=== PATIENT | female | born 1980 | race Caucasian/White ===

== ENCOUNTER 2023-01-15 11:29 | Emergency (ER) | payer OTHER, SELFPAY ==
[2023-01-15 11:38] VITALS: BP 117/80; PULSE 80; RESP 18; TEMP 36.8; O2SAT 99
--- NOTE | 2023-01-15 12:03 | DI.RAD_ITS ---
Exam(s) XR KNEE RT 4V AP,LAT,DEE,PAT EXAM: XR KNEE RT 4V AP,LAT,DEE,PAT CLINICAL HISTORY: fall, pain. TECHNIQUE: 2D digital imaging was performed of the right knee. Four views obtained. Merchant, AP, la teral and PA tunnel views were obtained. COMPARISON: No exams were available for comparison FINDINGS: BONES: No acute fracture is present. No bony destructive lesion is seen. JOINTS: The knee is normally aligned. No joint effusion is seen. SOFT TISSUE: Normal. IMPRESSION: Unremarkable radiographs of the right knee. DATA REPOSITORY: RADIATION DOSE DELIVERED:
--- NOTE | 2023-01-15 12:26 | ED.GENADUL_ITS ---
Discharge Plan Disposition Patient Disposition: Home Condition: Stable Discharge Details Clinical Impression: Contusion of right knee and lower leg Primary Care Provider: Bernabe Tomlinson ED Provider: Randal Cunha Home Meds and New Rx's Prescriptions: Continued gabapentin 300 mg Capsule 300 mg PO TID aripiprazole 5 mg tablet 5 mg PO DAILY Patient Comments: TAKE ONE TABLET BY MOUTH EVERY DAY quetiapine 400 mg tablet 200 mg PO DAILY Patient Comments: TAKE ONE TABLET BY MOUTH TWICE A DAY Discontinued trazodone 50 MG tablet 150 mg PO HS 0RF Patient Comments: pt states no longer taking Discharge Instructions Instructions: Contusion in Adults (ED) Additional Instructions: Please take acetaminophen (tylenol) - 650mg every 6 hours by mouth as needed for pain. Please use Charlie wrap and crutches. Weight-bear as tolerated over the next few weeks. Try to rest and stay off your knee as much as possible while it hurts. Please contact your primary care physician to arrange follow-up. Return to the ER immediately for any worsening or new concerning symptoms. Discharge Data Discharge Date/Time-TO BE ENTERED AT DEPARTURE: 01/15/23 13:59 Medical Decision Making 1234 -- 42yo f here 6 days post trip and fall with injury to anterior right knee and anterior proximal lower leg. Patient has significant bruising, tenderness and swelling. Consider fracture versus contusion. Will obtain x-ray imaging. Will give Tylenol and ice pack. 1343 --x-ray of the knee and tib-fib interpreted by radiology: No fracture. Plan for Charlie wrap and crutches. Usual customary discharge instructions reviewed with the patient. HPI General Mode of arrival: ambulatory . Date/Time Provider Initiated Documentation: 01/15/23 11:44 . Limitations to Documentation: no limitations . Information obtained by: patient . HPI Narrative: 42-year-old female presents with chief complaint of knee pain. Patient notes she tripped and fell going up her stairs about 6 days ago impacted her anterior right knee. Patient notes she has had continued pain since the fall. Pain worse with ambulation. She has associated bruising and swelling. No other injury. Related Data Home Medications Medication Instructions Recorded Confirmed aripiprazole 5 mg tablet 5 mg PO DAILY 01/15/23 01/15/23 gabapentin 300 mg capsule 300 mg PO TID 01/15/23 01/15/23 quetiapine 400 mg tablet 200 mg PO DAILY 01/15/23 01/15/23 Allergies Allergy/AdvReac Type Severity Reaction Status Date / Time amitriptyline Allergy Severe Numbness Unverified 11/27/17 10:23 of Tongue clonazepam Allergy Unknown Stomach Unverified 11/27/17 10:23 Upset diazepam Allergy Unknown Abd.Pain Unverified 11/27/17 10:23 hydrochlorothiazide Allergy Unknown Dizziness, Unverified 11/27/17 10:23 Hypotension hydroxyzine Allergy Unknown Fatigue Unverified 11/27/17 10:23 paroxetine Allergy Unknown Insomnia, Unverified 11/27/17 10:23 Lightheadedness propranolol Allergy Unknown Dizziness Unverified 11/27/17 10:23 venlafaxine HCl Allergy Unknown Agitation Unverified 11/27/17 10:23 [From Effexor] bupropion Allergy Anxiety Unverified 11/27/17 10:23 gabapentin Allergy Unverified 11/13/17 13:01 lamotrigine [From Lamictal] Allergy Unverified 11/13/17 13:01 olanzapine [From Zyprexa] Allergy Unverified 11/13/17 13:01 General Stated Complaint: Orthopedic OMAR: 4 Review of Systems Musculoskeletal Musculoskeletal: Reports as per HPI PFSH All Active Problems (Updated 01/15/23 @ 13:44 by Randal Cunha MD) Contusion of right knee and lower leg (Acute) Family History Father Neoplasm Squamous Cell Mother Essential hypertension Hemochromatosis Hyperlipidemia Neoplasm Thyroid Meniere's disease Social History Smoking/Tobacco Use Status: Never Smoking risk assessment performed?: Yes Alcohol Intake: never Drug use: Never Substance use type: does not use Do you feel safe in your relationship?: Yes Exam Cardio Rate: regular rate Rhythm: regular rhythm Pulses: posterior tibial pulses present Neuro Other: Distal right lower extremity motor and sensation intact Extrem Right lower extremity: knee Details: tenderness Location: of the patella and of the proximal tibia, swelling Location: of the patella and of the proximal tibia, abnormal ROM Details: pain with active ROM during Details: in flexion and ecchymosis (anterior knee); no lacerations Course Vital Signs Vital signs: Vital Signs Temperature 36.8 C 01/15/23 11:38 Pulse 80 06/26/23 11:38 Respiratory Rate 18 01/15/23 11:38 Blood Pressure 117/80 01/15/23 11:38 Pulse Oximetry 99 01/15/23 11:38 Temperature 36.8 C 01/15/23 11:38 Temperature Source Oral 01/15/23 11:38 Pulse 80 01/15/23 11:38 Respiratory Rate 18 01/15/23 11:38 Respiratory Effort Normal, Non-Labored 01/15/23 11:41 Blood Pressure 117/80 01/15/23 11:38 Blood Pressure Position Sitting 01/15/23 11:38 Pulse Oximetry 99 01/15/23 11:38 Oxygen Delivery Method Room Air 01/15/23 11:38 Oxygen Flow Rate 0 01/15/23 11:38 Pain Level 7 01/15/23 11:38
[2023-01-15] MEDS: Acetaminophen 500 MG TAB (12:39)
--- NOTE | 2023-01-15 12:49 | DI.RAD_ITS ---
Exam(s) XR TIB/FIB RT EXAM: XR TIB/FIB RT CLINICAL HISTORY: fall pain, ttp prox tibia. TECHNIQUE: 2D digital imaging was performed of the right tibia and fibula. Two images were obtained. AP and lateral views were obtained. COMPARISON: No exams were available for comparison FINDINGS: BONES: No acute fracture is present. No bony destructive lesion is seen. Visualized portion of knee a nd ankle joints are unremarkable. SOFT TISSUE: Soft tissue swelling anteriorly. IMPRESSION: Soft tissue swelling of the leg anteriorly, but no acute fracture or dislocation. DATA REPOSITORY: RADIATION DOSE DELIVERED:
--- NOTE | 2023-01-15 13:56 | NUR.NOTE ---
Nursing Note: Pt Had crutches and kayla wrap ordered. states she has crutches at home and does not want us to give her crutches. kayla wrap applied.
== END 2023-01-15 13:59 | disposition home or self-care (01) ==
PROVIDERS: Emergency Provider Student in an Organized Health Care Education/Training Program; PCP Internal Medicine
DX: S80.01XA Contusion of right knee, initial encounter (principal); W01.0XXA Fall on same level from slipping, tripping and stumbling without subsequent striking against object, initial encounter
CPT/HCPCS: 99284; 73564; 73590; 99283

== ENCOUNTER 2023-08-22 12:34 | Outpatient (REF) | payer MEDICAID, SELFPAY ==
--- OUTSIDE RECORDS SUMMARY | 2023-08-22 12:38 | XMS_ITS | Continuity of Care Document ---
Author Name Unknown Organization [facility] Address [address] [place] [address] Encounter [facility]TT[facility] FIN NBR [id number] Date(s): 10/02/22 - 10/02/[address] [id number] Discharge Disposition: Home or Self Care Attending Physician: ALEJANDRINA GARCIA Admitting Physician: ALEJANDRINA GARCIA Allergies, Adverse Reactions, Alerts Substance Reaction Severity Status gabapentin Tongue swelling Unknown Active Propranolol Hydrochloride Dizziness Unknown Ac tive Xanax Mild Active Valium Moderate Active Amitriptyline Hydrochloride Unknown Active Effexor XR Agitation Unknown Active Clopine Moderate Active HydrOXYzine Hydrochloride Fatigue Unknown Ac tive PARoxetine Hydrochloride Lightheadedness Insomnia Unknown Active diazePAM Abdominal pain Unknown Active hydroCHLOROthiazide Dizziness Unknown Active Assessment and Plan Future Appointments Medications acetaZOLAMIDE 250 mg oral tablet TAKE 1 TABLET BY MOUTH EVERY DAY Start Date: 09/29/22 Status: Ordered ARIPiprazole 5 mg oral tablet 5 mg = 1 tab, Oral, Daily, TAKE 1 TABLET BY MOUTH EVERY DAY Start Date: 09/29/22 Status: Ordered cyclobenzaprine 10 mg oral tablet 10 mg = 1 tab, Oral, TID, PRN pain, # 15 tab, 0 Refill(s) Start Date: 09/29/22 Status: Ordered cyclobenzaprine 10 mg oral tablet 10 mg = 1 tab, Oral, TID, PRN pain, # 15 tab, 0 Refill(s), Pharmacy: [id number], 167.64,cm, 09/29/22 7:16:00 EST, Height/Length Dosing, 77.56, kg, 09/29/22 7:16:00 EST, Weight Dosing Start Date: 09/29/22 Status: Ordered gabapentin 600 mg oral tablet 600 mg = 1 tab, Oral, TID, TAKE 2 TABLETS (1,200 MG) BY MOUTH 3 TIMES PER DAY Start Date: 09/29/22 Status: Ordered HYDROmorphone 2 mg oral tablet 2 mg = 1 tab, Oral, every 4 hr, PRN as needed for pain, # 12 tab, 0 Refill(s), Pharmacy: [id number], 167, cm, 10/01/22 10:20:00 EDT, Height/Length Dosing, 77.11, kg, 10/01/22 10:20:00 EDT,Weight Dosing Start Date: 10/01/22 Status: Ordered hydrOXYzine pamoate 50 mg oral capsule TAKE 2 CAPSULES BY MOUTH TWICE A DAY NEEDED Start Date: 09/29/22 Status: Ordered LORazepam 1 mg oral tablet PLEASE SEE ATTACHED FOR DETAILED DIRECTIONS Start Date: 09/29/22 Status: Ordered QUEtiapine 200 mg oral tablet 200 mg = 1 tab, Oral, Daily, TAKE 1 TABLET BY MOUTH AT BEDTIME Start Date: 09/29/22 Status: Ordered Problem List Condition Confirmation Course Effective Dates Status H ealth Status Informant Alcohol use disorder 1 Confirmed Active Asthma Confirmed Active Drug abuse 2 Confirmed Active Eating disorder Confirmed Active Hemochromatosis 3 Confirmed Active HSV-1 infection Confirmed Active Irritable bowel syndrome (IBS) Confirmed Active Anxiety and depression Confirmed Active PTSD (post-traumatic stress disorder) Confirmed Active RUQ pain Confirmed Active Vertigo Confirmed Active 1Sober 2Sober 3Controlled. Procedures Procedure Date Related Diagnosis Body Site Status Colonoscopy Completed EGD - Esophagogastroduodenoscopy Completed Tooth extraction 1 Comple francisco 13rd molar extraction Results Radiology Reports * Exam Date Time Procedure Performing Provider Status 10/02/22 11:48 AM US Pelvic Complete Key Hughes (Verified) Notes: (US Pelvic Complete) Reason For Exam: right sided pain US Pelvic Complete EXAM DESCRIPTION: US Pelvic Complete 10/02/2022 INDICATION: RIGHT SIDED PAIN TECHNIQUE: Transabdominal Grayscale and color Doppler ultrasound examination of the pelvis. Patient declined transvaginal scanning. Bladder was not well distended which limits evaluation. COMPARISON: CT abdomen/pelvis examination from 09/29/2022 as well as remote pelvic ultrasound from 12/14/2015 FINDINGS: The uterus measures 5.5 cm x 6.5 cm x 3.3 cm. No focal uterine lesion identified. The endometrial stripe was not well defined. The left ovary was not visualized The right ovary measures 3 cm x 3.6 cm x 3.9 cm. Small ovoid hypoechoic lesion on the right ovary with some internal echoes which is difficult to characterize based on incompletely distended bladder. This measures approximately 2.3 x 2.6 x 2.2 cm and may reflect small hemorrhagic cyst. No free fluid. IMPRESSION: Limited study secondary to factors detailed above Ovoid hypoechoic lesion on the right ovary with some internal echoes and through transmission likely reflecting small hemorrhagic cyst. This measures approximately 2.6 x 2.3 x 2.2 cm. Left ovary not identified No focal uterine lesion identified No free fluid. JOB #: [id number] Final Signed by: Heath Montes MD Signed (Electronic Signature): 10/02/2022 11:49 am Social History Social History Type Response Tobacco Former tobacco user Tobacco Use:. Sex Female US Pelvis * Heath Montes MD: VERIFY, VERIFY Event Display: Report EXAM DESCRIPTION: US Pelvic Complete 10/02/2022 INDICATION: RIGHT SIDED PAIN TECHNIQUE: Transabdominal Grayscale and color Doppler ultrasound examination of the pelvis. Patient declined transvaginal scanning. Bladder was not well distended which limits evaluation. COMPARISON: CT abdomen/pelvis examination from 09/29/2022 as well as remote pelvic ultrasound from 12/14/2015 FINDINGS: The uterus measures 5.5 cm x 6.5 cm x 3.3 cm. No focal uterine lesion identified. The endometrial stripe was not well defined. The left ovary was not visualized The right ovary measures 3 cm x 3.6 cm x 3.9 cm. Small ovoid hypoechoic lesion on the right ovary with some internal echoes which is difficult to characterize based on incompletely distended bladder. This measures approximately 2.3 x 2.6 x 2.2 cm and may reflect small hemorrhagic cyst. No free fluid. IMPRESSION: Limited study secondary to factors detailed above Ovoid hypoechoic lesion on the right ovary with some internal echoes and through transmission likely reflecting small hemorrhagic cyst. This measures approximately 2.6 x 2.3 x 2.2 cm. Left ovary not identified No focal uterine lesion identified No free fluid. JOB #: [id number] Final Signed by: Heath Montes MD Signed (Electronic Signature): 10/02/2022 11:49 am Patient Care team information Care Team Related Persons Name: LEONORA RAMIREZ Address: Home
--- OUTSIDE RECORDS SUMMARY | 2023-08-22 12:38 | XMS_ITS | Patient Health Record ---
Author Name Unknown Organization [facility], [facility] Address [address], [place] [id number] Care Team Providers Care Academic Director Name Role Phone Kimberly Skipbing Primary Care Provider [phone] Ayse Rivera Unavailable [phone] Dewey Capellan Unavailable [phone] ALLERGIES Allergen (clinical drug ingredient) Drug/Non Drug Allergy documented on EMR Reaction Allergy Type Onset Date Status cephalexin Cephalexin swallow difficulties Drug Allergy Active morphine Morphine vomiting Drug Allergy Active RESULTS Component Value Reference Range Notes In-house Rapid Strep Reviewed date:12/25/2022 12:55:51 PM Interpretation: Performing Lab: Notes/Report: Rapid Strep negative negative IRON AND TOTAL IRON BINDING CAPACITY Reviewed date:01/12/2023 09:59:26 AM Interpretation: Performing Lab:[facility], [facility] [facility] [employer] [id number]- [address] Notes/Report: Received Date: FASTING:YES FASTING: YES IRON, TOTAL 19 40-190 mcg/dL IRON BINDING CAPACITY 433 250-450 mcg/dL (nia c) % SATURATION 4 16-45 % (calc) CBC (INCLUDES DIFF/PLT) Reviewed date:01/12/2023 09:59:27 AM Interpretation: Performing Lab:[facility], [facility] [id number]- [address] Notes/Report: Received Date: FASTING:YES FASTING: YES WHITE BLOOD CELL COUNT 5.6 3.8-10.8 Thousand/ uL RED BLOOD CELL COUNT 4.51 3.80-5.10 Million/uL HEMOGLOBIN 8.7 11.7-15.5 g/dL HEMATOCRIT 31.1 35.0-45.0 % MCV 69.0 80.0-100.0 fL MCH 19.3 27.0-33.0 pg MCHC 28.0 32.0-36.0 g/dL RDW 17.4 11.0-15.0 % PLATELET COUNT 289 140-400 Thousand/uL MPV 9.8 7.5-12.5 fL ABSOLUTE NEUTROPHILS 2940 4427-6080 cells/uL ABSOLUTE LYMPHOCYTES 2128 850-3900 cells/uL ABSOLUTE MONOCYTES 392 200-950 cells/uL ABSOLUTE EOSINOPHILS 101 15-500 cells/uL ABSOLUTE BASOPHILS 39 0-200 cells/uL NEUTROPHILS 52.5 LYMPHOCYTES 38.0 MONOCYTES 7.0 EOSINOPHILS 1.8 BASOPHILS 0.7 PLATELET ESTIMATION Reviewed date:01/12/2023 09:59:27 AM Interpretation: Performing Lab:[facility], [employer] [id number]- [address] Notes/Report: Received Date: [id number] FASTING:YES FASTING: YES CBC MORPHOLOGY Reviewed date:01/12/2023 09:59:27 AM Interpretation: Performing Lab:[facility], [employer] [id number]- [address] Notes/Report: Received Date: [id number] FASTING:YES FASTING: YES CBC MORPHOLOGY NORMAL Elliptocytes 1 + Anisocytosis 1 + Microcytosis 2 + Polychromasia 1 + Hypochromasia 2 + HEPATIC FUNCTION PANEL Reviewed date:06/13/2023 03:39:03 PM Interpretation: Performing Lab:[facility], [facility], [id number]- [address] Notes/Report: Received Date: [id number] FASTING:NO FASTING: NO PROTEIN, TOTAL 6.1 6.1-8.1 g/dL ALBUMIN 3.8 3.6-5.1 g/dL GLOBULIN 2.3 1.9-3.7 g/dL (calc) ALBUMIN/GLOBULIN RATIO 1.7 1.0-2.5 (calc) BILIRUBIN, TOTAL 0.3 0.2-1.2 mg/dL BILIRUBIN, DIRECT 0.0 < OR = 0.2 mg/dL BILIRUBIN, INDIRECT 0.3 0.2-1.2 mg/dL (calc) ALKALINE PHOSPHATASE 72 31-125 U/L AST 22 10-30 U/L ALT 21 6-29 U/L VITAMIN B12/FOLATE, SERUM PA BRANDON Reviewed date:06/13/2023 03:39:03 PM Interpretation: Performing Lab:Z[facility], [employer] [id number]- [address] Notes/Report: Received Date: FASTING:NO FASTING: NO VITAMIN B12 549 009-2671 pg/mL FOLATE, SERUM 18.6 Reference Range Low: <3.4 Borderline: 3.4-5.4 Normal: >5.4 THYROID PANEL WITH TSH Reviewed date:06/13/2023 03:39:03 PM Interpretation: Performing Lab:[facility], [employer] [id number]- [address] Notes/Report: Received Date: FASTING:NO FASTING: NO T3 UPTAKE 35 22-35 % T4 (THYROXINE), TOTAL 4.5 5.1-11.9 mcg/dL FREE T4 INDEX (T7) 1.6 1.4-3.8 TSH 0.84 Reference Range > or = 20 Years 0.40-4.50 Ranges First trimester 0.26-2.66 Second trimester 0.55-2.73 Third trimester 0.43-2.91 Thyroid Peroxidase (TPO) Ab Reviewed date:06/29/2023 01:52:06 PM Interpretation: Performing Lab:[facility], [facility] [place][Note 2], Phone - [phone], Director - Raz Notes/Report: Thyroid Peroxidase (TPO) Ab 12 0-34 IU/mL Thyroid Panel With TSH Reviewed date:06/29/2023 01:52:06 PM Interpretation: Performing Lab:[facility] [place], [facility] [place][Note 2], Phone - [phone], Director - Raz Notes/Report: TSH 0.854 0.450-4.500 uIU/mL Thyroxine (T4) 4.7 4.5-12.0 ug/dL T3 Uptake 28 24-39 % Free Thyroxine Index 1.3 1.2-4.9 REASON FOR REFERRAL Reason Chronic Headaches Eval and Tx Diagnosis 1 Headache, unspecifie d (R51.9) Referral Organization [facility] Referring Provider First Name Ayse Referring Provider Last Name Miguel Referring Provider Speciality Nurse Julius chahal Referred Provider Dipak Gan MD Referred Provider Specialty Neurology Referral Priority Routine Reason Chronic anemia with hemochromatosis marker Diagnosis 1 Other iron deficienc y anemia (D50.8) Referral Organization [facility] Referring Provider First Name Crescencio Referring Provider Last Name Kimberly Referring Provider Speciality Physician Sewing Machine Tester Referred Provider [facility], . Referred Provider Specialty Hematology/O ncology Referral Priority Routine Reason Unexplained CINDY Co lonoscopy Recommended by Heme Eval and Tx Diagnosis 1 Iron deficiency anem ia, unspecified iron deficiency anemia type (D50.9) Referral Organization [facility] Referring Provider First Name Crescencio Referring Provider Last Name Kimberly Referring Provider Speciality Physician Sewing Machine Tester [facility], . Referred Provider Specialty Gastroentero logy Referral Priority Routine Reason Hgb 8.[address] placed patient on iron pill Patient would like 2nd opinion Diagnosis 1 Iron deficiency anem ia, unspecified iron deficiency anemia type (D50.9) Referral Organization [facility] Referring Provider First Name Crescencio Referring Provider Last Name Kimberly Referring Provider Speciality Physician Sewing Machine Tester Referred Provider [facility], . Referred Provider Specialty Hematology/O ncology Referral Priority Routine Referral Appointment Date 02/14/2023 Reason Please eval test and treat. Diagnosis 1 Palpitation (R00.2) Referral Organization [facility] Referring Provider First Name Crescencio Referring Provider Last Name Kimberly Referring Provider Speciality Physician Sewing Machine Tester Referred Provider [facility], . Referred Provider Specialty Cardiology Referral Priority Routine MEDICATIONS Medication SIG (Take, Route, Frequency, Duration) Notes Start Date End Date Status acetaZOLAMIDE 250 MG 1 tablet Orally Once a day for 30 day(s) Prescribed by Psychiatry Dr. Isaac Castillo Active SEROquel 400 MG 1 tablet at bedtime Orally Once a day for 30 day(s) Dr. Isaac Castillo Active CeleXA 40 MG 1 tablet with meal Orally Once a day Active Abilify 5 MG 1 tablet Orally Once a day for 30 day(s) Active hydrOXYzine HCl Pt states she takes 250mg twice daily Active Gabapentin 600 MG 2 tablets by mouth three times a day Active IMMUNIZATIONS Vaccine Route Administration Date Status Comme nts COVID-19 Bivalent mRNA, LNP-S, PF, 30 mcg/0.3ml Dose ([facility]) Unknown 05/03/2022 Administered COVID-19 mRNA 30 mcg/0.3mL (Pfizer) Unknown 10/26/2020 Administered COVID-19 mRNA 30 mcg/0.3mL (Pfizer) Unknown 11/16/2020 Administered COVID-19 mRNA 30 mcg/0.3mL (Pfizer) Unknown 05/26/2021 Administered COVID-19,mRNA,LNP-S,PF,tri s-sucrose,30mcg/0.3ml (Pfizer) Unknown 06/30/2023 Administered Influenza (Quad), 2 yrs and above Unknown 03/24/2022 Administered Influenza (Quad), 3 yrs and above Unknown 05/25/2018 Administered Influenza (Quad), 3 yrs and above Unknown 05/26/2021 Administered Influenza (Quad), 6 mos + IM Intramuscular 07/02/2023 Admi nistered Pneumococcal Polysac Vaccine 23-V 2 Yrs>SubqIm Unknown 08/26/2019 Administered Tdap Unknown 03/10/2022 Administered SOCIAL HISTORY Tobacco Use: Social History Observation Description Date Details (start date - stop date) Never Smoker NA - NA Sex Assigned At : Social History Observation Description Sex Assigned At Unknown Tobacco Use/Smoking Question Answer Notes Are you a nonsmoker Alcohol Screen (Audit-C) Question Answer Notes Did you have a drink containing alcohol in the p ast year? No Points 0 Interpretation Negative Tobacco use other than smoking: Question Answer Notes Are you an other tobacco user? Yes v apes PROBLEMS Problem Type ICD Code Onset Dates Problem Status W/U Status Risk SNOMED Code Notes Problem Other chronic pain (G89.29) Active confirmed 84394143 Problem Chronic fatigue (R53.82) Active confirmed 68108499 Problem Alcoholism (F10.20) Active confirmed 7235394 Problem DAT (generalized anxiety disorder) (F41.1) Active confirmed 19578750 Problem Abnormal mammogram (R92.8) Active confirmed 170828311 Bilateral focal asymmetries bilateral breasts; probably represent normal tissue. Repeat bilateral mammogram in 6 months, due August 2021 Problem Other iron deficiency anemia (D50.8) Active confirmed 54181296 Problem PTSD (post-traumat ic stress disorder) (F43.10) Active confirmed 08190127 Problem Iron deficiency anemia, unspecified iron deficiency anemia type (D50.9) Active confirmed 35460129 Problem Overweight (BMI 25.0-29.9) (E66.3) Active confirmed 115227613 Problem Opioid abuse (F11.10) Active confirmed 3390030 Problem Left sided sciatica (M54.32) Active confirmed 17522226 Problem Former cigarette smoker (Z87.891) Active confirmed 418379929 Problem Meniere's disease of both ears (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) Active confirmed 4690755978231831 Problem Vapes nicotine containing substance (Z72.0) Active confirmed 684494133 Problem Depression, unspecified depression type (F32.A) Active confirmed 82817621 VITAL SIGNS Heart Rate 84 /min 07/02/2023 Temperature 98.3 degrees Fahrenheit 07/02/2023 Respiratory Rate 16 /min 07/02/2023 Oximetry 98 % 07/02/2023 Blood pressure diastolic 66 mm Hg 07/02/2023 Height 66 in 07/02/2023 Blood pressure systolic 115 mm Hg 07/02/2023 Weight 209.1 lbs 07/02/2023 BMI 33.75 kg/m2 07/02/2023 Encounters Encounter Location Date Provider Diagnosis [facility] [address] [facility] [address] Romero Pugh [place] [id number] 02/27/2023 Crescencio [facility] [address] [place] [address] Wes Mendez [place] [id number] 05/02/2023 Crescencio Harris [facility] [address] [place] [address] Wes Mendez MD [id number] 05/14/2023 Crescencio Harris [facility] [address] [place] [address] Wes [place] [id number] 05/16/2023 Crescencio [facility] [address] [place] [address] Wes Mendez [place] [id number] 06/04/2023 Crescencio Harris [facility] [address] [place] [address] Wes Mendez [place] [id number] 06/06/2023 Crescencio Harris [facility] [address] [place] [address] Wes Mendez MD [id number] 06/27/2023 Crescencio Harris [facility], [facility] [address] [place] [id number] 12/22/2022 Crescencio Harris Eczematous dermatiti s of right lower eyelid H01.132 [facility] [address] Luis Alberto Ivan [place] [id number] 12/25/2022 Crescencio Harris Sore throat J02.9 an d Pharyngitis, unspecified etiology J02.9 [facility], [facility] [address] [place] [id number] 01/04/2023 Crescencio Harris Iron deficiency anemia, unspecified iron deficiency anemia type D50.9 and Anal itching L29.0 [facility], [facility] [address] Luis Alberto Mendez [place] [id number] 01/09/2023 Dewey Capellan Fall (on) (from) other stairs and steps, initial encounter W10.8XXA ; Injury of right knee, initial encounter S89.91XA ; Injury of right wrist, initial encounter S69.91XA ; Injury of second toe, left, initial encounter S99.922A and Injury of toe on left foot, initial encounter S99.922A [facility] [address] [facility] [address] Romero Pugh [place] [id number] 06/08/2023 Crescencio Harris Depression, unspecified depression type F32.A ; Chronic fatigue R53.82 ; Unexplained weight gain R63.5 ; Abnormal thyroid exam R94.6 and Encounter for smoking cessation counseling Z71.6 [facility], [facility] [address] [place] [id number] 07/02/2023 Crescencio Harris Low TSH level R79.89 ; Chronic fatigue R53.82 and Encounter for immunization Z23 [facility], [facility] [address] [place] [id number] 08/23/2022 Ayse Rivera Other chronic pain G89.29 and Headache, unspecified R51.9 [facility], [facility] [address] [place] [id number] 08/28/2022 Ayse Rivera [facility], [facility] [address] [place] [id number] 09/18/2022 Crescencio Harris [facility], [facility] [address], [place] [id number] 12/26/2022 Crescencio Harris Sore throat J02.9 [facility], [facility] [address], [place] [id number] 12/27/2022 Skipa Kimberly Sore throat J02.9 [facility] [address], [place] [id number] 12/28/2022 Crescencio Harris Hemorrhoids, unspecified hemorrhoid type K64.9 [facility], [facility] [address], [place] [id number] 01/02/2023 Crescencio Harris [facility], [address] [id number] 01/03/2023 Crescencio Harris [facility] [address] [place] [address] [id number] 01/03/2023 Crescencio Harris [facility] [address] [place] [address] [id number] 01/03/2023 Crescencio Harris [facility] [address] [place] [address] [id number] 01/09/2023 Crescencio Harris Iron deficiency anemia, unspecified iron deficiency anemia type D50.9 [facility], [address] [id number] 01/09/2023 Dewey Capellan Nausea with vomiting , unspecified R11.2 and Adverse effect of unspecified narcotics, initial encounter T40.605A [facility] [address] [facility] [place] [id number] 01/10/2023 Crescencio Harris [facility] [address] [place] [address] [id number] 04/02/2023 Crescencio Harris [facility] [address] [place] [address] [id number] 04/30/2023 Crescencio Harris [facility] [address] [place] [address] [id number] 05/11/2023 Crescencio Harris [facility] [address] [place] [address] [place] [id number] 05/15/2023 [facility] [address] [facility] [place] [id number] 06/13/2023 Crescencio Harris [facility], [facility] [address] [facility] [place] [id number] 06/13/2023 Crescencio Harris Abnormal serum thyroxine (T4) level R79.89 [facility], [facility] [address] [facility] [place] [id number] 06/20/2023 Crescencio Harris [facility], [facility] [address] [facility] [place] [id number] 06/29/2023 Crescencio Harris [facility], [address] [id number] 07/09/2023 Crescencio Harris Encounter for smokbethany g cessation counseling Z71.6 [facility], [address] [place] [id number] 07/25/2023 Crescencio Harris ASSESSMENTS Encounter Date Diagnosis Assessment Notes Treatment Notes Treatment Clinical Notes 08/23/2022 Other chronic pain (ICD-10 - G89.29) 08/23/2022 Headache, unspecified (ICD-10 - R51.9) 12/22/2022 Eczematous dermatitis of right lower eyelid (ICD-10 - H01.132) Symptoms consistent with dermatitis of the eye. Will trial triamcinolone. Discussed the soak and seal method. And when symptoms resolve switch to vaseline. 12/25/2022 Sore throat (ICD-10 - J02.9) 12/25/2022 Pharyngitis, unspecified etiology (ICD-10 - J02.9) Sore throat of unknown etiology. Patient does have swollen lymph nodes and endorses very bad sore throat with difficulty swallowing. Physical exam and vitals reassuring. Given strep has been going around will treat with abx. If no improvement will obtain ultrasound of neck to rule out mass/abscess/lympha denopathy. 12/26/2022 Sore throat (ICD-10 - J02.9) 12/27/2022 Sore throat (ICD-10 - J02.9) 12/28/2022 Hemorrhoids, unspecified hemorrhoid type (ICD-10 - K64.9) 01/04/2023 Iron deficiency anemia, unspecified iron deficiency anemia type (ICD-10 - D50.9) Refer to GI per adobe layer helper request. 01/04/2023 Anal itching (ICD-10 - L29.0) Most likely secondary to anal fissure. Refer to GI. 01/09/2023 Iron deficiency anemia, unspecified iron deficiency anemia type (ICD-10 - D50.9) 01/09/2023 Fall (on) (from) other stairs and steps, initial encounter (ICD-10 - W10.8XXA) 01/09/2023 Injury of right knee, initial encounter (ICD-10 - S89.91XA) 01/09/2023 Nausea with vomiting, unspecified (ICD-10 - R11.2) 01/09/2023 Adverse effect of unspecified narcotics, initial encounter (ICD-10 - T40.605A) 06/08/2023 Chronic fatigue (ICD-10 - R53.82) Rule out nutritional deficiency, liver impairment, and hormone deficiency. I have reviewed her Heme-Onc notes and I do not believe this is secondary to her CINDY or kidney function. 06/08/2023 Depression, unspecified depression type (ICD-10 - F32.A) 06/13/2023 Abnormal serum thyroxine (T4) level (ICD-10 - R79.89) 07/02/2023 Chronic fatigue (ICD-10 - R53.82) Continue to monitor and evaluate 07/02/2023 Low TSH level (ICD-10 - R79.89) Patient requesting treatment of low T4. Advised patient given she has a low TSH, treatment could lead her TSH to drop further. Given low TSH with low T4, would like to assess pituitary. MRI ordered. 07/09/2023 Encounter for smoking cessation counseling (ICD-10 - Z71.6) 07/02/2023 Encounter for immunization (ICD-10 - Z23) 06/08/2023 Unexplained weight gain (ICD-10 - R63.5) 01/09/2023 Injury of right wrist, initial encounter (ICD-10 - S69.91XA) 06/08/2023 Abnormal thyroid exam (ICD-10 - R94.6) Physical exam inconclusive. Given patient has weight gain and chronic fatigue I believe it is reasonable to examine her thyroid as well as her thyroid hormones. We will order an ultrasound and check hormone levels. Will also check her vitamin B12 and folate, however, explained to patient that this is unlikely given microcytic anemia. 01/09/2023 Injury of second toe, left, initial encounter (ICD-10 - S99.922A) 06/08/2023 Encounter for smoking cessation counseling (ICD-10 - Z71.6) Patient would like to stop vaping. 01/09/2023 Injury of toe on left foot, initial encounter (ICD-10 - S99.922A) 12/22/2022 Other [place]e: Care Instructions material was printed 01/09/2023 Other Go to ER for X-rays, possible CT/MRI, and if pain medications are needed beyond what we can provide here at the clinic. Patient was able to get a hold of a friend that is going to pick her up in a half hour to drive her into the ER. 06/08/2023 Other PLAN OF TREATMENT Pending Test Test Name Order Date MRI : Brain 07/02/2023 Ultrasound : Neck 06/08/2023 Thyroid Panel With TSH 06/08/2023 Vitamin B12 and Folate 06/08/2023 CBC With Differential/Platelet 3 Fe+TIBC+Asher 01/04/2023 Hepatic Function Panel (6) 06/08/2023 Future Test Test Name Order Date Thyroid Panel With TSH 07/30/2023 Insurance Providers Payer Name Payer Address Payer Phone Subscriber Number Group Number Insured Name Patient Relationship to Insured Coverage Start Date Coverage End Date [employer] [place] [employer] [address] [place] [phone] [id number] Maritza Chappell Self - patient is the insured MEDICAL (GENERAL) HISTORY Medical History History ICD Code Opioid abuse Alcoholism Meniere's Disease Surgical History Surgery Date(Month/Year) Gastric Sleeve 08/2019
--- OUTSIDE RECORDS SUMMARY | 2023-08-22 12:38 | XMS_ITS | Continuity of Care Document ---
Author Name Unknown Organization [facility] Address [address] [place] [address] Encounter LTTL_GA FIN NBR [id number] Date(s): 01/27/23 - 01/27/[address] [address] Encounter Diagnosis Muscle strain of lower leg(Discharge Diagnosis) - 01/27/23 Discharge Disposition: Home or Self Care Attending Physician: Leonora Mancera MD Admitting Physician: Leonora Mancera MD Allergies, Adverse Reactions, Alerts Substance Reaction Severity Status gabapentin 1 Tongue swelling Unknown Active Propranolol Hydrochloride Dizziness Unknown Ac tive Xanax Mild Active Valium Moderate Active Amitriptyline Hydrochloride Unknown Active Effexor XR Agitation Unknown Active Clopine Moderate Active HydrOXYzine Hydrochloride Fatigue Unknown Ac tive PARoxetine Hydrochloride Lightheadedness Insomnia Unknown Active diazePAM Abdominal pain Unknown Active hydroCHLOROthiazide Dizziness Unknown Active 1Patient states she is no longer allergic to gabapentin, she currently is taking this medication. Functional Status 01/27/23 Other exposure to Infectious Disease Non e Medications ARIPiprazole 5 mg oral tablet 5 mg = 1 tab, Oral, Daily, TAKE 1 TABLET BY MOUTH EVERY DAY Start Date: 09/29/22 Status: Ordered CeleXA 40 mg oral tablet 40 mg = 1 tab, Oral, Daily, 2 tabs daily., # 30 tab, 0 Refill(s) Start Date: 10/03/22 Status: Ordered gabapentin 600 mg oral tablet 600 mg = 1 tab, Oral, TID, TAKE 2 TABLETS (1,200 MG) BY MOUTH 3 TIMES PER DAY Start Date: 09/29/22 Status: Ordered QUEtiapine 200 mg oral tablet 200 mg = 1 tab, Oral, Daily, TAKE 1 TABLET BY MOUTH AT BEDTIME Start Date: 09/29/22 Status: Ordered Mental Status 01/27/23 Eye Opening Response [place] Spontaneous ly Best Verbal Response Macario Oriented Best Motor Response [place] Obeys comman ds Macario Coma Score 15 Problem List Condition Confirmation Course Effective Dates [...] Status Colonoscopy Completed EGD - Esophagogastroduodenoscopy Completed Surgery 1 Completed Tooth extraction 2 Comple francisco 1bariatric surgery 3 years ago. 23rd molar extraction Vital Signs Most recent to oldest [Reference Range]: 1 Temperature Temporal Artery [36-38 Deg C ] 36.6 Deg C (01/27/23 9:21 AM) Peripheral Pulse Rate [60-100 bpm] 94 bp m (01/27/23 9:21 AM) Respiratory Rate [12-24 br/min] 16 br/mi n (01/27/23 9:21 AM) Blood Pressure [90-140/60-90 mmHg] 116/7 6mmHg (01/27/23 9:21 AM) Weight Dosing 81.00 kg (01/27/23 9:44 AM) Weight Estimated 81.00 kg (01/27/23 9:21 AM) Height/Length Dosing 167.000 cm (01/27/23 9:44 AM) Height/Length Estimated 167.000 cm (01/27/23 9:21 AM) Social History Social History Type Response Smoking Status Smoking tobacco use: Former tobacco user;Never entered on: 10/03/22 Sex Female Hospital Discharge Instructions Patient Education 01/27/2023 09:03:21 Muscle Strain Muscle Strain A muscle strain is an injury that occurs when a muscle is stretched beyond its normal length. Usually, a small number of muscle fibers are torn when this happens. There are three types of muscle strains. First-degree strains have the least amount of muscle fiber tearing and the least amount of pain. Second-degree and third-degree strains have more tearing and pain. Usually, recovery from muscle strain takes 1???2 weeks. Complete healing normally takes 5???6 weeks. What are the causes? This condition is caused when a sudden, violent force is placed on a muscle and stretches it too far. This may occur with a fall, while lifting, or during sports. What increases the risk? This condition is more likely to develop in athletes and people who are physically active. What are the signs or symptoms? Symptoms of this condition include: ??? Pain. ??? Tenderness. ??? Bruising. ??? Swelling. ??? Trouble using the muscle. How is this diagnosed? This condition is diagnosed based on a physical exam and your medical history. Tests may also be done, including an X-ray, ultrasound, or MRI. How is this treated? This condition is initially treated with GOODEN therapy. This therapy involves: ??? Protecting the muscle from being injured again. ??? Resting the injured muscle. ??? Icing the injured muscle. ??? Applying pressure (compression) to the injured muscle. This may be done with a splint or elastic bandage. ??? Raising (elevating) the injured muscle. Your health care provider may also recommend medicine for pain. Follow these instructions at home: If you have a removable splint: ??? Wear the splint as told by your health care provider. Remove it only as told by your health care provider. ??? Check the skin around the splint every day. Tell your health care provider about any concerns. ??? Loosen the splint if your fingers or toes tingle, become numb, or turn cold and blue. ??? Keep the splint clean. ??? If the splint is not waterproof: ??? Do not let it get wet. ??? Cover it with a watertight covering when you take a bath or a shower. Managing pain, stiffness, and swelling ??? If directed, put ice on the injured area. To do this: ??? If you have a removable splint, remove it as told by your health care provider. ??? Put ice in a plastic bag. ??? Place a towel between your skin and the bag. ??? Leave the ice on for 20 minutes, 2???3 times a day. ??? Remove the ice if your skin turns bright red. This is very important. If you cannot feel pain, heat, or cold, you have a greater risk of damage to the area. ??? Move your fingers or toes often to reduce stiffness and swelling. ??? Raise (elevate) the injured area above the level of your heart while you are sitting or lying down. ??? Wear an elastic bandage as told by your health care provider. Make sure that it is not too tight. General instructions ??? Take qocj-qfu-facjvds and prescription medicines only as told by your health care provider. Treatment may include muscle relaxants or medicines for pain and inflammation that are taken by mouth or applied to the skin. ??? Restrict your activity and rest the injured muscle as told by your health care provider. Gentlemovements may be allowed. ??? If physical therapy was prescribed, do exercises as told by your health care provider. ??? Do not put pressure on any part of the splint until it is fully hardened. This may take severalhours. ??? Do not use any products that contain nicotine or tobacco. These products include cigarettes, chewing tobacco, and vaping devices, such as e-cigarettes. If you need help quitting, ask your health care provider. ??? Ask your health care provider when it is safe to drive if you have a splint. ??? Keep all follow-up visits. This is important. How is this prevented? Warm up before exercising. This helps to prevent future muscle strains. Contact a health care provider if: ??? You have more pain or swelling in the injured area. Get help right away if: ??? You have numbness or tingling in the injured area. ??? You lose a lot of strength in the injured area. Summary ??? A muscle strain is an injury that occurs when a muscle is stretched beyond its normal length. ??? This condition is caused when a sudden, violent force is placed on a muscle and stretches it too far. ??? This condition is initially treated with GOODEN therapy, which involves protecting, resting, icing, compressing, and elevating. ??? Gentle movements may be allowed. If physical therapy was prescribed, do exercises as told by your health care provider. This information is not intended to replace advice given to you by your health care provider. Make sure you discuss any questions you have with your health care provider. Document Revised: 09/26/2021 Document Reviewed: 09/26/2021 [employer] Patient Education ?? 2022 [employer]. Follow Up Care 01/27/2023 09:21:56 With:Follow up with primary care provider Address: When:3 to 5 days Physician Emergency department Note * Leonora Mancera MD: PERFORM Event Display: ED Note Physician Authored Date: [id number] LEONOR RAMIREZ :1980 Age:42 years Sex:Female Visit Date:01/27/2023 Basic Information Time Seen: Leonora Mancera MD / 01/27/2023 09:44 Chief Complaint Patient complins of atraumatic R calf pain that she woke up with this AM. Reports hx DVT in LLE. Patient concerned that she has a flight back to [place] tomorrow. Patient reports she quit drinking yesterday. History Of Present Illness: 42-year-old female presents the ER complaining of right calf pain that she woke up with 4 hours ago.?? The patient states she has been doing some swimming recently as she is here on vacation [facility] but denies any specific injuries otherwise.?? She is been wearing a knee immobilizer on the right knee for the past several weeks??as well. ??This morning she woke up with??right calf pain that is worse with movement and now comes in for evaluation. ??She was concerned because she has a history of DVT in the left lower extremity that occurred 6 months ago after getting out of a cast. ??Shesays she was treated with blood thinners for 1 month based on a prescription from her local ER??but this was not continued by her primary care??after the 1 month.?? Denies any chest pain or shortnessof breath. ??No numbness or weakness in the foot. Review of Systems: CONSTITUTIONAL:??No fevers or chills. EYES:??No change in vision. ENT:??No sore throat. ??No headache. ??No neck pain. CARDIOVASCULAR:??No chest pain, palpitations or passing out episodes. RESPIRATORY:??No cough, shortness of breath or hemoptysis. GI:??No abdominal pain. ??No nausea, vomiting or diarrhea. :??No change in urination. SKIN:??No rash. NEUROLOGIC:??No focal numbness or weakness. PSYCHIATRIC:??No suicidal ideation. LYMPH:??No swelling. ?? Review of systems otherwise as stated in HPI Physical Exam Vitals & Measurements T:??36.6?C ??(Temporal Artery)?? HR:??94??(Peripheral)?? RR:??16?? BP:??116/76?? SpO2:??98%?? HT:??167.000??cm?? WT:??81.00??kg??(Estimated)?? O2 Therapy:??Room air?? GENERAL:??Awake and alert. ??No acute distress. HEENT:??Normocephalic, atraumatic. ??Mucous membranes are moist. HEART:??Regular rate and rhythm. ??S1 and S2. LUNGS:??No respiratory distress. EXTREMITIES: Focused examination of the bilateral lower extremities reveals no obvious asymmetry. ??There are scattered ecchymoses of varying ages on the anterior bilateral lower extremities.?? No medial thigh tenderness.?? There is mild tenderness to the right mid posterior??calf. ??No palpable cord.?? Plantar and dorsiflexion are intact??without pain or restriction. ??No palpable muscle defect.?? PT and DP 2+. ??Motor and sensory intact distally. NEUROLOGIC:??Awake, alert, and oriented x3. ??Motor and sensory grossly intact. SKIN:??Warm and dry. VASCULAR:??Radial 2+ bilaterally. Medical Decision Making: Right lower extremity pain. ??The patient symptoms are most consistent with muscle strain due to recent swimming??and possibly compensatory muscle use given recent knee immobilizer use.?? There is no??motor defect or palpable??muscle defect to suggest??tendon rupture.?? Itviw-cm-dfsu ultrasound is low probability for DVT. ??She has no signs or symptoms of PE.?? Given the??benign exam and low probability DVT, I do not believe??the benefit of anticoagulation??outweighs the risk given the low suspicion.?? I did offer to set the patient up with formal radiology ultrasound on Sunday when it is available here??however??unfortunately she is flying back to [place] tomorrow.?? I recommendedshe call her primary care Sunday to set up a formal outpatient ultrasound this week??for confirmation??which she has verbalized understanding to.?? In the meantime if she develops worsening symptoms, chest pain or shortness of breath,??then proceed to her local ER immediately for reevaluation.?? Discharged with instructions for rest, NSAIDs,??Tylenol, ice, follow-up as directed. Procedure Guvui-hg-nrqi ultrasound right lower extremity shows good compressibility of the venous system fromthe inguinal ligament down to the ankle.?? No intravascular hyperechoic material. ??Low probabilityfor DVT. No Qualifying Data Assessment/Plan 1.??Muscle strain of lower leg??S86.919A Orders: Discharge Patient, 01/27/23 10:04:00 EDT Patient Education Muscle Strain Follow Up With When Contact Information Follow up with primary care provider Within 3 to 5 days Additional Instructions: Medication Reconciliation Unchanged ARIPiprazole (ARIPiprazole 5 mg oral tablet)1 tab Oral (given by mouth) every day. TAKE 1 TABLET BYMOUTH EVERY DAY. ?? citalopram (CeleXA 40 mg oral tablet)1 tab Oral (given by mouth) every day. 2 tabs daily.. ?? gabapentin (gabapentin 600 mg oral tablet)1 tab Oral (given by mouth) 3 times a day. TAKE 2 TABLETS(1,200 MG) BY MOUTH 3 TIMES PER DAY. ?? QUEtiapine (QUEtiapine 200 mg oral tablet)1 tab Oral (given by mouth) every day. TAKE 1 TABLET BY MOUTH AT BEDTIME. Problem List/Past Medical History Ongoing Alcohol use disorder Anxiety and depression Asthma Drug abuse Eating disorder Hemochromatosis HSV-1 infection Irritable bowel syndrome (IBS) PTSD (post-traumatic stress disorder) RUQ pain Vertigo Historical No qualifying data Procedure/Surgical History ???Colonoscopy???EGD - Esophagogastroduodenoscopy???Surgery???Tooth extraction Allergies Clopine Valium Xanax Amitriptyline Hydrochloride Effexor XR??(Agitation) HydrOXYzine Hydrochloride??(Fatigue) PARoxetine Hydrochloride??(Lightheadedness, Insomnia) Propranolol Hydrochloride??(Dizziness) diazePAM??(Abdominal pain) gabapentin??(Tongue swelling) hydroCHLOROthiazide??(Dizziness) Social History Alcohol Past Electronic Cigarette/Vaping Electronic Cigarette Use: Use, within last 90 days. Type: Nicotine infused. Use per Day: 26-50 Inhales/day. Employment/School Unemployed Home/Environment Lives with tenant. Living situation: Home/Independent. Sexual Sexually active: Yes. Substance Use Past Tobacco Former tobacco user Tobacco Use:. Never Smokeless Tobacco use:. Family History Cancer: Mother and Father. Diabetes mellitus: Grandmother (M). Hemochromatosis: Mother. Hypertension: Mother. Meniere disease: Mother. Pulmonary embolism: Father. Stroke: Mother. Electronically Signed on 01/27/23 10:15 AM Leonora Mancera MD Emergency department Discharge instructions * Leonora Mancera MD: PERFORM Event Display: ED Discharge Information Authored Date: [id number] LEONOR RAMIREZ :1980 Age:42 years Sex:Female Visit Date:01/27/2023 Discharge Instructions We would like to thank you for allowing us to assist you with your healthcare needs. The following includes patient education materials and information regarding your injury/illness. ? Bedside tpomm-hf-fiml ultrasound was??low probability for DVT today.?? We recommend you??obtain a formal ultrasound through radiology.?? Since you are traveling home??tomorrow, contact your primary care to schedule that test??this week.?? Proceed to the closest ER for worsening symptoms or development of chest pain or shortness of breath at any point. Diagnosis from Today's Visit Muscle strain of lower leg Discharge Vitals Temperature??(Temporal Artery) 97.9 ??F (36.6 ??C) Heart Rate??(Peripheral) 94 Respiratory Rate?? 16 Blood Pressure?? 116/76?? Height?? 65.75 in (167.000 cm) Weight??(Estimated) 178.61 lb (81.00 kg) Allergies Clopine Valium Xanax Amitriptyline Hydrochloride Effexor XR??(Agitation) HydrOXYzine Hydrochloride??(Fatigue) PARoxetine Hydrochloride??(Lightheadedness, Insomnia) Propranolol Hydrochloride??(Dizziness) diazePAM??(Abdominal pain) gabapentin??(Tongue swelling) hydroCHLOROthiazide??(Dizziness) What to Do Next You Need to Schedule the Following Appointments Follow Up with??Follow up with primary care provider When:??Within 3 to 5 days You were treated today on an emergency basis; it may be holcomb to contact your primary care provider to notify them of your visit today. You may have been referred to your regular doctor or a specialist, please follow up as instructed. If your condition worsens or you can't get in to see the doctor, contact the Emergency Department. Medications What How Much When Instructions Next Dose Unchanged ARIPiprazole (ARIPiprazole 5 mg oral tablet) 1 tab Oral (given by mouth) Every day TAKE 1 TABLET BY MOUTH EVERY DAY ?? Unchanged citalopram (CeleXA 40 mg oral tablet) 1 tab Oral (given by mouth) Every day 2 tabs daily. ?? Unchanged gabapentin (gabapentin 600 mg oral tablet) 1 tab Oral (given by mouth) 3 times a day TAKE 2 TABLETS (1,200 MG) BY MOUTH 3 TIMES PER DAY ?? Unchanged QUEtiapine (QUEtiapine 200 mg oral tablet) 1 tab Oral (given by mouth) Every day TAKE 1 TABLET BY MOUTH AT BEDTIME ?? Education Materials Muscle Strain A muscle strain is an injury that occurs when a muscle is stretched beyond its normal length. Usually, a small number of muscle fibers are torn when this happens. There are three types of muscle strains. First-degree strains have the least amount of muscle fiber tearing and the least amount of pain. Second-degree and third-degree strains have more tearing and pain. Usually, recovery from muscle strain takes 1???2 weeks. Complete healing normally takes 5???6 weeks. What are the causes? This condition is caused when a sudden, violent force is placed on a muscle and stretches it too far. This may occur with a fall, while lifting, or during sports. What increases the risk? This condition is more likely to develop in athletes and people who are physically active. What are the signs or symptoms? Symptoms of this condition include: ? Pain. ? Tenderness. ? Bruising. ? Swelling. ? Trouble using the muscle. How is this diagnosed? This condition is diagnosed based on a physical exam and your medical history. Tests may also be done, including an X-ray, ultrasound, or MRI. How is this treated? This condition is initially treated with GOODEN therapy. This therapy involves: ? Protecting the muscle from being injured again. ? Resting the injured muscle. ? Icing the injured muscle. ? Applying pressure (compression) to the injured muscle. This may be done with a splint or elastic bandage. ? Raising (elevating) the injured muscle. Your health care provider may also recommend medicine for pain. Follow these instructions at home: If you have a removable splint: ? Wear the splint as told by your health care provider. Remove it only as told by your health care provider. ? Check the skin around the splint every day. Tell your health care provider about any concerns. ? Loosen the splint if your fingers or toes tingle, become numb, or turn cold and blue. ? Keep the splint clean. ? If the splint is not waterproof: ? Do not let it get wet. ? Cover it with a watertight covering when you take a bath or a shower. Managing pain, stiffness, and swelling ? If directed, put ice on the injured area. To do this: ? If you have a removable splint, remove it as told by your health care provider. ? Put ice in a plastic bag. ? Place a towel between your skin and the bag. ? Leave the ice on for 20 minutes, 2???3 times a day. ? Remove the ice if your skin turns bright red. This is very important. If you cannot feel pain, heat, or cold, you have a greater risk of damage to the area. ? Move your fingers or toes often to reduce stiffness and swelling. ? Raise (elevate) the injured area above the level of your heart while you are sitting or lying down. ? Wear an elastic bandage as told by your health care provider. Make sure that it is not too tight. General instructions ? Take hdgu-aws-saplsrz and prescription medicines only as told by your health care provider. Treatment may include muscle relaxants or medicines for pain and inflammation that are taken by mouth or applied to the skin. ? Restrict your activity and rest the injured muscle as told by your health care provider. Gentle movements may be allowed. ? If physical therapy was prescribed, do exercises as told by your health care provider. ? Do not put pressure on any part of the splint until it is fully hardened. This may take several hours. ? Do not use any products that contain nicotine or tobacco. These products include cigarettes, chewing tobacco, and vaping devices, such as e-cigarettes. If you need help quitting, ask your health careprovider. ? Ask your health care provider when it is safe to drive if you have a splint. ? Keep all follow-up visits. This is important. How is this prevented? Warm up before exercising. This helps to prevent future muscle strains. Contact a health care provider if: ? You have more pain or swelling in the injured area. Get help right away if: ? You have numbness or tingling in the injured area. ? You lose a lot of strength in the injured area. Summary ? A muscle strain is an injury that occurs when a muscle is stretched beyond its normal length. ? This condition is caused when a sudden, violent force is placed on a muscle and stretches it too far. ? This condition is initially treated with GOODEN therapy, which involves protecting, resting, icing, compressing, and elevating. ? Gentle movements may be allowed. If physical therapy was prescribed, do exercises as told by your health care provider. This information is not intended to replace advice given to you by your health care provider. Make sure you discuss any questions you have with your health care provider. Document Revised: 09/26/2021 Document Reviewed: 09/26/2021 [employer] Patient Education ?? 2022 [employer] Patient/Support Merchandiser Signature Patient Name:LEONOR RAMIREZ I have received this information and my questions have been answered. Patient/Support Merchandiser Name: Patient/Support Merchandiser Signature: Relationship to Patient: Witness Name/Signature: Date: Electronically Signed on: 01/27/2023 10:04 EDTSigned by: Patient Care team information Care Team Personnel Name: Yolanda Guevara Position: Nurse Member Role: ED Nurse Name: Leonora Mancera MD Position: Physician Member Role: ED Physician Address: Address: [address] [place] [address] Care Team Related Persons Name: LEONORA RAMIREZ Address: Home
--- OUTSIDE RECORDS SUMMARY | 2023-08-22 12:38 | XMS_ITS | Continuity of Care Document ---
Author Name Unknown Organization [facility] Address [address] [place] [address] Encounter LTTL_AL FIN NBR [id number] Date(s): 10/01/22 - 10/01/[address] [id number] Encounter Diagnosis Pelvic pain(Discharge Diagnosis) - 10/01/22 Discharge Disposition: Home f/u Internal Provider Attending Physician: Temo Hopkins MD Admitting Physician: Temo Hopkins MD Allergies, Adverse Reactions, Alerts Substance Reaction Severity Status Xanax Mild Active Valium Moderate Active Clopine Moderate Active Assessment and Plan Future Appointments Future Scheduled Tests Radiology* US Pelvic Complete 10/02/22 Medications acetaZOLAMIDE 250 mg oral tablet TAKE [...] pain, # 15 tab, 0 Refill(s), Pharmacy: [id number], 167.64,cm, 09/29/22 7:16:00 EST, [...] pain, # 12 tab, 0 Refill(s), Pharmacy: [id number], 167, cm, 10/01/22 10:20:00 [...] List Condition Confirmation Course Effective Dates Status Health [facility] Informant Alcohol use disorder Confirmed Active Results Laboratory List Name Date .Morphology (LTTL) 10/01/22 CBC w/ Diff 10/01/22 Comprehensive Metabolic Panel (CMP) 10/01 Lipase Level 10/01/22 Urinalysis with Microscopic if Indicated 10/01/22 Automated Diff 10/01/22 Most recent to oldest [Reference Range]: 1 WBC [4.8-10.8 K/mcL] 5.2 K/mcL (10/01/22 10:43 AM) RBC [4.20-5.40 Million/mcL] 3.89 Million /mcL *LOW* (10/01/22 10:43 AM) Neutro Auto [42.2-75.2 %] 65.7 % (10/01/22 10:43 AM) Lymph Auto [20.5-51.1 %] 22.7 % (10/01/22 10:43 AM) [place] Auto [1.7-9.3 %] 7.9 % (10/01/22 10:43 AM) Basophil Auto [0.0-0.8 %] 0.8 % (10/01/22 10:43 AM) BUN [8-26 mg/dL] 18 mg/dL (10/01/22 10:43 AM) UA Color [Yellow] Yellow (10/01/22 10:32 AM) Glucose Level [74-106 mg/dL] 99 mg/dL (10/01/22 10:43 AM) Potassium Level [3.5-5.1 mmol/L] 3.8 mmo l/L (10/01/22 10:43 AM) Baso Absolute [0.0-0.2 K/mcL] 0.0 K/mcL (10/01/22 10:43 AM) MCV [81.0-99.0 fL] 75.1 fL *LOW* (10/01/22 10:43 AM) UA Urobilinogen [0.2] 1.0 *ABN* (10/01/22 10:32 AM) RBC Morph [Normal] Abnormal *ABN* (10/01/22 10:43 AM) UA Bili [Negative] Negative (10/01/22 10:32 AM) UA Ketones [Negative] Negative (10/01/22 10:32 AM) AST [15-41 IntlUnit/L] 41 IntlUnit/L (10/01/22 10:43 AM) ALT [14-54 IntlUnit/L] 29 IntlUnit/L (10/01/22 10:43 AM) MCHC [32.0-36.0 g/dL] 27.4 g/dL *LOW* (10/01/22 10:43 AM) Osmolality [275-295 mOsm/kg] 268 mOsm/kg *LOW* (10/01/22 10:43 AM) Sodium Level [134-143 mmol/L] 133 mmol/L *LOW* (10/01/22 10:43 AM) UA Leuk Est [Negative] Negative (10/01/22 10:32 AM) Lymph Absolute [1.2-3.4 K/mcL] 1.2 K/mcL (10/01/22 10:43 AM) UA Nitrite [Negative] Negative (10/01/22 10:32 AM) UA Glucose [Negative] Negative (10/01/22 10:32 AM) Hct [37.0-47.0 %] 29.2 % *LOW* (10/01/22 10:43 AM) Microcyte 3+ *ABN* (10/01/22 10:43 AM) Lipase Level [18-51 unit/L] 33 unit/L (10/01/22 10:43 AM) Hypochromia 3+ *ABN* (10/01/22 10:43 AM) Calcium Level [8.9-10.3 mg/dL] 8.2 mg/dL *LOW* (10/01/22 10:43 AM) [place] Absolute [0.1-0.6 K/mcL] 0.4 K/mcL (10/01/22 10:43 AM) Albumin Level [3.5-5.0 g/dL] 3.4 g/dL *LOW* (10/01/22 10:43 AM) Protein Total [6.5-8.1 g/dL] 6.9 g/dL (10/01/22 10:43 AM) UA Protein [Negative] Negative (10/01/22 10:32 AM) MCH [27.0-31.0 pg] 20.6 pg *LOW* (10/01/22 10:43 AM) Neutro Absolute [1.4-6.5 K/mcL] 3.4 K/mc L (10/01/22 10:43 AM) Bilirubin Total [0.2-1.2 mg/dL] 0.5 mg/d L (10/01/22 10:43 AM) Hgb [12.0-16.0 g/dL] 8.0 g/dL *LOW* (10/01/22 10:43 AM) Alk Phos [38-130 IntlUnit/L] 74 IntlUnit /L (10/01/22 10:43 AM) UA Blood [Negative] Negative (10/01/22 10:32 AM) MPV [7.4-10.4 fL] 9.5 fL (10/01/22 10:43 AM) UA Spec Grav 1.020 *NA* (10/01/22 10:32 AM) Platelets [130-400 K/mcL] 211 K/mcL (10/01/22 10:43 AM) CO2 [22-32 mmol/L] 22 mmol/L (10/01/22 10:43 AM) Eos Absolute [0.0-0.2 K/mcL] 0.1 K/mcL (10/01/22 10:43 AM) Macrocyte 1+ *ABN* (10/01/22 10:43 AM) UA pH 7.50 *NA* (10/01/22 10:32 AM) UA Appear [Clear] Clear (10/01/22 10:32 AM) Chloride Level [98-111 mmol/L] 104 mmol/ L (10/01/22 10:43 AM) RDW-CV [11.5-14.5 %] 21.7 % *HI* (10/01/22 10:43 AM) A/G Ratio 1.0 *NA* (10/01/22 10:43 AM) BUN/Creat Ratio [8.0-20.0] 26.9 *HI* (10/01/22 10:43 AM) Globulin 3.5 *NA* (10/01/22 10:43 AM) Stomatocyte 2+ *ABN* (10/01/22 10:43 AM) Imm Gran Absolute 0.03 *NA* (10/01/22 10:43 AM) Imm Gran Auto [0.0-0.5 %] 0.6 % *HI* (10/01/22 10:43 AM) NRBC Auto 0 *NA* (10/01/22 10:43 AM) NRBC Absolute 0 *NA* (10/01/22 10:43 AM) Urine Srce Clean Catch (10/01/22 10:32 AM) Plt Large Few *ABN* (10/01/22 10:43 AM) Anisocyte 3+ (10/01/22 10:43 AM) Creatinine Level [0.44-1.00 mg/dL] 0.67 mg/dL (10/01/22 10:43 AM) Plt Estimation Normal (10/01/22 10:43 AM) Anion Gap [3.0-12.0] 7.0 (10/01/22 10:43 AM) Eos, Auto [0.00-3.00 %] 2.30 % (10/01/22 10:43 AM) eGFR CKD-EPI [>=60 mL/min/1.73 m2] 113 m L/min/1.73 m2 (10/01/22 10:43 AM) Vital Signs Most recent to oldest [Reference Range]: 1 2 Temperature Temporal Artery [36-38 Deg C ] 36.7 Deg C (10/01/22 10:08 AM) Peripheral Pulse Rate [60-100 bpm] 79 bp m (10/01/22 12:09 PM) 99 bpm (10/01/22 10:08 AM) Respiratory Rate [12-24 br/min] 14 br/mi n (10/01/22 12:09 PM) 16 br/min (10/01/22 10:08 AM) Blood Pressure [90-140/60-90 mmHg] 107/6 1mmHg (10/01/22 12:09 PM) 127/79mmHg (10/01/22 10:08 AM) Weight Dosing 77.11 kg (10/01/22 10:20 AM) Weight Estimated 77.11 kg (10/01/22 10:08 AM) Height/Length Dosing 167.000 cm (10/01/22 10:20 AM) Height/Length Estimated 167.000 cm (10/01/22 10:08 AM) Social History Social History Type Response Tobacco Former tobacco user Tobacco Use:. Sex Hospital Discharge Instructions Patient Education 10/01/2022 11:54:36 Pelvic Pain, Female Pelvic Pain, Female Pelvic pain is pain in your lower abdomen, below your belly button and between your hips. The pain may start suddenly (be acute), keep coming back (be recurring), or last a long time (become chronic). Pelvic pain that lasts longer than 6 months is considered chronic. Pelvic pain may affect your: ??? Reproductive organs. ??? Urinary system. ??? Digestive tract. ??? Musculoskeletal system. There are many potential causes of pelvic pain. Sometimes, the pain can be a result of digestive orurinary conditions, strained muscles or ligaments, or reproductive conditions. Sometimes the cause of pelvic pain is not known. Follow these instructions at home: ??? Take qbld-lat-anwrmck and prescription medicines only as told by your health care provider. ??? Rest as told by your health care provider. ??? Do not have sex if it hurts. ??? Keep a journal of your pelvic pain. Write down: ??? When the pain started. ??? Where the pain is located. ??? What seems to make the pain better or worse, such as food or your period (menstrual cycle). ??? Any symptoms you have along with the pain. ??? Keep all follow-up visits as told by your health care provider. This is important. Contact a health care provider if: ??? Medicine does not help your pain. ??? Your pain comes back. ??? You have new symptoms. ??? You have abnormal vaginal discharge or bleeding, including bleeding after menopause. ??? You have a fever or chills. ??? You are constipated. ??? You have blood in your urine or stool. ??? You have foul-smelling urine. ??? You feel weak or light-headed. Get help right away if: ??? You have sudden severe pain. ??? Your pain gets steadily worse. ??? You have severe pain along with fever, nausea, vomiting, or excessive sweating. ??? You lose consciousness. Summary ??? Pelvic pain is pain in your lower abdomen, below your belly button and between your hips. ??? There are many potential causes of pelvic pain. ??? Keep a journal of your pelvic pain. This information is not intended to replace advice given to you by your health care provider. Make sure you discuss any questions you have with your health care provider. Document Revised: 12/25/2018 Document Reviewed: 12/25/2018 [employer] Patient Education ?? 2021 [employer] Physician Emergency department Note * Temo Hopkins MD: PERFORM Event Display: ED Note Physician Authored Date: [id number] IRASEMA RAMIREZRRFior Gonzáles :1980 Age:41 years Sex:Female Visit Date:10/01/2022 Basic Information Time Seen: Temo Hopkins MD / 10/01/2022 10:10 Chief Complaint Seen yesterday and diagnosed with RIGHT sided ovarian cyst via CT scan. Here today due to increasedpain. Script for flexeril given which she reports is not helping. Pain worse with eating. History Of Present Illness: Patient was seen here yesterday morning diagnosed with right ovarian cyst??after a CAT scan was performed.?? She was discharged on Flexeril but returns today saying the pain is increasing??and more wavelike. ??She denies any significant nausea??but is slightly episodically nauseous. ??She denies dysuria hematuria vaginal bleeding discharge trauma or fever??or chest pain. ??States the pain seems to be??more lower??than it was yesterday.?? She had some diarrhea today??but that is after taking MiraLAX for constipation that??has been happening over the past several days. Review of Systems: Review of systems negative other than that stated above Physical Exam Vitals & Measurements T:??36.7?C ??(Temporal Artery)?? HR:??79??(Peripheral)?? RR:??14?? BP:??107/61?? SpO2:??99%?? HT:??167.000??cm?? WT:??77.11??kg??(Estimated)?? Pain Score:??5?? O2 Therapy:??Room air?? General: Alert and oriented, well nourished, no acute distress. Eye: PERRL, EOMI, normal conjunctiva. HENT: Normocephalic,??normal hearing, moist oral mucosa, no scleral icterus, . Neck: Supple, non-tender, no carotid bruits, no JVD, no lymphadenopathy. No rigidity Lungs: Clear to auscultation and percussion, non-labored respiration. Heart: Normal rate, regular rhythm, no murmur, gallop or edema. Abdomen: Soft, rebound or peritoneal signs, non-distended, normal bowel sounds, no masses. Musculoskeletal: Normal range of motion and strength, no tenderness or swelling. Skin: Skin is warm, dry and appropriate for ethnicity, no rashes or lesions. Neurologic: Awake, alert and oriented X4, CN II-XII intact. Psychiatric: Cooperative, appropriate mood and affect.?? There is tenderness in the right lower quadrant no Procedure No Qualifying Data Reexamination/Reevaluation Blood work shows no elevated white count or obvious change from the labs that were done??within thepast 24 hours. ??I felt that??CAT scan would not be??in her best interest as radiology states the appendix is visualized and normal??and there is no other surgical abnormalities.?? Ultrasound is not available??as it is Sunday.?? My concern??would be??possible torsion??although??the cystic lesion that was??read by radiology is only 2.9??x 2.6 cm.?? I spoke with Dr. Mujica who??feels that??the increased pain is most likely??due to??the cyst rupturing. ??He does not feel the??size of the cyst??gives??concern for??ovarian torsion.?? Patient was given??morphine followed by Dilaudid and the Dilaudiddid help with the pain. ??Toradol did not help. ??She is prescribed??Dilaudid. ??She??will have the??ultrasound performed in the morning??as it will be Sunday. ??Dr. Mujica had recommended that she calls??his office tomorrow as well. ??She was given this information??and will return to the ED soonerfor increased problems Assessment/Plan 1.??Pelvic pain??R10.2 Orders: HYDROmorphone 2 mg oral tablet, 2 mg = 1 tab, Oral, every 4 hr, PRN as needed for pain, # 12 tab, 0Refill(s), Pharmacy: [id number], 167, cm, 10/01/22 10:20:00 EDT, Height/Length Dosing, 77.11, kg, 10/01/22 10:20:00 EDT, Weight Dosing US Pelvic Complete, *Est. 10/02/22, Routine, Reason: right sided pain, Transport Mode: Ambulatory Patient Education Pelvic Pain, Female Medication Reconciliation New Prescription HYDROmorphone (HYDROmorphone 2 mg oral tablet)1 tab Oral (given by mouth) every 4 hours as needed as needed for pain. Refills: 0. ?? Unchanged acetaZOLAMIDE (acetaZOLAMIDE 250 mg oral tablet)TAKE 1 TABLET BY MOUTH EVERY DAY. ?? ARIPiprazole (ARIPiprazole 5 mg oral tablet)1 tab Oral (given by mouth) every day. TAKE 1 TABLET BYMOUTH EVERY DAY. ?? cyclobenzaprine (cyclobenzaprine 10 mg oral tablet)1 tab Oral (given by mouth) 3 times a day as needed pain. Refills: 0. ?? cyclobenzaprine (cyclobenzaprine 10 mg oral tablet)1 tab Oral (given by mouth) 3 times a day as needed pain. Refills: 0. ?? gabapentin (gabapentin 600 mg oral tablet)1 tab Oral (given by mouth) 3 times a day. TAKE 2 TABLETS(1,200 MG) BY MOUTH 3 TIMES PER DAY. ?? hydrOXYzine (hydrOXYzine pamoate 50 mg oral capsule)TAKE 2 CAPSULES BY MOUTH TWICE A DAY NEEDED. ?? LORazepam (LORazepam 1 mg oral tablet)PLEASE SEE ATTACHED FOR DETAILED DIRECTIONS. ?? QUEtiapine (QUEtiapine 200 mg oral tablet)1 tab Oral (given by mouth) every day. TAKE 1 TABLET BY MOUTH AT BEDTIME. Problem List/Past Medical History Ongoing Alcohol use disorder Historical No qualifying data Medication Administration Given Sodium Chloride 0.9%, 1000 mL, IV Bolus !-Zofran, 4 mg, IV Push HYDROmorphone, 1 mg, IV Push HYDROmorphone, 1 mg, IV Push morphine, 4 mg, IV traMADol, 50 mg, Oral Allergies Clopine Valium Xanax Social History Electronic Cigarette/Vaping Electronic Cigarette Use: Use, within last 90 days. Type: Nicotine infused. Use per Day: 26-50 Inhales/day. Tobacco Former tobacco user Tobacco Use:. Lab Results CBC and Differential?? LATEST RESULTS?? HISTORICAL RESULTS?? WBC?? 10/01/22 10:43?? 5.2?? 09/29/22?? 4.4 ??Low?? RBC?? 10/01/22 10:43?? 3.89 ??Low?? 09/29/22?? 4.05 ??Low?? Hgb?? 10/01/22 10:43?? 8.0 ??Low?? 09/29/22?? 8.1 ??Low?? Hct?? 10/01/22 10:43?? 29.2 ??Low?? 09/29/22?? 30.4 ??Low?? MCV?? 10/01/22 10:43?? 75.1 ??Low?? 09/29/22?? 75.1 ??Low?? MCH?? 10/01/22 10:43?? 20.6 ??Low?? 09/29/22?? 20.0 ??Low?? MCHC?? 10/01/22 10:43?? 27.4 ??Low?? 09/29/22?? 26.6 ??Low?? RDW-CV?? 10/01/22 10:43?? 21.7 ??High?? 09/29/22?? 21.5 ??High?? Platelets?? 10/01/22 10:43?? 211?? 09/29/22?? 203?? MPV?? 10/01/22 10:43?? 9.5?? 09/29/22?? 9.7?? Neutro Auto?? 10/01/22 10:43?? 65.7?? 09/29/22?? 66.3?? Lymph Auto?? 10/01/22 10:43?? 22.7?? 09/29/22?? 19.9 ??Low?? [place] Auto?? 10/01/22 10:43?? 7.9?? 09/29/22?? 8.4?? Eos, Auto?? 10/01/22 10:43?? 2.30?? 09/29/22?? 3.80 ??High?? Basophil Auto?? 10/01/22 10:43?? 0.8?? 09/29/22?? 1.1 ??High?? Imm Gran Auto?? 10/01/22 10:43?? 0.6 ??High?? 09/29/22?? 0.5?? NRBC Auto?? 10/01/22 10:43?? 0? Neutro Absolute?? 10/01/22 10:43?? 3.4?? 09/29/22?? 2.9?? Lymph Absolute?? 10/01/22 10:43?? 1.2?? 09/29/22?? 0.9 ??Low?? [place] Absolute?? 10/01/22 10:43?? 0.4?? 09/29/22?? 0.4?? Eos Absolute?? 10/01/22 10:43?? 0.1?? 09/29/22?? 0.2?? Baso Absolute?? 10/01/22 10:43?? 0.0?? 09/29/22?? 0.0?? Imm Gran Absolute?? 10/01/22 10:43?? 0.03?? 09/29/22?? 0.02?? NRBC Absolute?? 10/01/22 10:43?? 0? RBC Morph?? 10/01/22 10:43?? Abnormal Abnormal?? 09/29/22?? Abnormal Abnormal?? Anisocyte?? 10/01/22 10:43?? 3+?? 09/29/22?? 3+?? Hypochromia?? 10/01/22 10:43?? 3+ Abnormal?? 09/29/22?? 3+ Abnormal?? Microcyte?? 10/01/22 10:43?? 3+ Abnormal?? 09/29/22?? 2+ Abnormal?? Macrocyte?? 10/01/22 10:43?? 1+ Abnormal? Plt Estimation?? 10/01/22 10:43?? Normal?? 09/29/22?? Normal?? Plt Large?? 10/01/22 10:43?? Few Abnormal? Stomatocyte?? 10/01/22 10:43?? 2+ Abnormal?? 09/29/22?? 2+ Abnormal? Routine Chemistry?? LATEST RESULTS?? HISTORICAL RESULTS?? Sodium Level?? 10/01/22 10:43?? 133 ??Low?? 09/29/22?? 134?? Potassium Level?? 10/01/22 10:43?? 3.8?? 09/29/22?? 3.8?? Chloride Level?? 10/01/22 10:43?? 104?? 09/29/22?? 105?? CO2?? 10/01/22 10:43?? 22?? 09/29/22?? 22?? Alk Phos?? 10/01/22 10:43?? 74?? 09/29/22?? 76?? AST?? 10/01/22 10:43?? 41?? 09/29/22?? 29?? ALT?? 10/01/22 10:43?? 29?? 09/29/22?? 20?? BUN?? 10/01/22 10:43?? 18?? 09/29/22?? 17?? Glucose Level?? 10/01/22 10:43?? 99?? 09/29/22?? 96?? Creatinine Level?? 10/01/22 10:43?? 0.67?? 09/29/22?? 0.70?? BUN/Creat Ratio?? 10/01/22 10:43?? 26.9 ??High?? 09/29/22?? 24.3 ??High?? Calcium Level?? 10/01/22 10:43?? 8.2 ??Low?? 09/29/22?? 8.4 ??Low?? Protein Total?? 10/01/22 10:43?? 6.9?? 09/29/22?? 6.7?? Albumin Level?? 10/01/22 10:43?? 3.4 ??Low?? 09/29/22?? 3.3 ??Low?? Globulin?? 10/01/22 10:43?? 3.5?? 09/29/22?? 3.4?? A/G Ratio?? 10/01/22 10:43?? 1.0?? 09/29/22?? 1.0?? Bilirubin Total?? 10/01/22 10:43?? 0.5?? 09/29/22?? 0.4?? Anion Gap?? 10/01/22 10:43?? 7.0?? 09/29/22?? 7.0?? Lipase Level?? 10/01/22 10:43?? 33?? 09/29/22?? 30?? Osmolality?? 10/01/22 10:43?? 268 ??Low?? 09/29/22?? 270 ??Low?? eGFR CKD-EPI?? 10/01/22 10:43?? 113?? 09/29/22?? 112? UA Macroscopic?? LATEST RESULTS?? HISTORICAL RESULTS?? Urine Srce?? 10/01/22 10:32?? Clean Catch? UA Color?? 10/01/22 10:32?? Yellow?? 09/29/22?? Yellow?? UA Appear?? 10/01/22 10:32?? Clear?? 09/29/22?? Slightly Cloudy Abnormal?? UA Glucose?? 10/01/22 10:32?? Negative?? 09/29/22?? Negative?? UA Bili?? 10/01/22 10:32?? Negative?? 09/29/22?? Negative?? UA Ketones?? 10/01/22 10:32?? Negative?? 09/29/22?? Trace Abnormal?? UA Spec Grav?? 10/01/22 10:32?? 1.020?? 09/29/22?? 1.015?? UA Blood?? 10/01/22 10:32?? Negative?? 09/29/22?? Negative?? UA pH?? 10/01/22 10:32?? 7.50?? 09/29/22?? 7.50?? UA Protein?? 10/01/22 10:32?? Negative?? 09/29/22?? Negative?? UA Urobilinogen?? 10/01/22 10:32?? 1.0 Abnormal?? 09/29/22?? 2.0 Abnormal?? UA Nitrite?? 10/01/22 10:32?? Negative?? 09/29/22?? Negative?? UA Leuk Est?? 10/01/22 10:32?? Negative?? 09/29/22?? Trace Abnormal? Electronically Signed on 10/01/22 07:03 PM Temo Hopkins MD Emergency department Discharge instructions * Temo Hopkins MD: PERFORM Event Display: ED Discharge Information Authored Date: [id number] LEONOR RAMIREZ :1980 Age:41 years Sex:Female Visit Date:10/01/2022 Discharge Instructions We would like to thank you for allowing us to assist you with your healthcare needs. The following includes patient education materials and information regarding your injury/illness. Diagnosis from Today's Visit Pelvic pain Discharge Vitals Temperature??(Temporal Artery) 98.1 ??F (36.7 ??C) Heart Rate??(Peripheral) 79 Respiratory Rate?? 14 Blood Pressure?? 107/61?? Height?? 65.75 in (167.000 cm) Weight??(Estimated) 170.03 lb (77.11 kg) Allergies Clopine Valium Xanax What to Do Next Instructions from Your Care Team Dilaudid as prescribed for pain. ??Return tomorrow for??ultrasound. 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 ??Return to ED for worsening symptoms Future Orders US Pelvic Complete, *Est. 10/02/22, Routine, Reason: right sided pain, Transport Mode: Ambulatory You were treated today on an emergency [...] Emergency Department. Medications What How Much When Why Instructions Next Dose New HYDROmorphone (HYDROmorphone 2 mg oral tablet) 1 tab Oral (given by mouth) Every 4 hours as needed for as needed for pain Pickup at [id number] Unchanged acetaZOLAMIDE (acetaZOLAMIDE 250 mg oral tablet) TAKE 1 TABLET BY MOUTH EVERY DAY ?? Unchanged ARIPiprazole (ARIPiprazole 5 mg oral tablet) 1 tab Oral (given by mouth) Every day TAKE 1 TABLET BY MOUTH EVERY DAY ?? Unchanged cyclobenzaprine (cyclobenzaprine 10 mg oral tablet) 1 tab Oral (given by mouth) 3 times a day as needed for pain Microcytic hypochromic anemia Alcohol use disorder Right ovarian cyst Unchanged cyclobenzaprine (cyclobenzaprine 10 mg oral tablet) 1 tab Oral (given by mouth) 3 times a day as needed for pain Microcytic hypochromic anemia Alcohol use disorder Right ovarian cyst Unchanged gabapentin (gabapentin 600 mg oral tablet) 1 tab Oral (given by mouth) 3 times a day TAKE 2 TABLETS (1,200 MG) BY MOUTH 3 TIMES PER DAY ?? Unchanged hydrOXYzine (hydrOXYzine pamoate 50 mg oral capsule) TAKE 2 CAPSULES BY MOUTH TWICE A DAY NEEDED ?? Unchanged LORazepam (LORazepam 1 mg oral tablet) PLEASE SEE ATTACHED FOR DETAILED DIRECTIONS ?? Unchanged QUEtiapine (QUEtiapine 200 mg oral tablet) 1 tab Oral (given by mouth) Every day TAKE 1 TABLET BY MOUTH AT BEDTIME ?? Pharmacy Information [id number]: [address] [place], [place] [id number] [phone] Education Materials Pelvic Pain, Female Pelvic pain is pain in your lower abdomen, below your belly button and between your hips. The pain may start suddenly (be acute), keep coming back (be recurring), or last a long time (become chronic). Pelvic pain that lasts longer than 6 months is considered chronic. Pelvic pain may affect your: ? Reproductive organs. ? Urinary system. ? Digestive tract. ? Musculoskeletal system. There are many potential causes of pelvic pain. Sometimes, the pain can be a result of digestive orurinary conditions, strained muscles or ligaments, or reproductive conditions. Sometimes the cause of pelvic pain is not known. Follow these instructions at home: ? Take thuk-jwn-wnoejvk and prescription medicines only as told by your health care provider. ? Rest as told by your health care provider. ? Do not have sex if it hurts. ? Keep a journal of your pelvic pain. Write down: ? When the pain started. ? Where the pain is located. ? What seems to make the pain better or worse, such as food or your period (menstrual cycle). ? Any symptoms you have along with the pain. ? Keep all follow-up visits as told by your health care provider. This is important. Contact a health care provider if: ? Medicine does not help your pain. ? Your pain comes back. ? You have new symptoms. ? You have abnormal vaginal discharge or bleeding, including bleeding after menopause. ? You have a fever or chills. ? You are constipated. ? You have blood in your urine or stool. ? You have foul-smelling urine. ? You feel weak or light-headed. Get help right away if: ? You have sudden severe pain. ? Your pain gets steadily worse. ? You have severe pain along with fever, nausea, vomiting, or excessive sweating. ? You lose consciousness. Summary ? Pelvic pain is pain in your lower abdomen, below your belly button and between your hips. ? There are many potential causes of pelvic pain. ? Keep a journal of your pelvic pain. This information is not intended to replace advice given to you by your health care provider. Make sure you discuss any questions you have with your health care provider. Document Revised: 12/25/2018 Document Reviewed: 12/25/2018 [employer] Patient Education ?? 2021 [employer]. Tests Performed Medications and Immunizations Administered Given Sodium Chloride 0.9%, 1000 mL, IV Bolus !-Zofran, 4 mg, IV Push HYDROmorphone, 1 mg, IV Push morphine, 4 mg, IV traMADol, 50 mg, Oral Lab Test Name Test Result Date/Time WBC 5.2 K/mcL 10/01/2022 10:43 EDT RBC 3.89 Million/mcL 10/01/2022 10:43 EDT Hgb 8.0 g/dL 10/01/2022 10:43 EDT Hct 29.2 % 10/01/2022 10:43 EDT MCV 75.1 fL 10/01/2022 10:43 EDT MCH 20.6 pg 10/01/2022 10:43 EDT MCHC 27.4 g/dL 10/01/2022 10:43 EDT RDW-CV 21.7 % 10/01/2022 10:43 EDT Platelets 211 K/mcL 10/01/2022 10:43 EDT MPV 9.5 fL 10/01/2022 10:43 EDT Neutro Auto 65.7 % 10/01/2022 10:43 EDT Lymph Auto 22.7 % 10/01/2022 10:43 EDT [place] Auto 7.9 % 10/01/2022 10:43 EDT Eos, Auto 2.30 % 10/01/2022 10:43 EDT Basophil Auto 0.8 % 10/01/2022 10:43 EDT Imm Gran Auto 0.6 % 10/01/2022 10:43 EDT NRBC Auto 0 10/01/2022 10:43 EDT Neutro Absolute 3.4 K/mcL 10/01/2022 10:43 EDT Lymph Absolute 1.2 K/mcL 10/01/2022 10:43 EDT [place] Absolute 0.4 K/mcL 10/01/2022 10:43 EDT Eos Absolute 0.1 K/mcL 10/01/2022 10:43 EDT Baso Absolute 0.0 K/mcL 10/01/2022 10:43 EDT Imm Gran Absolute 0.03 10/01/2022 10:43 EDT NRBC Absolute 0 10/01/2022 10:43 EDT RBC Morph Abnormal 10/01/2022 10:43 EDT Anisocyte 3+ 10/01/2022 10:43 EDT Hypochromia 3+ 10/01/2022 10:43 EDT Microcyte 3+ 10/01/2022 10:43 EDT Macrocyte 1+ 10/01/2022 10:43 EDT Plt Estimation Normal 10/01/2022 10:43 EDT Plt Large Few 10/01/2022 10:43 EDT Stomatocyte 2+ 10/01/2022 10:43 EDT Sodium Level 133 mmol/L 10/01/2022 10:43 EDT Potassium Level 3.8 mmol/L 10/01/2022 10:43 EDT Chloride Level 104 mmol/L 10/01/2022 10:43 EDT CO2 22 mmol/L 10/01/2022 10:43 EDT Alk Phos 74 IntlUnit/L 10/01/2022 10:43 EDT AST 41 IntlUnit/L 10/01/2022 10:43 EDT ALT 29 IntlUnit/L 10/01/2022 10:43 EDT BUN 18 mg/dL 10/01/2022 10:43 EDT Glucose Level 99 mg/dL 10/01/2022 10:43 EDT Creatinine Level 0.67 mg/dL 10/01/2022 10:43 EDT BUN/Creat Ratio 26.9 10/01/2022 10:43 EDT Calcium Level 8.2 mg/dL 10/01/2022 10:43 EDT Protein Total 6.9 g/dL 10/01/2022 10:43 EDT Albumin Level 3.4 g/dL 10/01/2022 10:43 EDT Globulin 3.5 10/01/2022 10:43 EDT A/G Ratio 1.0 10/01/2022 10:43 EDT Bilirubin Total 0.5 mg/dL 10/01/2022 10:43 EDT Anion Gap 7.0 10/01/2022 10:43 EDT Lipase Level 33 unit/L 10/01/2022 10:43 EDT Osmolality 268 mOsm/kg 10/01/2022 10:43 EDT eGFR CKD-EPI 113 mL/min/1.73 m2 10/01/2022 10:43 EDT Urine Srce Clean Catch 10/01/2022 10:32 EDT UA Color YELLOW. 10/01/2022 10:32 EDT UA Appear CLEAR. 10/01/2022 10:32 EDT UA Glucose NEGATIVE 10/01/2022 10:32 EDT UA Bili NEGATIVE 10/01/2022 10:32 EDT UA Ketones NEGATIVE 10/01/2022 10:32 EDT UA Spec Grav 1.020 10/01/2022 10:32 EDT UA Blood NEGATIVE 10/01/2022 10:32 EDT UA pH 7.50 10/01/2022 10:32 EDT UA Protein NEGATIVE 10/01/2022 10:32 EDT UA Urobilinogen 1.0 10/01/2022 10:32 EDT UA Nitrite NEGATIVE 10/01/2022 10:32 EDT UA Leuk Est NEGATIVE 10/01/2022 10:32 EDT Patient/Policy Adviser Signature Patient Name:JAMES LEONOR L I have received this information and my questions have been answered. Patient/Policy Adviser Name: Patient/Policy Adviser Signature: Relationship to Patient: Witness Name/Signature: Date: Electronically Signed on: 10/01/2022 12:55 EDTSigned by:REGLA Patient Care team information Care Team Personnel Name: Temo Hopkins MD Position: Physician Member Role: Attending Physician Address: Address: [address] [place] [phone] Name: Inocencio Phoenix Position: Nurse Member Role: Registered Nurse Care Team Related Persons Name: LEONORA RAMIREZ Address: Home
--- OUTSIDE RECORDS SUMMARY | 2023-08-22 12:38 | XMS_ITS | Continuity of Care Document ---
Author Name Unknown Organization [facility] Address [address] [place] [address] Encounter LTTL_PA FIN NBR [id number] Date(s): 09/29/22 - 09/29/[address] [id number] Encounter Diagnosis Microcytic hypochromic anemia(Discharge Diagnosis) - 09/29/22 Alcohol use disorder(Discharge Diagnosis) - 09/29/22 Right ovarian cyst(Discharge Diagnosis) - 09/29/22 Ovarian cyst(Discharge Diagnosis) - 09/29/22 Anemia(Discharge Diagnosis) - 09/29/22 Discharge Disposition: Home or Self Care Attending Physician: Channing Jimenes DO Admitting Physician: Channing Jimenes DO Allergies, Adverse Reactions, Alerts Substance Reaction Severity Status Xanax Mild Active Valium Moderate Active Clopine Moderate Active Medications acetaZOLAMIDE 250 mg oral tablet TAKE 1 TABLET BY MOUTH EVERY DAY Start Date: 09/29/22 Status: Ordered ARIPiprazole 5 mg oral tablet TAKE 1 TABLET BY MOUTH EVERY DAY Start Date: 09/29/22 Status: Ordered cyclobenzaprine 10 mg oral tablet 10 mg = 1 tab, Oral, TID, PRN pain, # 15 tab, 0 Refill(s) Start Date: 09/29/22 Status: Ordered cyclobenzaprine 10 mg oral tablet 10 mg = 1 tab, Oral, TID, PRN pain, # 15 tab, 0 Refill(s), Pharmacy: [id number], 167.64,cm, 09/29/22 7:16:00 EST, Height/Length Dosing, 77.56, kg, 09/29/22 7:16:00 EST, Weight Dosing Start Date: 09/29/22 Status: Ordered gabapentin 600 mg oral tablet TAKE 2 TABLETS (1,200 MG) BY MOUTH 3 TIMES PER DAY Start Date: 09/29/22 Status: Ordered hydrOXYzine pamoate 50 mg oral capsule TAKE 2 CAPSULES BY MOUTH TWICE A DAY NEEDED Start Date: 09/29/22 Status: Ordered LORazepam 1 mg oral tablet PLEASE SEE ATTACHED FOR DETAILED DIRECTIONS Start Date: 09/29/22 Status: Ordered morphine 2 mg = 1 mL, IV Push, Injection, every 20 min for 3 doses, PRN pain, moderate, First Dose: :28:00 EST, Stop Date: Limited # of times, Physician Stop Start Date: 09/29/22 Status: Ordered QUEtiapine 200 mg oral tablet TAKE 1 TABLET BY MOUTH AT BEDTIME Start Date: 09/29/22 Status: Ordered Mental Status 09/29/22 Eye Opening Response [place] Spontaneous ly Best Verbal Response [place] Oriented Best Motor Response [place] Obeys comman ds [place] Coma Score 15 Problem List Condition Confirmation Course Effective Dates Status Health St atus Informant Alcohol use disorder Confirmed Active Results Laboratory List Name Date Urinalysis Microscopic 09/29/22 Urinalysis with Micro if Indicated and C ulture if Indicated 09/29/22 .Morphology (LTTL) 09/29/22 Alcohol Lvl 09/29/22 CBC w/ Diff 09/29/22 Comprehensive Metabolic Panel 09/29/22 Lipase Level 09/29/22 Test Serum Qual 09/29/22 Automated Diff 09/29/22 Most recent to oldest [Reference Range]: 1 WBC [4.8-10.8 K/mcL] 4.4 K/mcL *LOW* (09/29/22 7:36 AM) RBC [4.20-5.40 Million/mcL] 4.05 Million /mcL *LOW* (09/29/22 7:36 AM) Neutro Auto [42.2-75.2 %] 66.3 % (09/29/22 7:36 AM) Lymph Auto [20.5-51.1 %] 19.9 % *LOW* (09/29/22 7:36 AM) [place] Auto [1.7-9.3 %] 8.4 % (09/29/22 7:36 AM) Basophil Auto [0.0-0.8 %] 1.1 % *HI* (09/29/22 7:36 AM) BUN [8-26 mg/dL] 17 mg/dL (09/29/22 7:36 AM) UA Color [Yellow] Yellow (09/29/22 8:49 AM) UA WBC [0-3] 4-6 *ABN* (09/29/22 8:49 AM) Glucose Level [74-106 mg/dL] 96 mg/dL (09/29/22 7:36 AM) Potassium Level [3.5-5.1 mmol/L] 3.8 mmo l/L (09/29/22 7:36 AM) Baso Absolute [0.0-0.2 K/mcL] 0.0 K/mcL (09/29/22 7:36 AM) MCV [81.0-99.0 fL] 75.1 fL *LOW* (09/29/22:36 AM) UA Urobilinogen [0.2] 2.0 *ABN* (09/29/22 8:49 AM) RBC Morph [Normal] Abnormal *ABN* (09/29/22 7:36 AM) UA Bili [Negative] Negative (09/29/22 8:49 AM) UA Ketones [Negative] Trace *ABN* (09/29/22 8:49 AM) AST [15-41 IntlUnit/L] 29 IntlUnit/L (09/29/22 7:36 AM) ALT [14-54 IntlUnit/L] 20 IntlUnit/L (09/29/22 7:36 AM) MCHC [32.0-36.0 g/dL] 26.6 g/dL *LOW* (09/29/22:36 AM) Osmolality [275-295 mOsm/kg] 270 mOsm/kg *LOW* (09/29/22 7:36 AM) Sodium Level [134-143 mmol/L] 134 mmol/L (09/29/22 7:36 AM) UA RBC [0-3] None Seen (09/29/22 8:49 AM) UA Leuk Est [Negative] Trace *ABN* (09/29/22 8:49 AM) Lymph Absolute [1.2-3.4 K/mcL] 0.9 K/mcL *LOW* (09/29/22 7:36 AM) UA Nitrite [Negative] Negative (09/29/22 8:49 AM) UA Glucose [Negative] Negative (09/29/22 8:49 AM) Hct [37.0-47.0 %] 30.4 % *LOW* (09/29/22 7:36 AM) Microcyte 2+ *ABN* (09/29/22 7:36 AM) UA Bacteria [None Seen] 1+ *ABN* (09/29/22 8:49 AM) Lipase Level [18-51 unit/L] 30 unit/L (09/29/22 7:36 AM) Hypochromia 3+ *ABN* (09/29/22 7:36 AM) Calcium Level [8.9-10.3 mg/dL] 8.4 mg/dL *LOW* (09/29/22 7:36 AM) [place] Absolute [0.1-0.6 K/mcL] 0.4 K/mcL (09/29/22 7:36 AM) Albumin Level [3.5-5.0 g/dL] 3.3 g/dL *LOW* (09/29/22 7:36 AM) Protein Total [6.5-8.1 g/dL] 6.7 g/dL (09/29/22 7:36 AM) UA Protein [Negative] Negative (09/29/22 8:49 AM) Poik 2+ *ABN* (09/29/22 7:36 AM) MCH [27.0-31.0 pg] 20.0 pg *LOW* (09/29/22 7:36 AM) Neutro Absolute [1.4-6.5 K/mcL] 2.9 K/mc L (09/29/22 7:36 AM) Bilirubin Total [0.2-1.2 mg/dL] 0.4 mg/d L (09/29/22 7:36 AM) Hgb [12.0-16.0 g/dL] 8.1 g/dL *LOW* (09/29/22 7:36 AM) Alk Phos [38-130 IntlUnit/L] 76 IntlUnit /L (09/29/22 7:36 AM) UA Blood [Negative] Negative (09/29/22 8:49 AM) MPV [7.4-10.4 fL] 9.7 fL (09/29/22 7:36 AM) Ethanol Level [0.00-0.08 g/dL] <0.00 g/d L (09/29/22 7:36 AM) UA Spec Grav 1.015 *NA* (09/29/22 8:49 AM) Polychrom 1+ *ABN* (09/29/22 7:36 AM) Platelets [130-400 K/mcL] 203 K/mcL (09/29/22 7:36 AM) CO2 [22-32 mmol/L] 22 mmol/L (09/29/22 7:36 AM) Eos Absolute [0.0-0.2 K/mcL] 0.2 K/mcL (09/29/22 7:36 AM) UA Squam Epithelial [0-3] 6-10 *ABN* (09/29/22 8:49 AM) UA pH 7.50 *NA* (09/29/22 8:49 AM) UA Appear [Clear] Slightly Cloudy *ABN* (09/29/22 8:49 AM) Chloride Level [98-111 mmol/L] 105 mmol/ L (09/29/22 7:36 AM) RDW-CV [11.5-14.5 %] 21.5 % *HI* (09/29/22 7:36 AM) A/G Ratio 1.0 *NA* (09/29/22 7:36 AM) BUN/Creat Ratio [8.0-20.0] 24.3 *HI* (09/29/22 7:36 AM) Globulin 3.4 *NA* (09/29/22 7:36 AM) Stomatocyte 2+ *ABN* (09/29/22 7:36 AM) hCG Qual Serum [Negative] Negative (09/29/22 7:36 AM) Imm Gran Absolute 0.02 *NA* (09/29/22 7:36 AM) Imm Gran Auto [0.0-0.5 %] 0.5 % (09/29/22 7:36 AM) UA Culture Ind?. [No] No 1 (09/29/22 8:49 AM) UA Amorph [None Seen] Many *ABN* (09/29/22 8:49 AM) Anisocyte 3+ (09/29/22 7:36 AM) Creatinine Level [0.44-1.00 mg/dL] 0.70 mg/dL (09/29/22 7:36 AM) Plt Estimation Normal (09/29/22 7:36 AM) Anion Gap [3.0-12.0] 7.0 (09/29/22 7:36 AM) Eos, Auto [0.00-3.00 %] 3.80 % *HI* (09/29/22 7:36 AM) Instr Ethanol Lvl [<=5 mg/dL] <5 mg/dL (09/29/22 7:36 AM) eGFR CKD-EPI [>=60 mL/min/1.73 m2] 112 m L/min/1.73 m2 (09/29/22 7:36 AM) 1Result Comment: due to the presence of >6 squamous epithelial cells/field this is not a suitablesample for culture. Radiology Reports * Exam Date Time Procedure Performing Provider Status 09/29/22 9:45 AM US Abdomen Limited DomainUser, Mirella ed; Auth (Verified) Notes: (US Abdomen Limited) Reason For Exam: RUQ Pain US Abdomen Limited EXAM DESCRIPTION: US Abdomen Limited 09/29/2022 INDICATION: RUQ PAIN TECHNIQUE: Grayscale and color Doppler ultrasound examination of the right upper quadrant region of the abdomen. COMPARISON: CT abdomen/pelvis examination from 09/29/2022, 0756 hours FINDINGS: Liver measures 16.4 cm in maximum dimension. Mild diffusely increased hepatic echogenicity suggesting mild hepatic steatosis. No focal hepatic lesion identified. No hepatic surface nodularity. The main portal vein is patent with normal flow direction No ascites in right upper quadrant The pancreas is partly obscured by overlying bowel gas. Visualized portions are unremarkable No cholelithiasis, gallbladder wall thickening or pericholecystic fluid accumulation. No biliary dilatation with common bile duct diameter of 5.9 mm Right kidney measures 10.6 cm in maximum dimension. No focal right renal mass, hydronephrosis or perinephric fluid collection. IMPRESSION: Findings suggesting mild hepatic steatosis. No focal hepatic lesion identified No cholelithiasis or biliary dilatation. JOB #: [id number] Final Signed by: Heath Montes MD Signed (Electronic Signature): 09/29/2022 9:58 am * Exam Date Time Procedure Performing Provider Status 09/29/22 8:[address] Abdomen and Pelvi s w/ Contrast DomainUser, Generated; Auth (Verified) Notes: (CT Abdomen and Pelvis w/ Contrast) Reason For Exam: Abdominal Pain CT Abdomen and Pelvis w/ Contrast EXAM DESCRIPTION: CT Abdomen and Pelvis w/ Contrast 09/29/2022 INDICATION: ABDOMINAL PAIN TECHNIQUE: All CT scans at this facility use at least one of these dose optimization techniques: Automated exposure control; mA and/or kV adjustment per patient size (includes targeted exams where dose is matched to clinical indication); or iterative reconstruction. Technique: Axial CT images of the abdomen/pelvis with IV contrast administration 100 cc of Isovue-300 contrast was utilized COMPARISON: None FINDINGS: No focal hepatic lesion. Normal enhancement of the main hepatic veins and main portal vein. Normal spleen size without focal mass No calcified gallstones in the gallbladder. Adrenal glands and pancreas appear within normal limits No focal renal mass, hydronephrosis or perinephric fluid collection on either side Normal caliber abdominal aorta. No retroperitoneal adenopathy in the abdomen or pelvis. Ovoid smoothly marginated fluid attenuation lesion in the right upper pelvis measuring 2.9 x 2.6 cm likely reflecting a right ovarian cyst. No bowel dilatation to suggest obstruction or ileus. No free intraperitoneal air, ascites or inflammatory changes. Normal appendix. Minimal subsegmental atelectasis or scarring in both lung bases No suspicious regional osseous lesions. IMPRESSION: Cystic lesion in the right upper pelvis most consistent with right ovarian cyst measuring 2.9 x 2.6 cm. Nonobstructive bowel pattern. No free air or inflammatory changes. Normal appendix. JOB #: [id number] Final Signed by: Heath Montes MD Signed (Electronic Signature): 09/29/2022 8:28 am Vital Signs Most recent to oldest [Reference Range]: 1 2 3 Temperature Temporal Artery [36-38 Deg C] 36.4 Deg C (09/29/22 6:51 AM) Peripheral Pulse Rate [60-100 bpm] 106 bpm *HI* (09/29/22 6:51 AM) Respiratory Rate [12-24 br/min] 16 br/min (09/29/22 9:02 AM) 17 br/min (09/29/22 8:22 AM) 14 br/min (09/29/22 6:51 AM) Blood Pressure [90-140/60-90 mmHg] 103/60mmHg (09/29/22 10:15 AM) 114/77mmHg (09/29/22 8:30 AM) 101/65mmHg (09/29/22 7:30 AM) Mean Arterial Pressure Cuff 73 mmHg (09/29/22 10:15 AM) 88 mmHg (09/29/22 8:30 AM) 77 mmHg (09/29/22 7:30 AM) Weight 77.56 kg (09/29/22 6:51 AM) Weight Dosing 77.56 kg (09/29/22 7:16 AM) Height 167.640 cm (09/29/22 6:51 AM) Height/Length Dosing 167.640 cm (09/29/22 7:16 AM) Body Mass Index 28.000 kg/m2 (09/29/22 6:51 AM) Social History Social History Type Response Tobacco Former tobacco user Tobacco Use:. Sex Hospital Discharge Instructions Patient Education 09/29/2022 09:13:46 Anemia Anemia Anemia is a condition in which there is not enough red blood cells or hemoglobin in the blood. Hemoglobin is a substance in red blood cells that carries oxygen. When you do not have enough red blood cells or hemoglobin (are anemic), your body cannot get enoughoxygen and your organs may not work properly. As a result, you may feel very tired or have other problems. What are the causes? Common causes of anemia include: ??? Excessive bleeding. Anemia can be caused by excessive bleeding inside or outside the body, including bleeding from the intestines or from heavy menstrual periods in females. ??? Poor nutrition. ??? Long-lasting (chronic) kidney, thyroid, and liver disease. ??? Bone marrow disorders, spleen problems, and blood disorders. ??? Cancer and treatments for cancer. ??? HIV (human immunodeficiency virus) and AIDS (acquired immunodeficiency syndrome). ??? Infections, medicines, and autoimmune disorders that destroy red blood cells. What are the signs or symptoms? Symptoms of this condition include: ??? Minor weakness. ??? Dizziness. ??? Headache, or difficulties concentrating and sleeping. ??? Heartbeats that feel irregular or faster than normal (palpitations). ??? Shortness of breath, especially with exercise. ??? Pale skin, lips, and nails, or cold hands and feet. ??? Indigestion and nausea. Symptoms may occur suddenly or develop slowly. If your anemia is mild, you may not have symptoms. How is this diagnosed? This condition is diagnosed based on blood tests, your medical history, and a physical exam. In some cases, a test may be needed in which cells are removed from the soft tissue inside of a bone and looked at under a microscope (bone marrow biopsy). Your health care provider may also check your stool (feces) for blood and may do additional testing to look for the cause of your bleeding. Other tests may include: ??? Imaging tests, such as a CT scan or MRI. ??? A procedure to see inside your esophagus and stomach (endoscopy). ??? A procedure to see inside your colon and rectum (colonoscopy). How is this treated? Treatment for this condition depends on the cause. If you continue to lose a lot of blood, you may need to be treated at a hospital. Treatment may include: ??? Taking supplements of iron, vitamin B12, or folic acid. ??? Taking a hormone medicine (erythropoietin) that can help to stimulate red blood cell growth. ??? Having a blood transfusion. This may be needed if you lose a lot of blood. ??? Making changes to your diet. ??? Having surgery to remove your spleen. Follow these instructions at home: ??? Take xwgn-fmw-dydkalk and prescription medicines only as told by your health care provider. ??? Take supplements only as told by your health care provider. ??? Follow any diet instructions that you were given by your health care provider. ??? Keep all follow-up visits as told by your health care provider. This is important. Contact a health care provider if: ??? You develop new bleeding anywhere in the body. Get help right away if: ??? You are very weak. ??? You are short of breath. ??? You have pain in your abdomen or chest. ??? You are dizzy or feel faint. ??? You have trouble concentrating. ??? You have bloody stools, black stools, or tarry stools. ??? You vomit repeatedly or you vomit up blood. These symptoms may represent a serious problem that is an emergency. Do not wait to see if the symptoms will go away. Get medical help right away. Call your local emergency services (911 in the [place] Do not drive yourself to the hospital. Summary ??? Anemia is a condition in which you do not have enough red blood cells or enough of a substance in your red blood cells that carries oxygen (hemoglobin). ??? Symptoms may occur suddenly or develop slowly. ??? If your anemia is mild, you may not have symptoms. ??? This condition is diagnosed with blood tests, a medical history, and a physical exam. Other tests may be needed. ??? Treatment for this condition depends on the cause of the anemia. This information is not intended to replace advice given to you by your health care provider. Make sure you discuss any questions you have with your health care provider. Document Revised: 06/15/2020 Document Reviewed: 06/15/2020 [employer] Patient Education ?? 2021 [employer]. 09/29/2022 09:13:39 Ovarian Cyst Ovarian Cyst An ovarian cyst is a fluid-filled sac that forms on an ovary. The ovaries are small organs that produce eggs in women. Various types of cysts can form on the ovaries. Some may cause symptoms and require treatment. Most ovarian cysts go away on their own, are not cancerous (are benign), and do not cause problems. What are the causes? Ovarian cysts may be caused by: ??? Ovarian hyperstimulation syndrome. This is a condition that can develop from taking fertility medicines. It causes multiple large ovarian cysts to form. ??? Polycystic ovarian syndrome (PCOS). This is a common hormonal disorder that can cause ovarian cysts to form, and can cause problems with your period or fertility. ??? The normal menstrual cycle. What increases the risk? The following factors may make you more likely to develop this condition: ??? Being overweight or obese. ??? Taking fertility medicines. ??? Taking certain forms of hormonal control. ??? Smoking. What are the signs or symptoms? Many ovarian cysts do not cause symptoms. If symptoms are present, they may include: ??? Pelvic pain or pressure. ??? Pain in the lower abdomen. ??? Pain during sex. ??? Abdominal swelling. ??? Abnormal menstrual periods. ??? Increasing pain with menstrual periods. How is this diagnosed? These cysts are commonly found during a routine pelvic exam. You may have tests to find out more about the cyst, such as: ??? Ultrasound. ??? CT scan. ??? MRI. ??? Blood tests. How is this treated? Many ovarian cysts go away on their own without treatment. Your health care provider may want to check your cyst regularly for 2???3 months to see if it changes. If you are in menopause, it is especially important to have your cyst monitored closely because menopausal women have a higher rate of ovarian cancer. When treatment is needed, it may include: ??? Medicines to help relieve pain. ??? A procedure to drain the cyst (aspiration). ??? Surgery to remove the whole cyst (cystectomy). ??? Hormone treatment or control pills. These methods are sometimes used to help keep cysts from coming back. ??? Surgery to remove the ovary (oophorectomy). Follow these instructions at home: ??? Take rjhx-nvo-caafxoh and prescription medicines only as told by your health care provider. ??? Ask your health care provider if any medicine prescribed to you requires you to avoid driving or using machinery. ??? Get regular pelvic exams and Pap tests as often as told by your health care provider. ??? Return to your normal activities as told by your health care provider. Ask your health care provider what activities are safe for you. ??? Do not use any products that contain nicotine or tobacco, such as cigarettes, e-cigarettes, andchewing tobacco. If you need help quitting, ask your health care provider. ??? Keep all follow-up visits. This is important. Contact a health care provider if: ??? Your periods are late, irregular, painful, or they stop. ??? You have pelvic pain that does not go away. ??? You have pressure on your bladder or trouble emptying your bladder completely. ??? You have any of the following: ??? A feeling of fullness. ??? You are gaining weight or losing weight without changing your exercise and eating habits. ??? Pain, swelling, or bloating in the abdomen. ??? Loss of appetite. ??? Pain and pressure in your back and pelvis. ??? You think you may be . Get help right away if: ??? You have abdominal or pelvic pain that is severe or gets worse. ??? You cannot eat or drink without vomiting. ??? You suddenly develop a fever or chills. ??? Your menstrual period is much heavier than usual. Summary ??? An ovarian cyst is a fluid-filled sac that forms on an ovary. ??? Some ovarian cysts may cause symptoms and require treatment. ??? These cysts are commonly found during a routine pelvic exam. ??? Many ovarian cysts go away on their own without treatment. This information is not intended to replace advice given to you by your health care provider. Make sure you discuss any questions you have with your health care provider. Document Revised: 12/16/2020 Document Reviewed: 12/16/2020 [employer] Patient Education ?? 2021 [employer]. 09/29/2022 06:54:06 Alcohol Withdrawal Syndrome, Iuse-hr-Qzrb Alcohol Withdrawal Syndrome When a person who drinks a lot of alcohol stops drinking, he or she may have unpleasant and serioussymptoms. These symptoms are called alcohol withdrawal syndrome. This condition may be mild or severe. It can be life-threatening. This condition can cause: ??? Shaking that you cannot control (tremor). ??? Sweating. ??? Headache. ??? Feeling fearful, upset, grouchy, or depressed. ??? Trouble sleeping (insomnia). ??? Nightmares. ??? Fast or uneven heartbeats (palpitations). ??? Alcohol cravings. ??? Feeling sick to your stomach (nausea). ??? Throwing up (vomiting). ??? Being bothered by light and sounds. ??? Confusion. ??? Trouble thinking clearly. ??? Not being hungry (loss of appetite). ??? Big changes in mood (mood swings). If you have all of the following symptoms at the same time, get help right away: ??? High blood pressure. ??? Fast heartbeat. ??? Trouble breathing. ??? Seizures. ??? Seeing, hearing, feeling, smelling, or tasting things that are not there (hallucinations). These symptoms are known as delirium tremens (DTs). They must be treated at the hospital right away. Follow these instructions at home: ??? Take dwqn-pjr-nlpkvxv and prescription medicines only as told by your doctor. This includes vitamins. ??? Do not drink alcohol. ??? Do not drive until your doctor says that this is safe for you. ??? Have someone stay with you or be available in case you need help. This should be someone you trust. This person can help you with your symptoms. He or she can also help you to not drink. ??? Drink enough fluid to keep your pee (urine) pale yellow. ??? Think about joining a support group or a treatment program to help you stop drinking. ??? Keep all follow-up visits as told by your doctor. This is important. Contact a doctor if: ??? Your symptoms get worse. ??? You cannot eat or drink without throwing up. ??? You have a hard time not drinking alcohol. ??? You cannot stop drinking alcohol. Get help right away if: ??? You have fast or uneven heartbeats. ??? You have chest pain. ??? You have trouble breathing. ??? You have a seizure for the first time. ??? You see, hear, feel, smell, or taste something that is not there. ??? You get very confused. Summary ??? When a person who drinks a lot of alcohol stops drinking, he or she may have serious symptoms. This is called alcohol withdrawal syndrome. ??? Delirium tremens (DTs) is a group of life-threatening symptoms. You should get help right away if you have these symptoms. ??? Think about joining an alcohol support group or a treatment program. This information is not intended to replace advice given to you by your health care provider. Make sure you discuss any questions you have with your health care provider. Document Revised: 05/30/2021 Document Reviewed: 05/30/2021 [employer] Patient Education ?? 2021 [employer]. 09/29/2022 06:53:45 Iron Deficiency Anemia, Adult Iron Deficiency Anemia, Adult Iron deficiency anemia is a condition in which the concentration of red blood cells or hemoglobin in the blood is below normal because of too little iron. Hemoglobin is a substance in red blood cellsthat carries oxygen to the body's tissues. When the concentration of red blood cells or hemoglobin is too low, not enough oxygen reaches these tissues. Iron deficiency anemia is usually long-lasting, and it develops over time. It may or may not cause symptoms. It is a common type of anemia. What are the causes? This condition may be caused by: ??? Not enough iron in the diet. ??? Abnormal absorption in the gut. ??? Increased need for iron because of or heavy menstrual periods, for females. ??? Cancers of the gastrointestinal system, such as colon cancer. ??? Blood loss caused by bleeding in the intestine. This may be from a gastrointestinal condition like Crohn's disease. ??? Frequent blood draws, such as from blood donation. What increases the risk? The following factors may make you more likely to develop this condition: ??? Being . ??? Being a teenage girl going through a growth spurt. What are the signs or symptoms? Symptoms of this condition may include: ??? Pale skin, lips, and nail beds. ??? Weakness, dizziness, and getting tired easily. ??? Headache. ??? Shortness of breath when moving or exercising. ??? Cold hands and feet. ??? Fast or irregular heartbeat. ??? Irritability or rapid breathing. These are more common in severe anemia. Mild anemia may not cause any symptoms. How is this diagnosed? This condition is diagnosed based on: ??? Your medical history. ??? A physical exam. ??? Blood tests. You may have additional tests to find the underlying cause of your anemia, such as: ??? Testing for blood in the stool (fecal occult blood test). ??? A procedure to see inside your colon and rectum (colonoscopy). ??? A procedure to see inside your esophagus and stomach (endoscopy). ??? A test in which cells are removed from bone marrow (bone marrow aspiration) or fluid is removedfrom the bone marrow to be examined. This is rarely needed. How is this treated? This condition is treated by correcting the cause of your iron deficiency. Treatment may involve: ??? Adding iron-rich foods to your diet. ??? Taking iron supplements. If you are or , you may need to take extra iron because your normal diet usually does not provide the amount of iron that you need. ??? Increasing vitamin C intake. Vitamin C helps your body absorb iron. Your health care provider may recommend that you take iron supplements along with a glass of orange juice or a vitamin C supplement. ??? Medicines to make heavy menstrual flow summer associate. ??? Surgery. You may need repeat blood tests to determine whether treatment is working. If the treatment does not seem to be working, you may need more tests. Follow these instructions at home: Medicines ??? Take fbil-btr-wzdnqbz and prescription medicines only as told by your health care provider. This includes iron supplements and vitamins. ??? For the best iron absorption, you should take iron supplements when your stomach is empty. If you cannot tolerate them on an empty stomach, you may need to take them with food. ??? Do not drink milk or take antacids at the same time as your iron supplements. Milk and antacidsmay interfere with iron absorption. ??? Iron supplements may turn stool (feces) a darker color and it may appear black. ??? If you cannot tolerate taking iron supplements by mouth, talk with your health care provider about taking them through an IV or through an injection into a muscle. Eating and drinking ??? Talk with your health care provider before changing your diet. He or she may recommend that youeat foods that contain a lot of iron, such as: ??? Liver. ??? Low-fat (lean) beef. ??? Breads and cereals that have iron added to them (are fortified). ??? Eggs. ??? Dried fruit. ??? Dark green, leafy vegetables. ??? To help your body use the iron from iron-rich foods, eat those foods at the same time as fresh fruits and vegetables that are high in vitamin C. Foods that are high in vitamin C include: ??? Oranges. ??? Peppers. ??? Tomatoes. ??? Mangoes. ??? Drink enough fluid to keep your urine pale yellow. Managing constipation If you are taking an iron supplement, it may cause constipation. To prevent or treat constipation, you may need to: ??? Take thtx-uwo-gyjlqej or prescription medicines. ??? Eat foods that are high in fiber, such as beans, whole grains, and fresh fruits and vegetables. ??? Limit foods that are high in fat and processed sugars, such as fried or sweet foods. General instructions ??? Return to your normal activities as told by your health care provider. Ask your health care provider what activities are safe for you. ??? Practice good hygiene. Anemia can make you more prone to illness and infection. ??? Keep all follow-up visits as told by your health care provider. This is important. Contact a health care provider if you: ??? Feel nauseous or you vomit. ??? Feel weak. ??? Have unexplained sweating. ??? Develop symptoms of constipation, such as: ??? Having fewer than three bowel movements a week. ??? Straining to have a bowel movement. ??? Having stools that are hard, dry, or larger than normal. ??? Feeling full or bloated. ??? Pain in the lower abdomen. ??? Not feeling relief after having a bowel movement. Get help right away if you: ??? Faint. If this happens, do not drive yourself to the hospital. ??? Have chest pain. ??? Have shortness of breath that: ??? Is severe. ??? Gets worse with physical activity. ??? Have an irregular or rapid heartbeat. ??? Become light-headed when getting up from a sitting or lying down position. These symptoms may represent a serious problem that is an emergency. Do not wait to see if the symptoms will go away. Get medical help right away. Call your local emergency services (911 in the [place] Do not drive yourself to the hospital. Summary ??? Iron deficiency anemia is a condition in which the concentration of red blood cells or hemoglobin in the blood is below normal because of too little iron. ??? This condition is treated by correcting the cause of your iron deficiency. ??? Take dhdv-nws-nlbagsh and prescription medicines only as told by your health care provider. This includes iron supplements and vitamins. ??? To help your body use the iron from iron-rich foods, eat those foods at the same time as fresh fruits and vegetables that are high in vitamin C. ??? Get help right away if you have shortness of breath that gets worse with physical activity. This information is not intended to replace advice given to you by your health care provider. Make sure you discuss any questions you have with your health care provider. Document Revised: 03/16/2020 Document Reviewed: 03/16/2020 [employer] Patient Education ?? 2021 [employer]. Follow Up Care 09/29/2022 06:51:35 With:[facility] Address: [address] [place] [phone] When:1 week only if needed Physician Emergency department Note * Channing Jimenes, DO: PERFORM, MODIFY Event Display: ED Note Physician Authored Date: [id number] LEONOR RAMIREZ :1980 Age:41 years Sex:Female Visit Date:09/29/2022 Basic Information Time Seen: Channing Jimenes, / 09/29/2022 07:22 Chief Complaint URQ pain x 1 day, ETOH detox History Of Present Illness: This is a??41-year-old female PMH s/p gastric bypass, alcohol use disorder??with current relapse??07/23/2022 reportedly drinking??at least 1/5 of vodka a day??presents to the emergency department with right upper quadrant abdominal pain.?? She states that she recently went into??remission??with??AAA meetings and support of her father.?? She started this??cessation of alcohol approximately 48-hours ago and feels she went through the worst of her??shaking??and withdrawal symptoms.?? No history of alcohol withdrawal seizures.?? Yesterday after eating she noticed postprandial right upper quadrant abdominal pain.?? She describes the pain??as a??persistent pressure/ache in the right upper quadrant with radiation to her back.?? No particular pain across the epigastrium.?? Patient is having episodes of nausea/vomiting without diarrhea.?? No hematemesis, melena or hematochezia.?? No fevers or chills. Review of Systems: CONSTITUTIONAL: _No weight loss, fever, chills, weakness or fatigue SKIN: _No rash, no itching, no jaundice EYES: _No visual loss, blurred vision, double vision or scleral icterus ENT: _No ear pain; patent nares without bleeding or congestion; no sore throat CARDIOLOGY: _No chest pain, No edema, No palpitations PULMONOLOGY: _No pleuritic chest pain, No fuzygeonc-qb-pmfvru, No cough, No hemoptysis ABDOMEN:_(+)ve nausea /??vomiting,??(+)ve RUQ??abdominal pain, no melena, no hematochezia :_no dysuria, no urinary frequency, no urinary urgency NEURO:_No focal neurological deficit, no headache, no dizziness ?? REST OF REVIEW OF SYSTEMS IS NEGATIVE PERTAINS TO CHIEF COMPLAINT Physical Exam Vitals & Measurements T:??36.4?C ??(Temporal Artery)?? HR:??106??(Peripheral)?? RR:??14?? BP:??101/65?? SpO2:??99%?? HT:??167.640??cm?? WT:??77.56??kg?? BMI:??28.000?? Pain Score:??7?? O2 Therapy:??Room air?? GENERAL: This is a very pleasant??middle age female appearing older than her stated age??in mild RUQ discomfort??and no??cardiopulmonary distress. SKIN: Warm and dry. No rash. HEENT: Normocephalic, atraumatic. ??PERRLA, EOMI, no conjunctival injection, no scleral icterus. ??TMs not examined. ??Nares are without congestion or rhinorrhea. ??No posterior pharyngeal erythema or tonsillar exudate. ??Dentition grossly intact. ??Mucous membranes are moist. NECK: Supple. No midline tenderness. No JVD. No thyromegaly. Dynamic ROM against resistance intact. HEART: Regular rate and rhythm. ??S1 and S2. No murmur. LUNGS: Clear to auscultation bilaterally. ??No respiratory distress. ABDOMEN: Non-distended, RUQ tenderness with voluntary guarding; NO??rebound or rigidity. ??Collazo sign POSITIVE. ??No McBurney's point tenderness. ??Psoas negative. ??Obturator negative. ??Rovsing sign negative. EXTREMITIES: No unilateral leg swelling or posterior calf tenderness. No edema. NEUROLOGIC: No acute focal neurological deficit. Medical Decision Making: Right upper quadrant abdominal pain.?? Bedside ultrasound inconclusive as the gallbladder was not visualized despite having really good windows??seeing all the structures surrounding the gallbladder.?? It is entirely possible the gallbladder is contracted.?? There was positive Collazo sign sonographically as well as??on clinical examination.?? No particular pain over the epigastrium or??pancreaticregion.?? Will obtain screening laboratory work-up,??urinalysis, urine ,??and CT abdomen/pelvis with contrast. ??This will able to ascertain whether or not she truly has a gallbladder as sheis unclear??whether or not this was removed during her gastric bypass surgery.?? I will also allow u s to??image the pancreas??as a possible etiology to her pain.?? If no etiology is found and the patient does indeed have a gallbladder, I will send her for right upper quadrant ultrasound imaging. ??We will treat her symptoms with??morphine/Zofran and gentle IV fluid hydration. Procedure PROCEDURE NOTE: Biliary Ultrasound Performed by: Self Indication:??_? Technique:??Phased Array??Probe [place] Protocol: A time out was performed and the correct patient was verified. Sonographic Views:??All (gallbladder transverse/sagittal and CBD)? Findings: The patient was scanned across the abdomen utilizing the above noted probe. ??Unfortunately after??extensive scanning??I was unable to visualize the gallbladder??as it is likely contracted. ??The common bile duct was not visualized.. ??Patient did have positive sonographic Collazo sign. ??Patient igor erated the procedure well without apparent complications. ? Impression:??Normal Exam? Limitations:??_ No Qualifying Data Reexamination/Reevaluation 8:50 AM: Laboratory work-up reveals white blood cell count 4.4, hemoglobin 8.1, hematocrit 30.4, MCV 75.1, and platelet count 203.?? Chemistries reveal sodium 134, potassium 3.8, chloride 105, CO2 22, BUN 17, creatinine 0.70, glucose 96 mg/dL.?? Liver function testing is unremarkable.?? Lipase is normal at 30.?? Serum is negative.?? Urinalysis is otherwise still pending.?? Alcohol level0.?? CT abdomen/pelvis demonstrated a 2.9 x 2.6 right ovarian cyst in the right upper pelvis otherwise no acute findings.?? While there was no calcified gallstones in the gallbladder I do feel right upper quadrant ultrasound is the next step to evaluate her right upper quadrant pain that radiates to her back. ?? 9 AM: This patient's care has been transferred to the incoming physician. We discussed: the patient's chief complaint; labs and imaging that have been completed and those that are still pending; procedures that have been completed and those remaining to be done; any treatment provided and the patient's response to treatment; input from consultants (if any); the remaining treatment plan. The incoming physician will follow up on all pending labs and imaging, make any necessary changes to the current impression and/or treatment plan and provide a final disposition. Assessment/Plan 1.??Microcytic hypochromic anemia??D50.9 2.??Alcohol use disorder??F19.90 3.??Right ovarian cyst??N83.201 Orders: morphine, 2 mg = 1 mL, IV Push, Injection, every 20 min for 3 doses, PRN pain, moderate, First Dose: 09/29/22 7:28:00 EST, Stop Date: Limited # of times, Physician Stop Normal Saline Flush, 10 mL, IV Flush, Injection, As Directed, PRN first line supervisor, First Dose: 09/29/22 7:28:00 EST, Routine Sodium Chloride 0.9% 1,000 mL, Total Volume (mL): 1,000, 1,000 mL, Soln-IV, IV Bolus, 999 mL/hr, Start Date: 09/29/22 7:27:00 EST, 77.56 kg, Populate Charting Weight From Order, 1.9, m2 Sodium Chloride 0.9% 1,000 mL, Total Volume (mL): 1,000, 1,000 mL, Soln-IV, IV, 125 mL/hr, Start Date: 09/29/22 7:27:00 EST, 77.56 kg, Populate Charting Weight From Order, 1.9, m2 NPO, 09/29/22 7:27:00 EST, Constant Indicator Urinalysis with Micro if Indicated and Culture if Indicated, Urine, Stat Collect, 09/29/22 7:27:00 EST, Once, Nurse collect, Print Label US Abdomen Limited, 09/29/22 8:48:00 EST, Stat, Reason: RUQ Pain, Transport Mode: Stretcher Vital Signs, 09/29/22 7:27:00 EST, Once, Stop date 09/29/22 7:27:00 EST, Q15min until stable and SBP greater than 90, then Q1hour Patient Education Alcohol Withdrawal Syndrome, Gzds-ex-Fgxd Iron Deficiency Anemia, Adult Follow Up With When Contact Information [facility] Within 1 week, only if needed [address], [place] [phone]- [phone] Additional Instructions: Medication Reconciliation Unchanged acetaZOLAMIDE (acetaZOLAMIDE 250 mg oral tablet)TAKE 1 TABLET BY MOUTH EVERY DAY. ?? ARIPiprazole (ARIPiprazole 5 mg oral tablet)TAKE 1 TABLET BY MOUTH EVERY DAY. ?? gabapentin (gabapentin 600 mg oral tablet)TAKE 2 TABLETS (1,200 MG) BY MOUTH 3 TIMES PER DAY. ?? hydrOXYzine (hydrOXYzine pamoate 50 mg oral capsule)TAKE 2 CAPSULES BY MOUTH TWICE A DAY NEEDED. ?? LORazepam (LORazepam 1 mg oral tablet)PLEASE SEE ATTACHED FOR DETAILED DIRECTIONS. ?? QUEtiapine (QUEtiapine 200 mg oral tablet)TAKE 1 TABLET BY MOUTH AT BEDTIME. Problem List/Past Medical History Ongoing Alcohol use disorder Historical No qualifying data Medication Administration Given Sodium Chloride 0.9%, 1000 mL, IV Bolus ondansetron, 4 mg, IV Push Allergies Clopine Valium Xanax Social History Electronic Cigarette/Vaping Electronic Cigarette Use: Use, within last 90 days. Type: Nicotine infused. Use per Day: 26-50 Inhales/day. Tobacco Former tobacco user Tobacco Use:. Family History Non-Contributory Lab Results CBC and Differential?? LATEST RESULTS?? WBC?? 09/29/22 07:36?? 4.4 ??Low?? RBC?? 09/29/22 07:36?? 4.05 ??Low?? Hgb?? 09/29/22 07:36?? 8.1 ??Low?? Hct?? 09/29/22 07:36?? 30.4 ??Low?? MCV?? 09/29/22 07:36?? 75.1 ??Low?? MCH?? 09/29/22 07:36?? 20.0 ??Low?? MCHC?? 09/29/22 07:36?? 26.6 ??Low?? RDW-CV?? 09/29/22 07:36?? 21.5 ??High?? Platelets?? 09/29/22 07:36?? 203?? MPV?? 09/29/22 07:36?? 9.7?? Neutro Auto?? 09/29/22 07:36?? 66.3?? Lymph Auto?? 09/29/22 07:36?? 19.9 ??Low?? [place] Auto?? 09/29/22 07:36?? 8.4?? Eos, Auto?? 09/29/22 07:36?? 3.80 ??High?? Basophil Auto?? 09/29/22 07:36?? 1.1 ??High?? Imm Gran Auto?? 09/29/22 07:36?? 0.5?? Neutro Absolute?? 09/29/22 07:36?? 2.9?? Lymph Absolute?? 09/29/22 07:36?? 0.9 ??Low?? [place] Absolute?? 09/29/22 07:36?? 0.4?? Eos Absolute?? 09/29/22 07:36?? 0.2?? Baso Absolute?? 09/29/22 07:36?? 0.0?? Imm Gran Absolute?? 09/29/22 07:36?? 0.02? Electronically Signed on 09/29/22 08:56 AM Channing Jimenes DO Emergency department Discharge instructions * Temo Hopkins MD: PERFORM Event Display: ED Discharge Information Authored Date: [id number] LEONOR RAMIREZ :1980 Age:41 years Sex:Female Visit Date:09/29/2022 Discharge Instructions We would like to thank you for allowing us to assist you with your healthcare needs. The following includes patient education materials and information regarding your injury/illness. Diagnosis from Today's Visit Microcytic hypochromic anemia Alcohol use disorder Right ovarian cyst Ovarian cyst Anemia Discharge Vitals Temperature??(Temporal Artery) 97.5 ??F (36.4 ??C) Heart Rate??(Peripheral) 106 Respiratory Rate?? 16 Blood Pressure?? 114/77?? Height?? 66.00 in (167.640 cm) Weight?? 171.02 lb (77.56 kg) BMI?? 28.000 Allergies Clopine Valium Xanax What to Do Next Instructions from Your Care Team Tylenol as directed fyxz-gzn-qabloew for pain. ??Flexeril increased pain. ??Follow-up with [facility] (Dr. Mujica) for lack of improvement within several days. ??Follow-up with regular doctor within 1 to 2 weeks for repeat blood work for anemia recheck. ??Return for worsening symptoms You Need to Schedule the Following Appointments Follow Up with??[facility] When:??Within 1 week, only if needed Where: [address] [place] [phone] You were treated today on an emergency [...] Much When Why Instructions Next Dose New cyclobenzaprine (cyclobenzaprine 10 mg oral tablet) 1 tab Oral (given by mouth) 3 times a day as needed for pain Microcytic hypochromic anemia Alcohol use disorder Right ovarian cyst Printed Prescription New cyclobenzaprine (cyclobenzaprine 10 mg oral tablet) 1 tab Oral (given by mouth) 3 times a day as needed for pain Microcytic hypochromic anemia Alcohol use disorder Right ovarian cyst Pickup at [facility] [address] Unchanged acetaZOLAMIDE (acetaZOLAMIDE 250 mg oral tablet) TAKE 1 TABLET BY MOUTH EVERY DAY ?? Unchanged ARIPiprazole (ARIPiprazole 5 mg oral tablet) TAKE 1 TABLET BY MOUTH EVERY DAY ?? Unchanged gabapentin (gabapentin 600 mg oral tablet) TAKE 2 TABLETS (1,200 MG) BY MOUTH 3 TIMES PER DAY ?? Unchanged hydrOXYzine (hydrOXYzine pamoate 50 mg oral capsule) TAKE 2 CAPSULES BY MOUTH TWICE A DAY NEEDED ?? Unchanged LORazepam (LORazepam 1 mg oral tablet) PLEASE SEE ATTACHED FOR DETAILED DIRECTIONS ?? Unchanged QUEtiapine (QUEtiapine 200 mg oral tablet) TAKE 1 TABLET BY MOUTH AT BEDTIME ?? Pharmacy Information [id number]: [address] [place], [place] [phone] [employer] Anemia Anemia is a condition in which there is not enough red blood cells or hemoglobin in the blood. Hemoglobin is a substance in red blood cells that carries oxygen. When you do not have enough red blood cells or hemoglobin (are anemic), your body cannot get enoughoxygen and your organs may not work properly. As a result, you may feel very tired or have other problems. What are the causes? Common causes of anemia include: ? Excessive bleeding. Anemia can be caused by excessive bleeding inside or outside the body, including bleeding from the intestines or from heavy menstrual periods in females. ? Poor nutrition. ? Long-lasting (chronic) kidney, thyroid, and liver disease. ? Bone marrow disorders, spleen problems, and blood disorders. ? Cancer and treatments for cancer. ? HIV (human immunodeficiency virus) and AIDS (acquired immunodeficiency syndrome). ? Infections, medicines, and autoimmune disorders that destroy red blood cells. What are the signs or symptoms? Symptoms of this condition include: ? Minor weakness. ? Dizziness. ? Headache, or difficulties concentrating and sleeping. ? Heartbeats that feel irregular or faster than normal (palpitations). ? Shortness of breath, especially with exercise. ? Pale skin, lips, and nails, or cold hands and feet. ? Indigestion and nausea. Symptoms may occur suddenly or develop slowly. If your anemia is mild, you may not have symptoms. How is this diagnosed? This condition is diagnosed based on blood tests, your medical history, and a physical exam. In some cases, a test may be needed in which cells are removed from the soft tissue inside of a bone and looked at under a microscope (bone marrow biopsy). Your health care provider may also check your stool (feces) for blood and may do additional testing to look for the cause of your bleeding. Other tests may include: ? Imaging tests, such as a CT scan or MRI. ? A procedure to see inside your esophagus and stomach (endoscopy). ? A procedure to see inside your colon and rectum (colonoscopy). How is this treated? Treatment for this condition depends on the cause. If you continue to lose a lot of blood, you may need to be treated at a hospital. Treatment may include: ? Taking supplements of iron, vitamin B12, or folic acid. ? Taking a hormone medicine (erythropoietin) that can help to stimulate red blood cell growth. ? Having a blood transfusion. This may be needed if you lose a lot of blood. ? Making changes to your diet. ? Having surgery to remove your spleen. Follow these instructions at home: ? Take rqeo-mbe-kwdincm and prescription medicines only as told by your health care provider. ? Take supplements only as told by your health care provider. ? Follow any diet instructions that you were given by your health care provider. ? Keep all follow-up visits as told by your health care provider. This is important. Contact a health care provider if: ? You develop new bleeding anywhere in the body. Get help right away if: ? You are very weak. ? You are short of breath. ? You have pain in your abdomen or chest. ? You are dizzy or feel faint. ? You have trouble concentrating. ? You have bloody stools, black stools, or tarry stools. ? You vomit repeatedly or you vomit up blood. These symptoms may represent a serious problem that is an emergency. Do not wait to see if the symptoms will go away. Get medical help right away. Call your local emergency services (911 in the [place] Do not drive yourself to the hospital. Summary ? Anemia is a condition in which you do not have enough red blood cells or enough of a substance in your red blood cells that carries oxygen (hemoglobin). ? Symptoms may occur suddenly or develop slowly. ? If your anemia is mild, you may not have symptoms. ? This condition is diagnosed with blood tests, a medical history, and a physical exam. Other tests may be needed. ? Treatment for this condition depends on the cause of the anemia. This information is not intended to replace advice given to you by your health care provider. Make sure you discuss any questions you have with your health care provider. Document Revised: 06/15/2020 Document Reviewed: 06/15/2020 [employer] Patient Education ?? 2021 [employer]. Ovarian Cyst An ovarian cyst is a fluid-filled sac that forms on an ovary. The ovaries are small organs that produce eggs in women. Various types of cysts can form on the ovaries. Some may cause symptoms and require treatment. Most ovarian cysts go away on their own, are not cancerous (are benign), and do not cause problems. What are the causes? Ovarian cysts may be caused by: ? Ovarian hyperstimulation syndrome. This is a condition that can develop from taking fertility medicines. It causes multiple large ovarian cysts to form. ? Polycystic ovarian syndrome (PCOS). This is a common hormonal disorder that can cause ovarian cyststo form, and can cause problems with your period or fertility. ? The normal menstrual cycle. What increases the risk? The following factors may make you more likely to develop this condition: ? Being overweight or obese. ? Taking fertility medicines. ? Taking certain forms of hormonal control. ? Smoking. What are the signs or symptoms? Many ovarian cysts do not cause symptoms. If symptoms are present, they may include: ? Pelvic pain or pressure. ? Pain in the lower abdomen. ? Pain during sex. ? Abdominal swelling. ? Abnormal menstrual periods. ? Increasing pain with menstrual periods. How is this diagnosed? These cysts are commonly found during a routine pelvic exam. You may have tests to find out more about the cyst, such as: ? Ultrasound. ? CT scan. ? MRI. ? Blood tests. How is this treated? Many ovarian cysts go away on their own without treatment. Your health care provider may want to check your cyst regularly for 2???3 months to see if it changes. If you are in menopause, it is especially important to have your cyst monitored closely because menopausal women have a higher rate of ovarian cancer. When treatment is needed, it may include: ? Medicines to help relieve pain. ? A procedure to drain the cyst (aspiration). ? Surgery to remove the whole cyst (cystectomy). ? Hormone treatment or control pills. These methods are sometimes used to help keep cysts from coming back. ? Surgery to remove the ovary (oophorectomy). Follow these instructions at home: ? Take gzeu-blc-nnomfze and prescription medicines only as told by your health care provider. ? Ask your health care provider if any medicine prescribed to you requires you to avoid driving or using machinery. ? Get regular pelvic exams and Pap tests as often as told by your health care provider. ? Return to your normal activities as told by your health care provider. Ask your health care provider what activities are safe for you. ? Do not use any products that contain nicotine or tobacco, such as cigarettes, e- cigarettes, and chewing tobacco. If you need help quitting, ask your health care provider. ? Keep all follow-up visits. This is important. Contact a health care provider if: ? Your periods are late, irregular, painful, or they stop. ? You have pelvic pain that does not go away. ? You have pressure on your bladder or trouble emptying your bladder completely. ? You have any of the following: ? A feeling of fullness. ? You are gaining weight or losing weight without changing your exercise and eating habits. ? Pain, swelling, or bloating in the abdomen. ? Loss of appetite. ? Pain and pressure in your back and pelvis. ? You think you may be . Get help right away if: ? You have abdominal or pelvic pain that is severe or gets worse. ? You cannot eat or drink without vomiting. ? You suddenly develop a fever or chills. ? Your menstrual period is much heavier than usual. Summary ? An ovarian cyst is a fluid-filled sac that forms on an ovary. ? Some ovarian cysts may cause symptoms and require treatment. ? These cysts are commonly found during a routine pelvic exam. ? Many ovarian cysts go away on their own without treatment. This information is not intended to replace advice given to you by your health care provider. Make sure you discuss any questions you have with your health care provider. Document Revised: 12/16/2020 Document Reviewed: 12/16/2020 [employer] Patient Education ?? 2021 [employer] Alcohol Withdrawal Syndrome When a person who drinks a lot of alcohol stops drinking, he or she may have unpleasant and serioussymptoms. These symptoms are called alcohol withdrawal syndrome. This condition may be mild or severe. It can be life-threatening. This condition can cause: ? Shaking that you cannot control (tremor). ? Sweating. ? Headache. ? Feeling fearful, upset, grouchy, or depressed. ? Trouble sleeping (insomnia). ? Nightmares. ? Fast or uneven heartbeats (palpitations). ? Alcohol cravings. ? Feeling sick to your stomach (nausea). ? Throwing up (vomiting). ? Being bothered by light and sounds. ? Confusion. ? Trouble thinking clearly. ? Not being hungry (loss of appetite). ? Big changes in mood (mood swings). If you have all of the following symptoms at the same time, get help right away: ? High blood pressure. ? Fast heartbeat. ? Trouble breathing. ? Seizures. ? Seeing, hearing, feeling, smelling, or tasting things that are not there (hallucinations). These symptoms are known as delirium tremens (DTs). They must be treated at the hospital right away. Follow these instructions at home: ? Take teev-mfv-iojvjlr and prescription medicines only as told by your doctor. This includes vitamins. ? Do not drink alcohol. ? Do not drive until your doctor says that this is safe for you. ? Have someone stay with you or be available in case you need help. This should be someone you trust.This person can help you with your symptoms. He or she can also help you to not drink. ? Drink enough fluid to keep your pee (urine) pale yellow. ? Think about joining a support group or a treatment program to help you stop drinking. ? Keep all follow-up visits as told by your doctor. This is important. Contact a doctor if: ? Your symptoms get worse. ? You cannot eat or drink without throwing up. ? You have a hard time not drinking alcohol. ? You cannot stop drinking alcohol. Get help right away if: ? You have fast or uneven heartbeats. ? You have chest pain. ? You have trouble breathing. ? You have a seizure for the first time. ? You see, hear, feel, smell, or taste something that is not there. ? You get very confused. Summary ? When a person who drinks a lot of alcohol stops drinking, he or she may have serious symptoms. Thisis called alcohol withdrawal syndrome. ? Delirium tremens (DTs) is a group of life-threatening symptoms. You should get help right away if you have these symptoms. ? Think about joining an alcohol support group or a treatment program. This information is not intended to replace advice given to you by your health care provider. Make sure you discuss any questions you have with your health care provider. Document Revised: 05/30/2021 Document Reviewed: 05/30/2021 [employer] Patient Education ?? 2021 [employer] Iron Deficiency Anemia, Adult Iron deficiency anemia is a condition in which the concentration of red blood cells or hemoglobin in the blood is below normal because of too little iron. Hemoglobin is a substance in red blood cellsthat carries oxygen to the body's tissues. When the concentration of red blood cells or hemoglobin is too low, not enough oxygen reaches these tissues. Iron deficiency anemia is usually long-lasting, and it develops over time. It may or may not cause symptoms. It is a common type of anemia. What are the causes? This condition may be caused by: ? Not enough iron in the diet. ? Abnormal absorption in the gut. ? Increased need for iron because of or heavy menstrual periods, for females. ? Cancers of the gastrointestinal system, such as colon cancer. ? Blood loss caused by bleeding in the intestine. This may be from a gastrointestinal condition like Crohn's disease. ? Frequent blood draws, such as from blood donation. What increases the risk? The following factors may make you more likely to develop this condition: ? Being . ? Being a teenage girl going through a growth spurt. What are the signs or symptoms? Symptoms of this condition may include: ? Pale skin, lips, and nail beds. ? Weakness, dizziness, and getting tired easily. ? Headache. ? Shortness of breath when moving or exercising. ? Cold hands and feet. ? Fast or irregular heartbeat. ? Irritability or rapid breathing. These are more common in severe anemia. Mild anemia may not cause any symptoms. How is this diagnosed? This condition is diagnosed based on: ? Your medical history. ? A physical exam. ? Blood tests. You may have additional tests to find the underlying cause of your anemia, such as: ? Testing for blood in the stool (fecal occult blood test). ? A procedure to see inside your colon and rectum (colonoscopy). ? A procedure to see inside your esophagus and stomach (endoscopy). ? A test in which cells are removed from bone marrow (bone marrow aspiration) or fluid is removed from the bone marrow to be examined. This is rarely needed. How is this treated? This condition is treated by correcting the cause of your iron deficiency. Treatment may involve: ? Adding iron-rich foods to your diet. ? Taking iron supplements. If you are or , you may need to take extra iron because your normal diet usually does not provide the amount of iron that you need. ? Increasing vitamin C intake. Vitamin C helps your body absorb iron. Your health care provider may recommend that you take iron supplements along with a glass of orange juice or a vitamin C supplement. ? Medicines to make heavy menstrual flow summer associate. ? Surgery. You may need repeat blood tests to determine whether treatment is working. If the treatment does not seem to be working, you may need more tests. Follow these instructions at home: Medicines ? Take utgw-hru-isrrhcf and prescription medicines only as told by your health care provider. This includes iron supplements and vitamins. ? For the best iron absorption, you should take iron supplements when your stomach is empty. If you cannot tolerate them on an empty stomach, you may need to take them with food. ? Do not drink milk or take antacids at the same time as your iron supplements. Milk and antacids mayinterfere with iron absorption. ? Iron supplements may turn stool (feces) a darker color and it may appear black. ? If you cannot tolerate taking iron supplements by mouth, talk with your health care provider about taking them through an IV or through an injection into a muscle. Eating and drinking ? Talk with your health care provider before changing your diet. He or she may recommend that you eatfoods that contain a lot of iron, such as: ? Liver. ? Low-fat (lean) beef. ? Breads and cereals that have iron added to them (are fortified). ? Eggs. ? Dried fruit. ? Dark green, leafy vegetables. ? To help your body use the iron from iron-rich foods, eat those foods at the same time as fresh fruits and vegetables that are high in vitamin C. Foods that are high in vitamin C include: ? Oranges. ? Peppers. ? Tomatoes. ? Mangoes. ? Drink enough fluid to keep your urine pale yellow. Managing constipation If you are taking an iron supplement, it may cause constipation. To prevent or treat constipation, you may need to: ? Take ujhe-qsy-smhzmwm or prescription medicines. ? Eat foods that are high in fiber, such as beans, whole grains, and fresh fruits and vegetables. ? Limit foods that are high in fat and processed sugars, such as fried or sweet foods. General instructions ? Return to your normal activities as told by your health care provider. Ask your health care provider what activities are safe for you. ? Practice good hygiene. Anemia can make you more prone to illness and infection. ? Keep all follow-up visits as told by your health care provider. This is important. Contact a health care provider if you: ? Feel nauseous or you vomit. ? Feel weak. ? Have unexplained sweating. ? Develop symptoms of constipation, such as: ? Having fewer than three bowel movements a week. ? Straining to have a bowel movement. ? Having stools that are hard, dry, or larger than normal. ? Feeling full or bloated. ? Pain in the lower abdomen. ? Not feeling relief after having a bowel movement. Get help right away if you: ? Faint. If this happens, do not drive yourself to the hospital. ? Have chest pain. ? Have shortness of breath that: ? Is severe. ? Gets worse with physical activity. ? Have an irregular or rapid heartbeat. ? Become light-headed when getting up from a sitting or lying down position. These symptoms may represent a serious problem that is an emergency. Do not wait to see if the symptoms will go away. Get medical help right away. Call your local emergency services (911 in the [place] Do not drive yourself to the hospital. Summary ? Iron deficiency anemia is a condition in which the concentration of red blood cells or hemoglobin in the blood is below normal because of too little iron. ? This condition is treated by correcting the cause of your iron deficiency. ? Take arkd-frk-vzvxvjv and prescription medicines only as told by your health care provider. This includes iron supplements and vitamins. ? To help your body use the iron from iron-rich foods, eat those foods at the same time as fresh fruits and vegetables that are high in vitamin C. ? Get help right away if you have shortness of breath that gets worse with physical activity. This information is not intended to replace advice given to you by your health care provider. Make sure you discuss any questions you have with your health care provider. Document Revised: 03/16/2020 Document Reviewed: 03/16/2020 [employer] Patient Education ?? 2021 [employer] Tests Performed Radiology CT Abdomen and Pelvis w/ Contrast 09/29/2022 08:30 EST US Abdomen Limited 09/29/2022 10:00 EST Medications and Immunizations Administered Given Sodium Chloride 0.9%, 1000 mL, IV Bolus Sodium Chloride 0.9%, 1000 mL, IV morphine, 2 mg, 2 mg, IV Push ondansetron, 4 mg, IV Push Lab Test Name Test Result Date/Time WBC 4.4 K/mcL 09/29/2022 07:36 EST RBC 4.05 Million/mcL 09/29/2022 07:36 EST Hgb 8.1 g/dL 09/29/2022 07:36 EST Hct 30.4 % 09/29/2022 07:36 EST MCV 75.1 fL 09/29/2022 07:36 EST MCH 20.0 pg 09/29/2022 07:36 EST MCHC 26.6 g/dL 09/29/2022 07:36 EST RDW-CV 21.5 % 09/29/2022 07:36 EST Platelets 203 K/mcL 09/29/2022 07:36 EST MPV 9.7 fL 09/29/2022 07:36 EST Neutro Auto 66.3 % 09/29/2022 07:36 EST Lymph Auto 19.9 % 09/29/2022 07:36 EST [place] Auto 8.4 % 09/29/2022 07:36 EST Eos, Auto 3.80 % 09/29/2022 07:36 EST Basophil Auto 1.1 % 09/29/2022 07:36 EST Imm Gran Auto 0.5 % 09/29/2022 07:36 EST Neutro Absolute 2.9 K/mcL 09/29/2022 07:36 EST Lymph Absolute 0.9 K/mcL 09/29/2022 07:36 EST [place] Absolute 0.4 K/mcL 09/29/2022 07:36 EST Eos Absolute 0.2 K/mcL 09/29/2022 07:36 EST Baso Absolute 0.0 K/mcL 09/29/2022 07:36 EST Imm Gran Absolute 0.02 09/29/2022 07:36 EST RBC Morph Abnormal 09/29/2022 07:36 EST Anisocyte 3+ 09/29/2022 07:36 EST Hypochromia 3+ 09/29/2022 07:36 EST Microcyte 2+ 09/29/2022 07:36 EST Plt Estimation Normal 09/29/2022 07:36 EST Poik 2+ 09/29/2022 07:36 EST Polychrom 1+ 09/29/2022 07:36 EST Stomatocyte 2+ 09/29/2022 07:36 EST Sodium Level 134 mmol/L 09/29/2022 07:36 EST Potassium Level 3.8 mmol/L 09/29/2022 07:36 EST Chloride Level 105 mmol/L 09/29/2022 07:36 EST CO2 22 mmol/L 09/29/2022 07:36 EST Alk Phos 76 IntlUnit/L 09/29/2022 07:36 EST AST 29 IntlUnit/L 09/29/2022 07:36 EST ALT 20 IntlUnit/L 09/29/2022 07:36 EST BUN 17 mg/dL 09/29/2022 07:36 EST Glucose Level 96 mg/dL 09/29/2022 07:36 EST Creatinine Level 0.70 mg/dL 09/29/2022 07:36 EST BUN/Creat Ratio 24.3 09/29/2022 07:36 EST Calcium Level 8.4 mg/dL 09/29/2022 07:36 EST Protein Total 6.7 g/dL 09/29/2022 07:36 EST Albumin Level 3.3 g/dL 09/29/2022 07:36 EST Globulin 3.4 09/29/2022 07:36 EST A/G Ratio 1.0 09/29/2022 07:36 EST Bilirubin Total 0.4 mg/dL 09/29/2022 07:36 EST Anion Gap 7.0 09/29/2022 07:36 EST Lipase Level 30 unit/L 09/29/2022 07:36 EST Osmolality 270 mOsm/kg 09/29/2022 07:36 EST eGFR CKD-EPI 112 mL/min/1.73 m2 09/29/2022 07:36 EST hCG Qual Serum Negative 09/29/2022 07:36 EST Ethanol Level <0.00 g/dL 09/29/2022 07:36 EST Instr Ethanol Lvl <5 mg/dL 09/29/2022 07:36 EST UA Color YELLOW. 09/29/2022 08:49 EST UA Appear SL CLOUDY 09/29/2022 08:49 EST UA Glucose NEGATIVE 09/29/2022 08:49 EST UA Bili NEGATIVE 09/29/2022 08:49 EST UA Ketones TRACE 09/29/2022 08:49 EST UA Spec Grav 1.015 09/29/2022 08:49 EST UA Blood NEGATIVE 09/29/2022 08:49 EST UA pH 7.50 09/29/2022 08:49 EST UA Protein NEGATIVE 09/29/2022 08:49 EST UA Urobilinogen 2.0 09/29/2022 08:49 EST UA Nitrite NEGATIVE 09/29/2022 08:49 EST UA Leuk Est TRACE 09/29/2022 08:49 EST UA Culture Ind?. No 09/29/2022 08:49 EST UA WBC 4-6 09/29/2022 08:49 EST UA RBC None Seen 09/29/2022 08:49 EST UA Squam Epithelial 6-10 09/29/2022 08:49 EST UA Bacteria 1+ 09/29/2022 08:49 EST UA Amorph Many 09/29/2022 08:49 EST Patient/Pharmacy Intake Coordinator Signature Patient Name:LEONOR RAMIREZ I have received this information and my questions have been answered. Patient/Pharmacy Intake Coordinator Name: Patient/Pharmacy Intake Coordinator Signature: Relationship to Patient: Witness Name/Signature: Date: Electronically Signed on: 09/29/2022 10:15 ESTSigned by:REGLA CT Abdomen and Pelvis W contrast IV * Heath Montes MD: VERIFY, VERIFY Event Display: Report EXAM DESCRIPTION: CT Abdomen and Pelvis w/ Contrast 09/29/2022 INDICATION: ABDOMINAL PAIN TECHNIQUE: All CT scans at this facility use at least one of these dose optimization techniques: Automated exposure control; mA and/or kV adjustment per patient size (includes targeted exams where dose is matched to clinical indication); or iterative reconstruction. Technique: Axial CT images of the abdomen/pelvis with IV contrast administration 100 cc of [id number]-[id number] contrast was utilized COMPARISON: None FINDINGS: No focal hepatic lesion. Normal enhancement of the main hepatic veins and main portal vein. Normal spleen size without focal mass No calcified gallstones in the gallbladder. Adrenal glands and pancreas appear within normal limits No focal renal mass, hydronephrosis or perinephric fluid collection on either side Normal caliber abdominal aorta. No retroperitoneal adenopathy in the abdomen or pelvis. Ovoid smoothly marginated fluid attenuation lesion in the right upper pelvis measuring 2.9 x 2.6 cm likely reflecting a right ovarian cyst. No bowel dilatation to suggest obstruction or ileus. No free intraperitoneal air, ascites or inflammatory changes. Normal appendix. Minimal subsegmental atelectasis or scarring in both lung bases No suspicious regional osseous lesions. IMPRESSION: Cystic lesion in the right upper pelvis most consistent with right ovarian cyst measuring 2.9 x 2.6 cm. Nonobstructive bowel pattern. No free air or inflammatory changes. Normal appendix. JOB #: [id number] Final Signed by: Heath Montes MD Signed (Electronic Signature): 09/29/2022 8:28 am US Abdomen limited * Heath Montes MD: VERIFY, VERIFY Event Display: Report EXAM DESCRIPTION: US Abdomen Limited 09/29/2022 INDICATION: RUQ PAIN TECHNIQUE: Grayscale and color Doppler ultrasound examination of the right upper quadrant region of the abdomen. COMPARISON: CT abdomen/pelvis examination from 09/29/2022, 0756 hours FINDINGS: Liver measures 16.4 cm in maximum dimension. Mild diffusely increased hepatic echogenicity suggesting mild hepatic steatosis. No focal hepatic lesion identified. No hepatic surface nodularity. The main portal vein is patent with normal flow direction No ascites in right upper quadrant The pancreas is partly obscured by overlying bowel gas. Visualized portions are unremarkable No cholelithiasis, gallbladder wall thickening or pericholecystic fluid accumulation. No biliary dilatation with common bile duct diameter of 5.9 mm Right kidney measures 10.6 cm in maximum dimension. No focal right renal mass, hydronephrosis or perinephric fluid collection. IMPRESSION: Findings suggesting mild hepatic steatosis. No focal hepatic lesion identified No cholelithiasis or biliary dilatation. JOB #: [id number] Final Signed by: Heath Montes MD Signed (Electronic Signature): 09/29/2022 9:58 am Patient Care team information Care Team Personnel Name: Michelle Lopez Position: Nurse Member Role: ED Nurse Name: Channing Jimenes DO Position: Physician Member Role: Attending Physician Address: Address: [address] [place] [id number] Name: Becka Umana Position: Nurse Member Role: ED Nurse Care Team Related Persons Name: LEONORA RAMIREZ
--- OUTSIDE RECORDS SUMMARY | 2023-08-22 12:38 | XMS_ITS | Continuity of Care Document ---
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 Encounter Diagnosis Abdominal pain(Discharge Diagnosis) - 10/03/22 Ovarian cyst(Discharge Diagnosis) - 10/03/22 Discharge Disposition: Home or Self Care Attending Physician: Heath Montaño MD Allergies, Adverse Reactions, Alerts Substance Reaction [...] currently is taking this medication. Functional Status 10/03/22 Other exposure to Infectious Disease Non e Medications Abilify 5 mg oral tablet 5 mg = 1 tab, Oral, Daily, 0 Refill(s) Start Date: 10/03/22 Status: Ordered acetaZOLAMIDE 250 mg oral tablet TAKE 1 [...] 0 Refill(s) Start Date: 10/03/22 Status: Ordered cyclobenzaprine 10 mg oral tablet 10 mg = 1 tab, Oral, TID, PRN pain, # 15 tab, 0 Refill(s) Start Date: 09/29/22 Status: Ordered cyclobenzaprine 10 mg oral tablet 10 mg = 1 tab, Oral, TID, PRN pain, # 15 tab, 0 Refill(s), Pharmacy: [id number], 167.64,cm, 09/29/22 7:16:00 EST, Height/Length Dosing, 77.56, kg, 09/29/22 7:16:00 EST, Weight Dosing Start Date: 09/29/22 Status: Ordered Dilaudid 2 mg oral tablet 2 mg = 1 tab, Oral, every 6 hr, PRN as needed for pain, # 8 tab, 0 Refill(s), Pharmacy: [id number], 167, cm, 10/01/22 10:20:00 EDT, Height/Length Dosing, 77.11, kg, 10/01/22 10:20:00 EDT, Weight Dosing Start Date: 10/03/22 Status: Ordered gabapentin 600 [...] Comple francisco 1bariatric surgery 3 years ago. molar extraction Results Laboratory List Name Date .Urinalysis POCT 10/03/22 Most recent to oldest [Reference Range]: 1 Specific [place], Ur POC 1.010 *NA* (10/03/22 4:28 PM) Specimen Color POC [Yellow] Light Yellow (10/03/22 4:28 PM) Glucose, Urine POC Negative mg/dL *NA* (10/03/22 4:28 PM) Bilirubin, Urine POC [Negative] Negative (10/03/22 4:28 PM) Ketones, Urine POC [Negative mg/dL] Nega tive mg/dL (10/03/22 4:28 PM) Blood, Urine POC [Negative] Negative (10/03/22 4:28 PM) pH, Urine POC 7.00 *NA* (10/03/22 4:28 PM) Protein, Urine POC [Negative mg/dL] Trac e mg/dL *ABN* (10/03/22 4:28 PM) Urobilinogen, Urine POC [0.2] 0.2 (10/03/22 4:28 PM) Nitrite, Urine POC [Negative] Negative (10/03/22 4:28 PM) Leuk Esterase, Urine POC [Negative] Trac e *ABN* (10/03/22 4:28 PM) Clarity, Urine POC [Clear] Clear (10/03/22 4:28 PM) Vital Signs Most recent to oldest [Reference Range]: 1 Temperature Tympanic [36.6-37.9 Deg C] 3 7.4 Deg C (10/03/22 3:05 PM) Blood Pressure [90-140/60-90 mmHg] 108/7 6mmHg (10/03/22 3:05 PM) Social History Social History Type Response Smoking Status Smoking tobacco use: Former tobacco user;Never entered on: 10/03/22 Sex Female Physician Outpatient Note * Heath Montaño MD: PERFORM Event Display: Office Clinic Note Physician Authored Date: [id number] LEONOR RAMIREZ Nivia :1980 Age:41 years Sex:Female Visit Date:10/03/2022 Primary Care Physician: Unavailable, Physician Chief Complaint Pain ovarian cyst, right. Pain wrapping to the back. Pinching/aching in right groin. Pain in the lower abdomen burning pain. Pain comes and goes, lately has become more constant. Last night took dilaudid. Nausea and vomiting. Confused. Negative for UTI. Additional Information Bleeding with intercourse - 2 weeks ago. Denies any bleeding today. History of Present Illness 41-year-old??G2, P2 presents today for ER follow-up. ??She??presented twice to the emergency department over the weekend with complaints of right lower quadrant pain.?? She states that the pain beganFriday night??and was severe.?? She rates the pain as 10 out of 10 on pain scale.?? She did have a CT of the abdomen and pelvis demonstrating a 3 cm??right ovarian cyst.?? She did present again??to the ER yesterday and had a pelvic ultrasound??again??visualizing the cyst on the right ovary??measuring 2.6 cm in greatest dimension.?? No free fluid was noted??and the remainder of the ultrasound was normal. ?? The patient denies any fevers or chills. ??She reports no changes in her bowel habits. ??She does report history of kidney stones and feels that her symptoms are not quite similar to that.?? Patient does have an extensive psychiatric history and is on??Abilify, Celexa, Seroquel??and gabapentin prescribed by her psychiatrist.?? She reports that her symptoms were relieved with Dilaudid??and was discharged with a prescription.?? It was presumed that her pain was related to a hemorrhagic cyst although she reports that her symptoms have not improved since Sunday. ?? Her history is significant for gastric bypass surgery 3 years ago with 110 pound weight loss.?? OB history significant for x2. ??She is here visiting her father from [place]. ??She is also noted to have a history of alcohol and drug abuse in the past. Review of Systems Constitutional:?No??fevers,?No??chills,?No??sweats Eye:?No??recent visual problems ENT:?No??ear pain,?No??nasal congestion,?No??sore throat Respiratory:?No??shortness of breath,?No??cough Cardiovascular:?No??Chest pain,?No??palpitations,?No??syncope Gastrointestinal:?Nonausea,?No??vomiting,?No??diarrhea Genitourinary:?No??hematuria Sonny/Lymph:?No??bruising tendency,?No??swollen lymph glands Endocrine:?No??excessive thirst,??No??excessive hunger Musculoskeletal:??No??back pain,??No??neck pain,??No??joint pain,??No??muscle pain,??No??decreased range of motion Integumentary:?No??rash,?No??pruritus,?No??abrasions Neurologic: Alert & oriented X 4 Psychiatric:?No??anxiety,?No??depression Physical Exam Vitals & Measurements T:??37.4?C ??(Tympanic)?? BP:??108/76?? General: Patient??acting in moderate distress in the position??on the exam table. Skin:??Skin is warm, dry and pink, no rashes or lesions. HEENT:??Normocephalic, ,normal hearing, moist oral mucosa. Abdomen: Soft. ??Tenderness to palpation in the right lower quadrant, without rebound or guarding. ??Negative Rovsing's, negative obturator Pelvic: Normal external genitalia. ??Normal vaginal mucosa. ??Moderate??tenderness in the right adnexa. ??No cervical motion tenderness. ??No abnormal discharge. ??Cervix grossly normal. ?? Of note at the conclusion of the exam??and office visit??the patient did appear to ambulate??normally and without??appearance of discomfort??when departing the office. Assessment/Plan 1.??Abdominal pain??R10.9 It is unclear as to the exact etiology of her abdominal pain.?The patient was accompanied by herfather who is a dentist??who both adamantly??insisted on management of her pain??with oral Dilaudid??reporting that this is the only thing that worked for her in the emergency department.?? She is planning to return??to [place]??to her regular physician in approximately 1 week.?? Her father reports that she does not have??health insurance that is excepted at this hospital and does not wish to undergo any other testing here for the time being. ? Ordered: Urine Dipstick Clinic POC (RE), 10/03/22 16:27:00 EDT, Abdominal pain, 10/03/22 16:27:00 EDT ?? 2.??Ovarian cyst??N83.209 I believe that the ovarian cyst noted on ultrasound is functional.?? She had declined transvaginal ultrasound while in the emergency department and I would recommend that if her pain persist that sheundergo transvaginal ultrasound to definitively rule out torsion??although this is less likely??with the small size of the cyst that was noted.?? The fact that her pain has not improved??also makes it less likely that this is a hemorrhagic ovarian cyst which normally would have improved in this period of time.?? I did reluctantly agree to provide her??2 days worth of??narcotic medication for pain??with the plan that she would follow-up??promptly if symptoms do not improve in the next day. ??Upon??being told that I would??ultimately prescribe her??some medication??she was able to ambulate??apparently without difficulty out of the office. ?? Orders: Dilaudid 2 mg oral tablet, 2 mg = 1 tab, Oral, every 6 hr, PRN as needed for pain, # 8 tab, 0 Refill(s), Pharmacy: [id number], 167, cm, 10/01/22 10:20:00 EDT, Height/Length Dosing, 77.11, kg, 10/01/22 10:20:00 EDT, Weight Dosing Problem List/Past Medical History Ongoing Alcohol use disorder Anxiety and depression Asthma Drug abuse Eating disorder Hemochromatosis HSV-1 infection Irritable bowel syndrome (IBS) PTSD (post-traumatic stress disorder) RUQ pain Vertigo Historical No qualifying data Procedure/Surgical History ???Colonoscopy???EGD - Esophagogastroduodenoscopy???Surgery???Tooth extraction Medications Abilify 5 mg oral tablet, 5 mg= 1 tab, Oral, Daily acetaZOLAMIDE 250 mg oral tablet ARIPiprazole 5 mg oral tablet, 5 mg= 1 tab, Oral, Daily CeleXA 40 mg oral tablet, 40 mg= 1 tab, Oral, Daily cyclobenzaprine 10 mg oral tablet, 10 mg= 1 tab, Oral, TID, PRN cyclobenzaprine 10 mg oral tablet, 10 mg= 1 tab, Oral, TID, PRN Dilaudid 2 mg oral tablet, 2 mg= 1 tab, Oral, every 6 hr, PRN gabapentin 600 mg oral tablet, 600 mg= 1 tab, Oral, TID hydrOXYzine pamoate 50 mg oral capsule LORazepam 1 mg oral tablet QUEtiapine 200 mg oral tablet, 200 mg= 1 tab, Oral, Daily Allergies Clopine Valium Xanax Amitriptyline Hydrochloride Effexor [...] disease: Mother. Pulmonary embolism: Father. Stroke: Mother. Lab Results Test Name Test Result Date/Time Specimen Color POC Light Yellow 10/03/2022 16:28 EDT Clarity, Urine POC Clear 10/03/2022 16:28 EDT Glucose, Urine POC Negative 10/03/2022 16:28 EDT Bilirubin, Urine POC Negative 10/03/2022 16:28 EDT Ketones, Urine POC Negative 10/03/2022 16:28 EDT Specific [place], Ur POC 1.010 10/03/2022 16:28 EDT pH, Urine POC 7.00 10/03/2022 16:28 EDT Protein, Urine POC Trace 10/03/2022 16:28 EDT Urobilinogen, Urine POC 0.2 10/03/2022 16:28 EDT Nitrite, Urine POC Negative 10/03/2022 16:28 EDT Blood, Urine POC Negative 10/03/2022 16:28 EDT Leuk Esterase, Urine POC Trace 10/03/2022 16:28 EDT Electronically Signed on 10/03/22 05:01 PM Heath Montaño MD Patient Care team information Care Team Personnel Name: Unavailable, Physician Position: No Access Member Role: Primary Care Physician Care Team Related Persons Name: LEONORA RAMIREZ Address: Home
[2023-08-22 16:05] LABS: Bacteria Many HPF (Negative); C & S Indicated? C&S Done As Ordered; Casts Negative LPF (Negative); Crystals Mod Calcium Oxalate HPF (Negative); Epithelial Cells Few HPF (Negative); Mucus Negative (Negative); RBC 0-2 HPF (0-2)
== END 2023-08-22 12:35 | disposition home or self-care (01) ==
LOC: LBN 12:34
PROVIDERS: PCP Internal Medicine; Visit Provider Physician Assistant Medical
DX: N89.8 Other specified noninflammatory disorders of vagina (principal); N76.0 Acute vaginitis; R82.998 Other abnormal findings in urine
CPT/HCPCS: 81015; 87086; 87480; 87510; 87660

== ENCOUNTER 2024-10-02 10:00 | Outpatient (REF) | payer MEDICAID, SELFPAY ==
[2024-10-02 15:41] LABS: Abs Immature Grans 0.02 10^3/uL (0.0-0.06); Absolute Basophil Count 0.05 10^3/uL (0.0-0.2); Absolute Eosinophil Count 0.12 10^3/uL (0.0-0.7); Absolute Lymphocyte Count 1.71 10^3/uL (1.2-3.4); Absolute Monocyte Count 0.43 10^3/uL (0.1-0.8); Absolute Neutrophil Count 4.22 10^3/uL (1.2-6.7); Basophils % 0.8 %; Eosinophils % 1.8 %; HCT 44.2 % (36.0-46.0); HGB 14.2 g/dL (11.2-15.7); Immature Grans % 0.3 %; Lymphocytes % 26.1 %; MCH 28.9 pg (27.0-33.0); MCHC 32.1 % (32.0-36.0); MCV 90 fL (80-95); MPV 9.9 fL (8.0-11.0); Monocytes % 6.6 %; Neutrophils % 64.4 %; Platelet Count 257 10^3/uL (130-400); RBC 4.91 10^6/uL (3.93-5.22); RDW 13.4 % (11.7-14.6); RDW-SD 44.3 fL; WBC 6.55 10^3/uL (4.4-10.8)
[2024-10-02 15:43] LABS: ESR 10 mm/hr (0-20)
[2024-10-02 15:53] LABS: Hemoglobin A1C 5.2 % (<5.7)
[2024-10-02 17:11] LABS: Iron 28 ug/dL (50-170); Total Iron Binding Capacity 364 ug/dL (250-450); Transferrin Sat 8 % (15-50)
[2024-10-02 17:20] LABS: ALT 24 U/L (14-59); AST 23 U/L (15-37); Albumin 3.3 g/dL (3.4-5.0); Alkaline Phosphatase 139 U/L (46-116); BUN 11 mg/dL (7-18); Bilirubin, Total 0.3 mg/dL (0.2-1.0); CREATININE 0.7 mg/dL (0.55-1.02); Calcium 8.9 mg/dL (8.5-10.1); Calculated LDL 118 mg/dL (<100); Chloride 108 mmol/L (98-107); Cholesterol 220 mg/dL (<200); Estimated GFR 110.67 (mL/min/1.73m2); Folate 5.3 ng/mL (8.6-20.0); Glucose 98 mg/dL (74-106); HDL Cholesterol 53 mg/dL (>or=50); Potassium 4.3 mmol/L (3.5-5.1); Sodium 142 mmol/L (136-145); T4 3.8 ug/dL (4.7-13.3); TSH 1.45 uIU/mL (0.36-3.74); Total Protein 6.8 g/dL (6.4-8.2); Triglyceride 248 mg/dL (<150); Vitamin B12 364 pg/mL (193-986); Vitamin D 25 Total 34 ng/mL (30-100)
[2024-10-02 17:45] LABS: C-Reactive Protein < 0.50 mg/dL (<or=0.5)
[2024-10-02 21:55] LABS: Rheumatoid Factor <8.6 IU/mL (<12.0)
[2024-10-02 22:25] LABS: T3, Total 128 ng/dL (97-169)
[2024-10-03 14:06] LABS: ANA Interpretation Negative (Negative)
== END 2024-10-02 10:01 | disposition home or self-care (01) ==
LOC: NCHCN 10:00
PROVIDERS: PCP Internal Medicine; Visit Provider Family Medicine
DX: Z98.84 Bariatric surgery status (principal); G89.4 Chronic pain syndrome; Z13.1 Encounter for screening for diabetes mellitus; Z13.220 Encounter for screening for lipoid disorders; Z13.29 Encounter for screening for other suspected endocrine disorder
CPT/HCPCS: 80053; 80061; 82306; 85652; 82607; 82746; 83036; 83540; 83550; 84436; 84443; 84480; 85025; 86038; 86140; 86431

== ENCOUNTER 2025-01-07 11:11 | Observation (INO) | payer MEDICAID, SELFPAY ==
[2025-01-07] VITALS (27 sets, daily range): BP systolic 109–148; BP diastolic 65–119; PULSE 82–117; RESP 10–25; TEMP 36.4–36.8; O2SAT 95–100
--- NOTE | 2025-01-07 11:00 | RT.EKG_ITS ---
APPROVED REPORT Exam: Resting ECG Reason for Exam: Chest Pain Patient Location: E HR:120 bpm ECG Measurements Heart Rate 120 AXIS SC 148 P 59 QRSd 90 QRS 10 QT 343 T 40 QTc 485 Conclusion Sinus tachycardia...rate> 99 Probable left atrial enlargement...P >50mS, <-0.10mV V1 I have reviewed and interpreted ECG and agree with software generated interpretation.
[2025-01-07 11:42] LABS: Bilirubin Negative (Negative); Blood Negative (Negative); Clarity Sl Cloudy (Clear); Glucose Negative (Negative); Ketones Negative (Negative); Leukocyte Esterase Negative (Negative); Nitrite Negative (Negative)
[2025-01-07 11:44] LABS: Abs Immature Grans 0.01 10^3/uL (0.0-0.06); Absolute Basophil Count 0.04 10^3/uL (0.0-0.2); Absolute Eosinophil Count 0.14 10^3/uL (0.0-0.7); Absolute Lymphocyte Count 1.76 10^3/uL (1.2-3.4); Absolute Monocyte Count 0.41 10^3/uL (0.1-0.8); Absolute Neutrophil Count 3.11 10^3/uL (1.2-6.7); Basophils % 0.7 %; Eosinophils % 2.6 %; HCT 41.7 % (36.0-46.0); HGB 12.7 g/dL (11.2-15.7); Immature Grans % 0.2 %; Lymphocytes % 32.2 %; MCH 27.6 pg (27.0-33.0); MCHC 30.5 % (32.0-36.0); MCV 91 fL (80-95); Monocytes % 7.5 %; Neutrophils % 56.8 %; RDW 14.5 % (11.7-14.6); RDW-SD 47.8 fL; WBC 5.47 10^3/uL (4.4-10.8)
[2025-01-07 11:45] LABS: BE (Venous) -9 mmol/L (-2-3); HCO3 (Venous) 17 mmol/L (23-28); TCO2 (Venous) 16 mmol/L (24-29); pCO2 (Venous) 33 mmHg (41-51); pH (Venous) 7.33 (7.31-7.41); pO2 (Venous) 126 mmHg
[2025-01-07] MEDS: Lactated Ringers 1,000 ML 1000 ML IV (11:54)
[2025-01-07] MEDS: chlordiazePOXIDE 25 MG CAP 100 MG PO (11:54)
[2025-01-07 12:07] LABS: ALT 33 U/L (14-59); AST 33 U/L (15-37); Albumin 3.2 g/dL (3.4-5.0); Alkaline Phosphatase 108 U/L (46-116); Anion Gap 15.1 mmol/L (3-11); BUN 10 mg/dL (7-18); Bilirubin, Total 0.4 mg/dL (0.2-1.0); CO2 19.9 mmol/L (21.0-32.0); CREATININE 0.7 mg/dL (0.55-1.02); Calcium 8.6 mg/dL (8.5-10.1); Chloride 106 mmol/L (98-107); Estimated GFR 109.98 (mL/min/1.73m2); Glucose 104 mg/dL (74-106); Lipase 29 U/L (<78); Potassium 3.8 mmol/L (3.5-5.1); Sodium 141 mmol/L (136-145)
--- NOTE | 2025-01-07 12:11 | W.ED.GENAD ---
Discharge Plan Disposition Patient Disposition: Admit to [facility] Condition: Stable Discharge Details Clinical Impression: Alcohol withdrawal Admit Date/Time: 01/07/25 14:23 Admit Provider: Armond Grier Attending Provider: Armond Grier Primary Care Provider: Benrabe Tomlinson ED Provider: Abelardo Bass Home Meds and New Rx's Prescriptions: No Action aripiprazole 5 mg tablet 10 mg PO DAILY gabapentin 300 mg capsule 1,200 mg PO TID quetiapine 400 mg tablet 200 mg PO QHS methocarbamol 750 mg tablet 750 mg PO TID prazosin 2 mg capsule 2 mg PO QHS Rx Instructions: for interrupted sleep and nightmares thiamine HCl (vitamin B1) 100 mg tablet 100 mg PO DAILY topiramate 25 mg tablet 50 mg PO BID acetazolamide 250 mg tablet 250 mg PO BID acetylcysteine 600 mg capsule 1,200 mg PO BID albuterol sulfate 90 mcg/actuation HFA aerosol inhaler 1 - 2 puff inhalation .Q4-6H PRN citalopram 40 mg tablet 40 mg PO DAILY fluticasone propionate 50 mcg/actuation spray,suspension 2 spray intranasal DAILY Rx Instructions: administer into each nostril Headache Relief (EWW-fcgy-bix) 250-250-65 mg tablet 2 tab PO DAILY PRN hydroxyzine pamoate 50 mg capsule 100 mg PO BID PRN magnesium oxide 400 mg magnesium tablet 400 mg PO DAILY melatonin 10 mg tablet 10 mg PO HS HPI General Date/Time Provider Initiated Documentation: 01/07/25 11:22. HPI Narrative: 44-year-old female with a past medical history significant for chronic alcoholism and multiple admissions and episodes of withdrawal, who has never had seizures from withdrawal, who presents today for evaluation of alcohol withdrawal. Patient states that she has been drinking about 1/2-1/3 of a gallon of vodka every day for the past several months, she stopped drinking about 30 hours ago. Since then she has had extreme anxiety, shakiness, headache, mild shortness of breath and anxiety and tremors. She denies visual changes or auditory visual hallucinations. She admits to nausea but denies any vomiting. She denies any current diarrhea. She denies any chest pain. No other complaints at this time. No other modifying factors. She states that she is looking to get help and rehab. Related Data Home Medications ?Medication ?Instructions ?Recorded ?Confirmed acetazolamide 250 mg tablet 250 mg PO BID 11/04/24 01/07/25 acetylcysteine 600 mg capsule 1,200 mg PO BID 11/04/24 01/07/25 albuterol sulfate 90 mcg/actuation 1 - 2 puff inhalation .Q4-6H PRN 11/04/24 01/07/25 aerosol inhaler aripiprazole 5 mg tablet 10 mg PO DAILY 11/04/24 01/07/25 krnshyn-xzogyalxxnvsv-slcudvqt 250 2 tab PO DAILY PRN 11/04/24 01/07/25 mg-250 mg-65 mg tablet (Headache Relief (ULA-eyoiqixqimds-sizwripw)) citalopram 40 mg tablet 40 mg PO DAILY 11/04/24 01/07/25 fluticasone propionate 50 2 spray intranasal DAILY 11/04/24 01/07/25 mcg/actuation nasal spray,suspension gabapentin 300 mg capsule 1,200 mg PO TID 11/04/24 01/07/25 hydroxyzine pamoate 50 mg capsule 100 mg PO BID PRN 11/04/24 01/07/25 magnesium oxide 400 mg PO DAILY 11/04/24 01/07/25 melatonin 10 mg tablet 10 mg PO HS 11/04/24 01/07/25 methocarbamol 750 mg tablet 750 mg PO TID 11/04/24 01/07/25 prazosin 2 mg capsule 2 mg PO QHS 11/04/24 01/07/25 quetiapine 400 mg tablet 200 mg PO QHS 11/04/24 01/07/25 thiamine HCl (vitamin B1) 100 mg 100 mg PO DAILY 11/04/24 01/07/25 tablet topiramate 25 mg tablet 50 mg PO BID 11/04/24 01/07/25 Allergies Allergy/AdvReac Type Severity Reaction Status Date / Time amitriptyline Allergy Severe Numbness Verified 01/07/25 15:24 of Tongue clonazepam Allergy Unknown Stomach Verified 01/07/25 15:24 Upset diazepam Allergy Unknown Abd.Pain Verified 01/07/25 15:24 hydrochlorothiazide Allergy Unknown Dizziness, Verified 01/07/25 15:24 Hypotension hydroxyzine Allergy Unknown Fatigue Verified 01/07/25 15:24 paroxetine Allergy Unknown Insomnia, Verified 01/07/25 15:24 Lightheadedness propranolol Allergy Unknown Dizziness Verified 06/18/25 15:24 venlafaxine HCl (From Allergy Unknown Agitation Verified 01/07/25 15:24 Effexor) bupropion Allergy Anxiety Verified 01/07/25 15:24 gabapentin Allergy Unknown Verified 01/07/25 15:24 lamotrigine (From Lamictal) Allergy Other (See Verified 01/07/25 15:24 Comment) olanzapine (From Zyprexa) Allergy Unknown Verified 01/07/25 15:24 alprazolam (From Xanax) AdvReac Unknown anxiety Verified 01/07/25 15:24 naltrexone AdvReac Unknown diarrhea, Verified 01/07/25 15:24 nausea prednisone AdvReac Unknown heart Verified 01/07/25 15:24 racing General Stated Complaint: ETOHWithdr OMAR: 3 Exam Narrative Exam Narrative: 1.Const: Well-nourished, Well-developed, appearing stated age 2.Eyes: PERRL, no conjunctival injection, and symmetrical lids. 3.ENT: Atraumatic external nose and ears. Dry MM. Neck: Symmetric, trachea midline, No thyromegaly. 4.CVS: +S1/S2, Peripheral pulses 2+ and equal in all extremities. Brisk capillary refill in all extremities. 5.RESP: Unlabored respiratory effort. Clear to auscultation bilaterally. No wheezes rales or rhonchi 6.GI: Soft, Nontender/Nondistended, No hepatosplenomegaly. No guarding or rebound. 7.MSK: Normocephalic/Atraumatic, Extremities w/o deformity or ttp No cyanosis or clubbing, Normal movement of all extremities, quite shaky with a notable tremor 8.Skin: Warm, Dry. No rashes or lesions. 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 Sensation grossly intact, no focal neurologic deficits. 10.Psych: (AAO) x3. Chest, nervous appearing. Quite shaky. Course Vital Signs Vital signs: Vital Signs Temperature 36.8 C 01/07/25 11:13 Pulse 117 H 01/07/25 11:13 Respiratory Rate 15 01/07/25 11:13 Blood Pressure 131/83 01/07/25 11:13 Pulse Oximetry 98 01/07/25 11:13 Temperature 36.8 C 01/07/25 11:13 Temperature Source Oral 01/07/25 11:13 Pulse 90 01/07/25 12:00 Pulse 90 01/07/25 12:00 Respiratory Rate 16 01/07/25 12:00 Respiratory Pattern Normal 01/07/25 11:57 Blood Pressure 148/119 H 01/07/25 11:31 Blood Pressure Mean 127 01/07/25 11:31 Blood Pressure Position Sitting 01/07/25 11:13 Pulse Oximetry 97 01/07/25 12:00 Oxygen Delivery Method Room Air 01/07/25 11:13 Oxygen Flow Rate 0 01/07/25 11:13 Lab/Test Results Lab/Test Results: Laboratory Tests Range/Units 01/07/25 11:37 VBG pH (7.31-7.41) 7.33 VBG pCO2 (41-51) mmHg 33 L VBG pO2 mmHg 126 VBG HCO3 (23-28) mmol/L 17 L VBG Total CO2 (24-29) mmol/L 16 L VBG O2 Saturation Not Applicable VBG Base Excess (-2-3) mmol/L -9 L Sodium (136-145) mmol/L 141 Potassium (3.5-5.1) mmol/L 3.8 Chloride (98-107) mmol/L 106 Carbon Dioxide (21.0-32.0) mmol/L 19.9 L Anion Gap (3-11) mmol/L 15.1 H BUN (7-18) mg/dL 10 Creatinine (0.55-1.02) mg/dL 0.7 Est GFR (CKD-EPI 2020) (mL/min/1.73m2) 109.98 Glucose (74-106) mg/dL 104 Calcium (8.5-10.1) mg/dL 8.6 Magnesium (1.8-2.4) mg/dL 2.0 Total Bilirubin (0.2-1.0) mg/dL 0.4 AST (15-37) U/L 33 ALT (14-59) U/L 33 Alkaline Phosphatase (46-116) U/L 108 Total Protein (6.4-8.2) g/dL 7.0 Albumin (3.4-5.0) g/dL 3.2 L Lipase (<78) U/L 29 POC- Test(urine) Negative Medical Decision Making 44-year-old female with a past medical history significant for chronic alcoholism and multiple admissions and episodes of withdrawal, who has never had seizures from withdrawal, who presents today for evaluation of alcohol withdrawal. Patient states that she has been drinking about 1/2-1/3 of a gallon of vodka every day for the past several months, she stopped drinking about 30 hours ago. Since then she has had extreme anxiety, shakiness, headache, mild shortness of breath and anxiety and tremors. She denies visual changes or auditory visual hallucinations. She admits to nausea but denies any vomiting. She denies any current diarrhea. She denies any chest pain. No other complaints at this time. No other modifying factors. She states that she is looking to get help and rehab. Physical exam demonstrates CIWA score around 12, with notable tremulousness shakiness and anxiety. I suspect her alcohol level is low at this time, she is transitioning out of her withdrawals however with her significant history of withdrawals this may be a prolonged component or combination of chronic anxiety in combination with withdrawals. In addition to that this patient may be appropriate for outpatient management. We will start with chlordiazepoxide 100 mg, rehydrate, monitor closely and reassess. 3:52 PM On reassessment patient is still notably anxious, she was given an additional dose of chlordiazepoxide for a total of 150 mg. Despite this she still remains quite tremulous which is easily notable with an outstretched hand. She is still quite anxious and does not feel any significant improvement. CIWA scores between 8 and 10 at this time. With the continued symptomatology we have 150 mg of chlordiazepoxide I do feel that she would benefit from inpatient admission for symptom mitigation. We will start phenobarbital at the lower dosing regimen. Medical management. Remains hemodynamically stable and shows no white count bandemia or left shift. Patient does have mild anion gap elevation at 15, no acidosis though. Patient is being rehydrated. Discussed the case with hospitalist Dr. Grier, he agrees with the assessment and plan. I have extensively reviewed the treatment plan with the patient. I have addressed all patient concerns at this time. I have also discussed the plan with the admitting physician and they agree with the current assessment and plan and have agreed to assume responsibility for the patient. All parties demonstrate verbal understanding and agreement with our assessment and plan at this time. The documentation in this chart was dictated using [employer] dictation software. Please excuse any dictation errors. Critical Care Time Critical Care Time Critical Care Time: Yes Total Critical Care Time: 45 Attestation: Upon my evaluation, this patient had a high probability of imminent or life-threatening deterioration, which required my direct attention, intervention, and personal management. I have personally provided 45 minutes of critical care time exclusive of time spent on separately billable procedures. Time includes review of laboratory data, radiology results, discussion with consultants, and monitoring for potential decompensation. Interventions were performed as documented. PFSH All Active Problems (Updated 01/07/25 @ 15:55 by Abelardo Bass DO) Alcohol withdrawal (Acute) Chronic pain (Chronic) Depression (Chronic) On deep vein thrombosis (DVT) prophylaxis (Acute) Alcohol abuse with withdrawal (Acute) Auditory complaints of right ear (Acute) ENT complaint (Acute) Perimenopausal (Acute) Unspecified eustachian tube disorder, right ear (Acute) Medical History (Updated 01/07/25 @ 15:55 by Abelardo Bass DO) Rosacea Chronic insomnia Myofascial pain syndrome Chronic headache disorder Meniere's disease Chronic pain syndrome Alcoholism Mood disorder Iron deficiency anemia Obesity HLD (hyperlipidemia) Folic acid deficiency Surgical History (Updated 11/04/24 @ 09:54 by Patricia Wade RN) History of bariatric surgery Family History Father Neoplasm Squamous Cell Mother Essential hypertension Hemochromatosis Hyperlipidemia Neoplasm Thyroid Meniere's disease Social History Smoking/Tobacco Use Status: Never Smoking risk assessment performed?: Yes Alcohol Intake: current Alcohol Intake frequency: 3 or more drinks per day Alcohol type: hard liquor Drug use: Never Substance use type: does not use Do you feel safe in your relationship?: Yes PAWSS Have you Been Recently Intoxicated or Drunk Within the Last 30 days?: Yes Have you Ever Experienced Previous Episodes of Alcohol Withdrawal?: Yes Have you ever Experienced Withdrawal Seizures?: No Have you ever Experienced Delirium Tremens(DT)s?: No Have you ever undergone Alcohol Rehabilitation Treatment (i.e, inpt ot outpatient treatment programs)?: Yes Have you ever Experienced Blackouts?: Yes Have you ever Combined Alcohol with other Downers within the last 90 days?: Yes Have you ever Combined Alcohol with any other Substance of Abuse during the last 90 days?: Yes Evidence of Increased Autonomic Activity (i.e. HR>120, tremor, sweating, agitation, nausea)?: Yes Result: 7
[2025-01-07 12:15] LABS: PTT Activated 21.2 sec (20.6-30.2); Prothrombin Time 9.9 sec (9.1-11.1)
[2025-01-07] MEDS: ACETAMINOPHEN 1,000 MG/100 ML BAG 400 MG IVPB (12:22)
[2025-01-07 12:29] LABS: ETHANOL BLOOD < 3.0 mg/dL (<10)
[2025-01-07] MEDS: Ondansetron 4 MG/2 ML VIAL IVP (12:56)
[2025-01-07] MEDS: chlordiazePOXIDE 25 MG CAP 50 MG PO (12:56)
[2025-01-07] MEDS: PHENobarbital 140 MG in Normal Saline 50 ML 100 MG IVPB ×2 (14:06→17:28)
[2025-01-07] MEDS: Normal Saline Flush 10 ML SYR IVP ×4 (14:07→20:47)
--- NOTE | 2025-01-07 14:17 | W.PM.HP.N ---
Date of service: 01/07/25 Time of Service: 14:17 Assessment and Plan Assessment and plan (1) Alcohol abuse with withdrawal: Status: Acute Assessment and plan: Librium failed in the ED dizziness could be d/t meniere's as the patient was able to stop tremors to execute fine movements Will continue phenobarbital at 6 mg /kg loading dose And PRN IVP phenobartbital soft stop = 890 mg, hard stop = 1186 mg--Calculated by pharmacist Will hold sedating RX Nausea- vomiting : treat with PRN compaizine , on clear liquids as tolerated (2) Meniere's disease: Assessment and plan: Continue home meds regimen (3) Depression: Status: Chronic Assessment and plan: Continue home meds (4) Chronic pain: Status: Chronic Assessment and plan: Start PRN ibuprofen and continue home medicine regimen (5) Obesity: Assessment and plan: Chief Load Dispatcher in weight management and encourage to discuss GLP-1 inhibitors with PCP (6) HLD (hyperlipidemia): Assessment and plan: As per labs on 09/2024 No statin listed (7) On deep vein thrombosis (DVT) prophylaxis: Status: Acute Assessment and plan: ON LMWH Discussed with Dr. Greir History of Present Illness History of Present Illness Chief Complaint: Shaking, dizziness, nausea, vomiting , ETOH withdrawal Narrative: This 44 years old female patient with a past medical history of alcohol and nicotine dependence, morbid obesity, iron deficiency anemia, meniere disease, HLD, myofacial pain syndrone presented to the ED for shaking, dizziness,headache, nausea, vomiting,epigastric abdominal pain, diarrhea; last alcoholic drink reported at 03 AM. Denied hematemesis, chest pain, dysuria, hematochezia, sick contact, Hx of GIB, [place]. Work-up in the ED was positive for HCO3 17 with a VBG PH of 7.33, anion gap of 15. ETOH level was negative.Blood work otherwise unremarkable. No imaging taken. Phenobarbital initiated in the ED s/p failed oral librium for discharge. The hospitalist was consulted and the patient was admitted to the surgical medical floor for ETOH withdrawal and compensated anion gap metabolic acidosis. Full code status confirmed Review of Systems All systems reviewed & are unremarkable except as noted in HPI and below PFSH All Active Problems (Updated 01/07/25 @ 15:14 by Joleen Aguilar APRN) Chronic pain (Chronic) Depression (Chronic) On deep vein thrombosis (DVT) prophylaxis (Acute) Alcohol abuse with withdrawal (Acute) Auditory complaints of right ear (Acute) ENT complaint (Acute) Perimenopausal (Acute) Unspecified eustachian tube disorder, right ear (Acute) Medical History (Updated 01/07/25 @ 15:14 by Jolene Aguilar APRN) Rosacea Chronic insomnia Myofascial pain syndrome Chronic headache disorder Meniere's disease Chronic pain syndrome Alcoholism Mood disorder Iron deficiency anemia Obesity HLD (hyperlipidemia) Folic acid deficiency Surgical History (Updated 11/04/24 @ 09:54 by Patricia Wade RN) History of bariatric surgery Family History Father Neoplasm Squamous Cell Mother Essential hypertension Hemochromatosis Hyperlipidemia Neoplasm Thyroid Meniere's disease Social History Smoking/Tobacco Use Status: Never Smoking risk assessment performed?: Yes Alcohol Intake: current Alcohol Intake frequency: 3 or more drinks per day Alcohol type: hard liquor Drug use: Never Substance use type: does not use Do you feel safe in your relationship?: Yes Meds Allergies and Home Medications Allergies Allergy/AdvReac Type Severity Reaction Status Date / Time amitriptyline Allergy Severe Numbness Verified 01/07/25 15:24 of Tongue clonazepam Allergy Unknown Stomach Verified 01/07/25 15:24 Upset diazepam Allergy Unknown Abd.Pain Verified 01/07/25 15:24 hydrochlorothiazide Allergy Unknown Dizziness, Verified 01/07/25 15:24 Hypotension hydroxyzine Allergy Unknown Fatigue Verified 01/07/25 15:24 paroxetine Allergy Unknown Insomnia, Verified 01/07/25 15:24 Lightheadedness propranolol Allergy Unknown Dizziness Verified 01/07/25 15:24 venlafaxine HCl (From Allergy Unknown Agitation Verified 01/07/25 15:24 Effexor) bupropion Allergy Anxiety Verified 01/07/25 15:24 gabapentin Allergy Unknown Verified 01/07/25 15:24 lamotrigine (From Lamictal) Allergy Other (See Verified 01/07/25 15:24 Comment) olanzapine (From Zyprexa) Allergy Unknown Verified 01/07/25 15:24 alprazolam (From Xanax) AdvReac Unknown anxiety Verified 01/07/25 15:24 naltrexone AdvReac Unknown diarrhea, Verified 01/07/25 15:24 nausea prednisone AdvReac Unknown heart Verified 01/07/25 15:24 racing Home Medications ?Medication ?Instructions ?Recorded ?Confirmed ?Type acetazolamide 250 mg tablet 250 mg PO BID 11/04/24 01/07/25 History acetylcysteine 600 mg capsule 1,200 mg PO BID 11/04/24 01/07/25 History albuterol sulfate 90 mcg/actuation 1 - 2 puff inhalation .Q4-6H PRN 11/04/24 01/07/25 History aerosol inhaler aripiprazole 5 mg tablet 10 mg PO DAILY 11/04/24 01/07/25 History gzaotps-eljzrftwnrgze-ucngyuxj 250 2 tab PO DAILY PRN 11/04/24 01/07/25 History mg-250 mg-65 mg tablet (Headache Relief ([id number])) citalopram 40 mg tablet 40 mg PO DAILY 11/04/24 01/07/25 History fluticasone propionate 50 2 spray intranasal DAILY 11/04/24 01/07/25 History mcg/actuation nasal spray,suspension gabapentin 300 mg capsule 1,200 mg PO TID 11/04/24 01/07/25 History hydroxyzine pamoate 50 mg capsule 100 mg PO BID PRN 11/04/24 01/07/25 History magnesium oxide 400 mg PO DAILY 11/04/24 01/07/25 History melatonin 10 mg tablet 10 mg PO HS 11/04/24 01/07/25 History methocarbamol 750 mg tablet 750 mg PO TID 11/04/24 01/07/25 History prazosin 2 mg capsule 2 mg PO QHS 11/04/24 01/07/25 History quetiapine 400 mg tablet 200 mg PO QHS 11/04/24 01/07/25 History thiamine HCl (vitamin B1) 100 mg 100 mg PO DAILY 11/04/24 01/07/25 History tablet topiramate 25 mg tablet 50 mg PO BID 11/04/24 01/07/25 History Exam Narrative Exam Narrative: morbidly obese 44 yo female, looking older than sated age, in no acute distress, sleepy but arousal, alert and oriented X4, neurologically intact, upper extremity tremors on extension but eliminated with purposeful fine motion, clears lung, S1, S2, no murmur, PPPX4, moves all 4 ext. Results Labs 01/07/25 11:37 01/07/25 11:37 Labs: Laboratory Results - last 24 hr 01/07/25 01/07/25 01/07/25 11:30 11:37 11:52 WBC 5.47 RBC 4.60 Hgb 12.7 Hct 41.7 MCV 91 MCH 27.6 MCHC 30.5 L RDW 14.5 Plt Count MPV Immature Gran % 0.2 Neutrophils % 56.8 Lymphocytes % 32.2 Monocytes % 7.5 Eosinophils % 2.6 Basophils % 0.7 Nucleated RBC % 0.0 Absolute Neutrophils 3.11 Absolute Lymphocytes 1.76 Absolute Monocytes 0.41 Absolute Eosinophils 0.14 Absolute Basophils 0.04 PT 9.9 INR 1.0 APTT 21.2 VBG pH 7.33 VBG pCO2 33 L VBG pO2 126 VBG HCO3 17 L VBG Total CO2 16 L VBG O2 Saturation Not Applicable VBG Base Excess -9 L Sodium 141 Potassium 3.8 Chloride 106 Carbon Dioxide 19.9 L Anion Gap 15.1 H BUN 10 Creatinine 0.7 Est GFR (CKD-EPI 2020) 109.98 Glucose 104 Calcium 8.6 Magnesium 2.0 Total Bilirubin 0.4 AST 33 ALT 33 Alkaline Phosphatase 108 Total Protein 7.0 Albumin 3.2 L Lipase 29 Urine Color Yellow Urine Clarity Sl Cloudy Urine pH 7.0 Ur Specific [place] 1.020 Urine Protein Negative Urine Ketones Negative Urine Blood Negative Urine Nitrite Negative Urine Bilirubin Negative Urine Urobilinogen 1.0 H Ur Leukocyte Esterase Negative Urine Glucose Negative Ethyl Alcohol < 3.0 Last Vital Signs Temp 36.8 C 01/07/25 11:13 Pulse 82 01/07/25 14:00 Resp 14 01/07/25 14:00 BP 127/85 01/07/25 12:01 Pulse Ox 98 01/07/25 14:00 PAWSS Have you Been Recently Intoxicated or Drunk Within the Last 30 days?: Yes Have you Ever Experienced Previous Episodes of Alcohol Withdrawal?: Yes Have you ever Experienced Withdrawal Seizures?: No Have you ever Experienced Delirium Tremens(DT)s?: No Have you ever undergone Alcohol Rehabilitation Treatment (i.e, inpt ot outpatient treatment programs)?: Yes Have you ever Experienced Blackouts?: Yes Have you ever Combined Alcohol with other Downers within the last 90 days?: Yes Have you ever Combined Alcohol with any other Substance of Abuse during the last 90 days?: Yes Evidence of Increased Autonomic Activity (i.e. HR>120, tremor, sweating, agitation, nausea)?: Yes Result: 7 Time Spent Time spent with Patient: >75 minutes Time was spent: preparing to see the patient(eg.review tests), obtaining and/or reviewing separately otained hiistory, ordering medications,tests, procedures, referring, communicating with other health care professional, indepentently interpreting results, counseling the patient and care coordination
--- NOTE | 2025-01-07 16:16 | W.PC.ACHO ---
Registration Status: ADM IN Primary Language: Preferred Language: Albanian ED Information & Data Chief Complaint ETOHWithdr 01/07/25 12:13 Triage Note PT reports chest pain, SoB, 01/07/25 11:13 anxiety, tremors, bouts of diaphoresis over the last 2 days. PT reports that she has been drinking 1/4 to 1/3 a gallon of vodka every day for the past several months . Stopped drinking yesterday . Medical / Surgical History (Last Updated 12/30/24 @ 15:17 by Parul Mccormick NP) Rosacea Chronic insomnia Myofascial pain syndrome Chronic headache disorder Meniere's disease Chronic pain syndrome Alcoholism Mood disorder Iron deficiency anemia Obesity HLD (hyperlipidemia) Folic acid deficiency (Last Updated 11/04/24 @ 09:54 by Patricia Wade RN) History of bariatric surgery Most Recent Vital Signs Temperature 97.5 F L 01/07/25 15:50 Temperature Source Temporal Artery Scan 01/07/25 15:50 Pulse 107 H 01/07/25 15:50 Pulse Rhythm Regular 01/07/25 15:50 Pulse 89 01/07/25 15:10 Respiratory Rate 20 01/07/25 15:50 Respiratory Effort Normal, Non-Labored 01/07/25 15:50 Respiratory Depth Normal 01/07/25 15:50 Respiratory Pattern Normal 01/07/25 15:50 Blood Pressure 109/74 01/07/25 15:50 Blood Pressure Mean 85 01/07/25 15:50 Blood Pressure Position Sitting 01/07/25 11:13 Pulse Oximetry 95 01/07/25 15:50 Oxygen Delivery Method Room Air 01/07/25 15:50 Oxygen Flow Rate 0 01/07/25 15:50 Pain Level 2 01/07/25 15:50 Allergies amitriptyline Allergy (Severe, Verified 01/07/25 15:24) Numbness of Tongue [facility] clonazepam Allergy (Unknown, Verified 01/07/25 15:24) Stomach Upset [facility] diazepam Allergy (Unknown, Verified 01/07/25 15:24) Abd.Pain [facility] hydrochlorothiazide Allergy (Unknown, Verified 01/07/25 15:24) Dizziness, Hypotension [facility] hydroxyzine Allergy (Unknown, Verified 01/07/25 15:24) Fatigue [facility] paroxetine Allergy (Unknown, Verified 01/07/25 15:24) Insomnia, Lightheadedness [facility] propranolol Allergy (Unknown, Verified 01/07/25 15:24) Dizziness [facility] venlafaxine HCl (From Effexor) Allergy (Unknown, Verified 01/07/25 15:24) Agitation [facility] bupropion Allergy (Verified 01/07/25 15:24) Anxiety [facility] gabapentin Allergy (Verified 01/07/25 15:24) Unknown 12/29/24- pt taking, no issues lamotrigine (From Lamictal) Allergy (Verified 01/07/25 15:24) Other (See Comment) 12/29/24- pt reports lightheadedness/ nausea olanzapine (From Zyprexa) Allergy (Verified 01/07/25 15:24) Unknown alprazolam (From Xanax) Adverse Reaction (Unknown, Verified 01/07/25 15:24) anxiety naltrexone Adverse Reaction (Unknown, Verified 01/07/25 15:24) diarrhea, nausea prednisone Adverse Reaction (Unknown, Verified 01/07/25 15:24) heart racing Active Medications Generic Name Dose Route Start Last Admin Trade Name Freq PRN Reason Stop Dose Admin Sodium Chloride 0 ml 01/07/25 11:26 01/07/25 14:07 Normal Saline Flush 10 Ml Syr IVP 10 ml PRN PRN Administration IV IV Catheter Type [Left Peripheral IV Antecubital] IV Catheter Gauge [Left 18 Antecubital] Diet Orders Category Date Time Status Heart Healthy Eating [DIET] Nutrition 01/07/25 Dinner Active Diagnostics 01/07/25 01/07/25 01/07/25 Range/Units 11:52 11:37 11:30 WBC 5.47 (4.4-10.8) 10^3/uL RBC 4.60 (3.93-5.22) 10^6/uL Hgb 12.7 (11.2-15.7) g/dL Hct 41.7 (36.0-46.0) % MCV 91 (80-95) fL MCH 27.6 (27.0-33.0) pg MCHC 30.5 L (32.0-36.0) % RDW 14.5 (11.7-14.6) % Plt Count (130-400) 10^3/uL MPV (8.0-11.0) fL Immature Gran % 0.2 % Neutrophils % 56.8 % Lymphocytes % 32.2 % Monocytes % 7.5 % Eosinophils % 2.6 % Basophils % 0.7 % Nucleated RBC % 0.0 (0.0-0.3) % Absolute Neutrophils 3.11 (1.2-6.7) 10^3/uL Absolute Lymphocytes 1.76 (1.2-3.4) 10^3/uL Absolute Monocytes 0.41 (0.1-0.8) 10^3/uL Absolute Eosinophils 0.14 (0.0-0.7) 10^3/uL Absolute Basophils 0.04 (0.0-0.2) 10^3/uL PT 9.9 (9.1-11.1) sec INR 1.0 (0.9-1.1) APTT 21.2 (20.6-30.2) sec VBG pH 7.33 (7.31-7.41) VBG pCO2 33 L (41-51) mmHg VBG pO2 126 mmHg VBG HCO3 17 L (23-28) mmol/L VBG Total CO2 16 L (24-29) mmol/L VBG O2 Saturation Not Applicable VBG Base Excess -9 L (-2-3) mmol/L Sodium 141 (136-145) mmol/L Potassium 3.8 (3.5-5.1) mmol/L Chloride 106 (98-107) mmol/L Carbon Dioxide 19.9 L (21.0-32.0) mmol/L Anion Gap 15.1 H (3-11) mmol/L BUN 10 (7-18) mg/dL Creatinine 0.7 (0.55-1.02) mg/dL Est GFR (CKD-EPI 2020) 109.98 (mL/min/1.73m2) Glucose 104 (74-106) mg/dL Calcium 8.6 (8.5-10.1) mg/dL Magnesium 2.0 (1.8-2.4) mg/dL Total Bilirubin 0.4 (0.2-1.0) mg/dL AST 33 (15-37) U/L ALT 33 (14-59) U/L Alkaline Phosphatase 108 (46-116) U/L Total Protein 7.0 (6.4-8.2) g/dL Albumin 3.2 L (3.4-5.0) g/dL Lipase 29 (<78) U/L Urine Color Yellow (Yellow) Urine Clarity Sl Cloudy (Clear) Urine pH 7.0 (5-8) Ur Specific [place] 1.020 (1.005-1.025) Urine Protein Negative (Neg-Trace) mg/dL Urine Ketones Negative (Negative) mg/dL Urine Blood Negative (Negative) Urine Nitrite Negative (Negative) Urine Bilirubin Negative (Negative) Urine Urobilinogen 1.0 H (Up to 0.2) mg/dL Ur Leukocyte Esterase Negative (Negative) Urine Glucose Negative (Negative) mg/dL Ethyl Alcohol < 3.0 (<10) mg/dL Ssdor-df-Lyof Documentation POC Urine Test Start: 01/07/25 11:31 Freq: Status: Active Protocol: Activity Type Activity Date Activity User E-sign Co-sign Detail Recorded Client Recorded Date Recorded By Document 01/07/25 11:31 PA [id number] 01/07/25 11:31 PA Intake and Output - 24 Hour Total 01/07/25 11:11 thru 01/07/25 16:14 Intake Total 1591.1 Balance 1591.1 Weight 256 lb 13.416 oz Intake: IV 1151.1 Oral 440 Other: Urine Appearance Clear Falls Risk Assessment History of Falls Previous History 01/07/25 15:50 Contributing Factors Impairments,Medications 01/07/25 15:50 Ambulatory Aids Independent 01/07/25 15:50 Tubes/Lines None 01/07/25 15:50 Gait Evaluation No gait disturbance 01/07/25 15:50 Cognition No cognitive impairment 01/07/25 15:50 Fall Total Score 21 01/07/25 15:50 Level of Risk Standard/Low Risk 01/07/25 15:50 Problems (Last Updated 12/30/24 @ 15:17 by Parul Mccormick NP) Chronic pain (Chronic) Depression (Chronic) On deep vein thrombosis (DVT) prophylaxis (Acute) Alcohol abuse with withdrawal (Acute) v v v v v v v v v Sending and/or Receiving Nurses: Please use comment section below to note any information pertinent to the patient hand-off not included above. Information / Comments: Loading dose Phenobarbital 140mg IVPB given. Report received from: Teri ePrez RN
[2025-01-07] MEDS: PHENobarbital 110 MG in Normal Saline 50 ML 100 MG IVPB (20:43)
[2025-01-07] MEDS: Acetylcysteine 600 MG CAP 1200 MG PO (20:45)
[2025-01-07] MEDS: Topiramate 25 MG TAB 50 MG PO (20:45)
[2025-01-07] MEDS: acetaZOLAMIDE 250 MG TAB PO (20:45)
[2025-01-07] MEDS: Prazosin 2 MG CAP PO (20:45)
[2025-01-07] MEDS: Gabapentin 300 MG CAP 1200 MG PO (20:45)
[2025-01-07] MEDS: Pantoprazole 40 MG VIAL IVP (20:46)
[2025-01-08 03:15] VITALS: BP 98/66; PULSE 86; RESP 20; TEMP 36.5; O2SAT 99
[2025-01-08] MEDS: Ibuprofen 400 MG TAB PO ×3 (03:20→20:14)
[2025-01-08 03:59] LABS: *AMPHETAMINES SCREEN URINE Negative (Negative); *BARBITURATES SCREEN URINE Negative (Negative); *BENZODIAZEPINES SCREEN URINE Negative (Negative); Cannabinoids THC Negative (Negative); Cocaine Screen,Urine Negative (Negative); METHADONE URINE SCREEN Negative (Negative); OPIATES URINE SCREEN Negative (Negative)
[2025-01-08 04:48] LABS: Tricyclic Antidepressants Positive (Negative)
[2025-01-08] MEDS: PHENobarbital 130 MG/ML VIAL IVP (05:46)
[2025-01-08] MEDS: Normal Saline Flush 10 ML SYR IVP ×4 (05:46→20:20)
[2025-01-08 07:47] LABS: ALT 33 U/L (14-59); AST 27 U/L (15-37); Albumin 2.7 g/dL (3.4-5.0); Alkaline Phosphatase 91 U/L (46-116); Anion Gap 6.5 mmol/L (3-11); BUN 7 mg/dL (7-18); Bilirubin, Direct 0.1 mg/dL (0.0-0.2); Bilirubin, Total 0.3 mg/dL (0.2-1.0); CO2 24.5 mmol/L (21.0-32.0); CREATININE 0.6 mg/dL (0.55-1.02); Calcium 7.8 mg/dL (8.5-10.1); Chloride 109 mmol/L (98-107); Estimated GFR 114.15 (mL/min/1.73m2); Glucose 87 mg/dL (74-106); Magnesium 1.8 mg/dL (1.8-2.4); Potassium 3.2 mmol/L (3.5-5.1); Sodium 140 mmol/L (136-145)
[2025-01-08] MEDS: Citalopram 20 MG TAB 40 MG PO (07:53)
[2025-01-08] MEDS: Topiramate 25 MG TAB 50 MG PO ×2 (07:53→20:14)
[2025-01-08] MEDS: Magnesium Oxide 400 MG TAB PO (07:53)
[2025-01-08] MEDS: Acetylcysteine 600 MG CAP 1200 MG PO ×2 (07:53→20:15)
[2025-01-08] MEDS: ARIPiprazole 5 MG TAB 10 MG PO (07:53)
[2025-01-08] MEDS: acetaZOLAMIDE 250 MG TAB PO ×2 (07:53→20:15)
[2025-01-08] MEDS: Thiamine 100 MG TAB PO (07:53)
[2025-01-08] MEDS: Gabapentin 300 MG CAP 1200 MG PO ×2 (07:53→14:08)
[2025-01-08] MEDS: Fluticasone NASAL SPRAY 16 GM BTL NS (07:54)
[2025-01-08 07:58] VITALS: BP 102/71; PULSE 91; RESP 16; TEMP 37; O2SAT 97
[2025-01-08 08:27] LABS: PHOSPHORUS 2.8 mg/dL (2.6-4.7)
[2025-01-08] MEDS: MULTIVITAMIN 10 ML, THIAMINE 100 MG, FOLIC ACID 1 MG in DEXTROSE 5%-0.45% SALINE 1,000 ML 42 ML IV (08:39)
--- NOTE | 2025-01-08 09:28 | INITIAL_ITS ---
Date of service: 01/08/25 Time of Service: 09:28 Care Management Initial Assmt Initial Assessment Reason for Hospitalization: ETOH withdraw Functional Status/Living Situation Patient Presentation: Maritza was lying in bed, when CM arrived. She presented to the ED with a history of chronic alcoholism and an episodes of withdrawal. She is living in a home with her parents, in [facility]. She states, her parents are good supports for her. Maritza is motivated to participate with inpatient treatment for her alcohol use. She states, she has called [facility] and [facility]; Per Maritza, they do not have any beds, at this time. CM provided patient with local community resources and paged the Customer Service Teller - who will see Maritza, today. They will provide resources and support to Maritza. Per Alex Membreno (Customer Service Teller), the [facility] would like a progress note and a signed release of information form. CM contacted the [facility] and requested they send their release form (f. [phone]). With patient permission, the H&P was sent with the release form. CM will continue to follow. Town of Residence: [facility] Resides with: Parent Significant Other/Family: Local Natural Supports: Family Employment Status: Unemployed Instrumental Activities of Daily Living (ADLs): Independent Medications Medication Management: No Issues/Barriers identified Advance Directives Advance Directives: Do you have an Advance Directive: N , 14:01 AD On File at [facility]: N 11/13/17, 14:01 Date Asked 08/22/23 08/22/23, 12:35 AD Date Reviewed COLST On File at [facility] COLST Date Scanned Code Status Resuscitation Status Full Code Portal Pt does not currently have a portal and education provided: Yes Insurance Coverage/Financial Issues Insurance: Medicaid of [place] - [id number] Care Team Visit Care Team Role Provider Type Bernabe Tomlinson Primary Care Provider NON-[facility] STAFF PHYSICIAN Abelardo Bass DO Emergency Provider [facility] STAFF PHYSICIAN Armond Grire MD Admit Provider [facility] STAFF PHYSICIAN Attending Provider Discharge Potential Discharge Needs: PCP F/U Appt Anticipated Barriers to Discharge: None Identified Patient/Family Education Needs: Review discharge instructions, discuss Ask Me Three Transportation: Private vehicle Plan: Anticipate, Maritza will be discharged home, once medically ready. Maritza will follow up with her community providers, [facility] in 10 days (01/18/25), and plan of care. She will transport via private vehicle by her mom. CM will continue to follow. Social Determinants of Health Screening Social Determinants of health last assessed in clinic: 01/08/25 Will the Patient Participate in the Screening?: Yes Do you worry about having a steady place to live?: no Problems where you live: no known problems In the past 12 months, have you had to go without electric, gas, oil or water in your home?: no 1. Within the past 12 months, we worried whether our food would run out before we got money to buy more.: Never true 2. Within the past 12 months, the food we bought just didn't last and we didn't have money to get more.: Never true Has lack of transportation kept you from medical appointments or from doing things needed for daily living?: no Has anyone in your life made you feel unsafe or unsupported?: no How hard is it for you to pay for the very basics like food, housing, medical care, and heating? Would you say it is:: Not hard at all Do you want help finding or keeping work or a job?: I do not need or want help If for any reason you need help with day-to-day activities such as bathing, preparing meals, shopping, managing finances, etc., do you get the help you need?: I don?t need any help How often do you feel lonely or isolated from those around you?: Sometimes Do you speak a language other than Yoruba at home?: No Does the patient want assistance with any of the above?: No Health Related Social Needs Health related social needs: feeling lonely/isolated (Z60.8) Health related social needs details: patient reports feeling down sometimes, recently moved back to the parent's house in [place]. PFSH All Active Problems (Updated 01/07/25 @ 15:55 by Abelardo Bass DO) Alcohol withdrawal (Acute) Chronic pain (Chronic) Depression (Chronic) On deep vein thrombosis (DVT) prophylaxis (Acute) Alcohol abuse with withdrawal (Acute) Auditory complaints of right ear (Acute) ENT complaint (Acute) Perimenopausal (Acute) Unspecified eustachian tube disorder, right ear (Acute) Medical History (Updated 01/07/25 @ 15:55 by Abelardo Bass DO) Rosacea Chronic insomnia Myofascial pain syndrome Chronic headache disorder Meniere's disease Chronic pain syndrome Alcoholism Mood disorder Iron deficiency anemia Obesity HLD (hyperlipidemia) Folic acid deficiency Surgical History (Updated 11/04/24 @ 09:54 by Patricia Wade RN) History of bariatric surgery Family History Father Neoplasm Squamous Cell Mother Essential hypertension Hemochromatosis Hyperlipidemia Neoplasm Thyroid Meniere's disease Social History Smoking/Tobacco Use Status: Never Smoking risk assessment performed?: Yes Alcohol Intake: current Alcohol Intake frequency: 3 or more drinks per day Alcohol type: hard liquor Drug use: Never Substance use type: does not use Housing: apartment Do you feel safe in your relationship?: Yes Readmission Within the Past 30 Days Yes or No: No
[2025-01-08] MEDS: Acetaminophen 325 MG TAB 650 MG PO (11:06)
[2025-01-08 11:37] VITALS: BP 100/70; PULSE 88; RESP 18; TEMP 36.6; O2SAT 97
[2025-01-08] MEDS: Acetaminophen 250 mg/Aspirin 250 mg/Caffeine 65 mg TAB 2 EACH PO (14:34)
--- NOTE | 2025-01-08 14:47 | PGE_ITS ---
Date of Service Date of service: 01/08/25 Time of Service: 14:47 Assessment and Plan Assessment and plan (1) Alcohol abuse with withdrawal: Status: Acute Assessment and plan: Librium failed in the ED dizziness could be d/t meniere's as the patient was able to stop tremors to execute fine movements phenobarbital at 6 mg /kg loading dose completed Discontinue PRN IVP phenobartbital as per point 2 soft stop = 890 mg, hard stop = 1186 mg--Calculated by pharmacist Will hold sedating RX - and reintegrate as needed Nausea- vomiting : PRN compaizine ,advance diet as tolerated (2) Arrhythmia: Status: Acute Assessment and plan: SR with sinus pause causing overall HR to transiently (4- 5 sec) decrease around 30 bpm, with ventricular escape beat then retun to SNR- asymtomatic starting around 16:48 on 01/07 -no further episode since 11:30 today D/c phenobarbital Ongoing telemetry overnight (3) Meniere's disease: Assessment and plan: Continue home meds regimen (4) Depression: Status: Chronic Assessment and plan: Continue home meds (5) Chronic pain: Status: Chronic Assessment and plan: Onging PRN ibuprofen and continue home medicine regimen (6) Obesity: Assessment and plan: Counseling re: weight management and encourage to discuss GLP-1 inhibitors with PCP (7) HLD (hyperlipidemia): Assessment and plan: As per labs on 09/2024 No statin listed - and patient not aware as per discussion Will repeat lipid panel in AM and discuss initiating statin inpatient with f/u by PCP VS PCP management (8) Headache: Status: Acute Assessment and plan: stop PRN acetaminiphen Take Excedrin at home - ordered PRN (9) Discharge planning issues: Status: Acute Assessment and plan: 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 Grier Subjective Subjective Patient reports: feels better, tolerating liquids well, voiding w/o difficulty, bowel movement and diarrhea; denies blood in stool, vomiting, shortness of breath or fever Exam Narrative Exam Narrative: morbidly obese fatigued appearing 44 yo female, looking older than sated age, in no acute distress, sleepy but arousal, alert and oriented X4, neurologically intact, no obseved tremors with purposeful movement, clears lung, S1, S2 tele- SR with sinus pause 4- 5sec with escape beat - less frequent this PM , no murmur, PPPX4, moves all 4 ext. Objective Last Vital Signs Temp 36.6 C 01/08/25 11:37 Pulse 88 01/08/25 11:37 Resp 18 01/08/25 11:37 BP 100/70 01/08/25 11:37 Pulse Ox 97 01/08/25 11:37 Laboratory Results - last 24 hr 01/07/25 01/08/25 11:30 06:00 Sodium 140 Potassium 3.2 L Chloride 109 H Carbon Dioxide 24.5 Anion Gap 6.5 BUN 7 Creatinine 0.6 Est GFR (CKD-EPI 2020) 114.15 Glucose 87 Calcium 7.8 L Phosphorus 2.8 Magnesium 1.8 Total Bilirubin 0.3 Conjugated Bilirubin 0.1 AST 27 ALT 33 Alkaline Phosphatase 91 Total Protein 6.0 L Albumin 2.7 L Urine Opiates Screen Negative Urine Methadone Screen Negative Ur Barbiturates Screen Negative Ur Tricyclics Screen Positive A Ur Amphetamines Screen Negative U Benzodiazepines Scrn Negative Urine Cocaine Screen Negative Ur THC Screen Negative PAWSS Have you Been Recently Intoxicated or Drunk Within the Last 30 days?: Yes Have you Ever Experienced Previous Episodes of Alcohol Withdrawal?: Yes Have you ever Experienced Withdrawal Seizures?: No Have you ever Experienced Delirium Tremens(DT)s?: No Have you ever undergone Alcohol Rehabilitation Treatment (i.e, inpt ot outpatient treatment programs)?: Yes Have you ever Experienced Blackouts?: Yes Have you ever Combined Alcohol with other Downers within the last 90 days?: Yes Have you ever Combined Alcohol with any other Substance of Abuse during the last 90 days?: Yes Evidence of Increased Autonomic Activity (i.e. HR>120, tremor, sweating, agitation, nausea)?: Yes Result: 7 Time Spent with Patient Time Spent with Patient: >50 minutes Time was spent: preparing to see the patient(eg.review tests), obtaining and/or reviewing separately otained hiistory, ordering medications,tests, procedures, referring, communicating with other health rn intensive care unit, indepentently interpreting results, counseling the patient and care coordination
[2025-01-08 15:00] VITALS: BP 131/77; PULSE 92; RESP 14; TEMP 36.5; O2SAT 95
[2025-01-08] MEDS: Potassium Chloride 20 MEQ TABCR 40 MEQ PO (16:55)
[2025-01-08 19:48] VITALS: BP 112/60; PULSE 87; RESP 12; TEMP 36.4; O2SAT 98
[2025-01-08] MEDS: Enoxaparin 40 MG/0.4 ML SYR SC (20:13)
[2025-01-08] MEDS: Pantoprazole 40 MG VIAL IVP (20:13)
[2025-01-08] MEDS: Melatonin 3 MG TAB PO (20:14)
[2025-01-08] MEDS: QUEtiapine 50 MG TAB PO (20:14)
[2025-01-08] MEDS: Prazosin 2 MG CAP PO (20:15)
[2025-01-09 00:45] VITALS: BP 100/59; PULSE 83; RESP 16; TEMP 36.7; O2SAT 97
[2025-01-09] MEDS: Prochlorperazine 10 MG/2 ML VIAL 5 MG IVP (02:48)
[2025-01-09 04:34] VITALS: BP 110/58; PULSE 88; RESP 16; TEMP 36.7; O2SAT 94
[2025-01-09 07:07] LABS: ALT 33 U/L (14-59); AST 34 U/L (15-37); Albumin 2.5 g/dL (3.4-5.0); Alkaline Phosphatase 90 U/L (46-116); Anion Gap 9.5 mmol/L (3-11); BUN 9 mg/dL (7-18); Bilirubin, Total 0.3 mg/dL (0.2-1.0); CO2 19.5 mmol/L (21.0-32.0); CREATININE 0.7 mg/dL (0.55-1.02); Calcium 7.9 mg/dL (8.5-10.1); Calculated LDL 110 mg/dL (<100); Chloride 108 mmol/L (98-107); Cholesterol 200 mg/dL (<200); Estimated GFR 109.98 (mL/min/1.73m2); Glucose 89 mg/dL (74-106); HDL Cholesterol 45 mg/dL (>or=50); Potassium 3.8 mmol/L (3.5-5.1); Sodium 137 mmol/L (136-145); Total Protein 5.9 g/dL (6.4-8.2); Triglyceride 227 mg/dL (<150)
[2025-01-09 07:12] VITALS: BP 118/74; PULSE 89; RESP 17; TEMP 36.4; O2SAT 99
[2025-01-09] MEDS: acetaZOLAMIDE 250 MG TAB PO (08:28)
[2025-01-09] MEDS: Thiamine 100 MG TAB PO (08:28)
[2025-01-09] MEDS: Magnesium Oxide 400 MG TAB PO (08:28)
[2025-01-09] MEDS: Acetylcysteine 600 MG CAP 1200 MG PO (08:29)
[2025-01-09] MEDS: ARIPiprazole 5 MG TAB 10 MG PO (08:29)
[2025-01-09] MEDS: Topiramate 25 MG TAB 50 MG PO (08:29)
[2025-01-09] MEDS: Normal Saline Flush 10 ML SYR IVP (08:29)
[2025-01-09] MEDS: Citalopram 20 MG TAB 40 MG PO (08:29)
--- NOTE | 2025-01-09 09:19 | CMDISCH_ITS ---
Date of service: 01/09/25 Time of Service: 09:20 LACE Index Scoring Tool Questions: Length of Stay (in days): 2 Was the patient admitted via the E.D.?: No E.D. Visits: 3 Answers: Total Score: 5 Risk of Readmission: Low Risk Care Management Discharge Plan Reason for Hospitalization: YOLA, UTI Discharge Plan: Maritza will be discharged home. Maritza will follow up with her community providers, [facility] in 10 days (01/18/25), and plan of care. Maritza states she has been accepted for a day program treatment and will be sent from the community on Sunday. She will transport via private vehicle by her dad. Patient/Family Education Needs: Review of discharge instructions, activity, limitations, and plan of care. Discuss Ask Me Three. SDOH Health Related Social Needs: Health related social needs lonely/isolated Health related social needs details patient reports fe eling down sometimes, recently moved back to the parent's house in [place]. Health related social needs details: patient reports feeling down sometimes, recently moved back to the parent's house in [place].
--- NOTE | 2025-01-09 11:02 | W.PM.DS.N ---
Date of service: 01/09/25 Time of Service: 11:02 DS: Diagnosis Discharge Diagnosis (1) Alcohol abuse with withdrawal: Status: Acute (2) Arrhythmia: Status: Acute (3) Meniere's disease: (4) Depression: Status: Chronic (5) Chronic pain: Status: Chronic (6) Obesity: (7) HLD (hyperlipidemia): (8) Headache: Status: Acute Discharge Plan Disposition Patient Disposition: Home Condition: Improving Discharge Details Reason For Visit: etoh withdrawl Admit Date/Time: 01/07/25 14:23 Admit Provider: Armond Grier Attending Provider: Armond Grier Primary Care Provider: John Lyn Hospital Course Hospital Course: This is a 44-year-old female patient past medical history significant for alcohol use disorder admitted for treatment of alcohol withdrawal. She was treated with phenobarb. Hemodynamically she remained stable. While being monitored on telemetry she was noted to have sinus pauses, 4 seconds, with ventricular escape beat and then resumption of normal sinus rhythm. QTc 480. She was asymptomatic with no chest pain shortness of breath dizziness. Her case was discussed with cardiology at [facility] and plan is for outpatient cardiology evaluation. She was placed on a 30-day lunchroom monitor and will follow-up outpatient with her primary care provider. She should also be evaluated for sleep apnea. She is being discharged to home with no new services she can resume her usual medications as previously directed. She was advised to return sooner for new or worsening symptoms Home Meds and New Rx's Prescriptions: Continued methocarbamol 750 mg tablet 750 mg PO TID prazosin 2 mg capsule 2 mg PO QHS Rx Instructions: for interrupted sleep and nightmares thiamine HCl (vitamin B1) 100 mg tablet 100 mg PO DAILY acetazolamide 250 mg tablet 250 mg PO BID acetylcysteine 600 mg capsule 1,200 mg PO BID albuterol sulfate 90 mcg/actuation HFA aerosol inhaler 1 - 2 puff inhalation .Q4-6H PRN citalopram 40 mg tablet 40 mg PO DAILY fluticasone propionate 50 mcg/actuation spray,suspension 2 spray intranasal DAILY Rx Instructions: administer into each nostril Headache Relief (LWA-qlxp-[id number]) 250-250-65 mg tablet 2 tab PO DAILY PRN hydroxyzine pamoate 50 mg capsule 100 mg PO BID PRN magnesium oxide 400 mg magnesium tablet 400 mg PO DAILY melatonin 10 mg tablet 10 mg PO HS topiramate 50 mg tablet 50 mg PO BID Patient Comments: TAKE ONE TABLET BY MOUTH TWICE A DAY aripiprazole 10 mg tablet 10 mg PO DAILY Patient Comments: TAKE ONE TABLET BY MOUTH EVERY DAY DIRECTED FOR MOOD gabapentin 600 mg tablet 1,200 mg PO TID Patient Comments: TAKE TWO TABLETS BY MOUTH THREE TIMES A DAY quetiapine 50 mg tablet 50 mg PO QPM Patient Comments: TAKE 3 TABLETS BY MOUTH EVERY NIGHT AT BEDTIME FOR 14 DAYS, THEN 2 TABLETS EVERY NIGHT AT BEDTIME FOR 14 DAYS, REMAIN ON 1 TABLET EVERY NIGH Discharge Instructions Instructions: Alcohol (Ethyl) Additional Instructions: wear lunchroom monitor as directed. avoid alcohol Stand Alone Forms: Nursing Discharge Form Referrals: Trinh Chinchilla MD [ [facility] STAFF PHYSICIAN, Cardiology] Referral Note: Cardiac office will give you a call to make a follow up appointment. Bernabe Tomlinson [ NON-[facility] STAFF PHYSICIAN, Medicine] John Lyn [Primary Care Provider, Medicine] - 01/16/25 9:00 am Activity:: Activity as Tolerated Equipment/Supplies:: No Equipment Needed Diet:: As Tolerated Discharge Orders Discharge Orders: Discharge Order (Routine); Ordered 01/09/25 Ordered By: Yesenia Grag Other Ambulatory Orders: Cardiac Event Recorder (Routine) Timeframe: 20250109 Facility: [facility] - Location: Respiratory Therapy Ordered By: Yesenia Garg DS: Summary Time Spent with Patient providing and/or coordinating discharge services: Greater than 30 minutes Status at Discharge Functional status at discharge: independent ambulation Overall status at discharge: patient is back to baseline Mental Status: mental status grossly normal Speech and Movement: speech and movement normal Mood: congruent mood Affect: normal affect Quality:SDOH Health Related Social Needs: Health related social needs lonely/isolated Health related social needs details patient reports feeling down sometimes, recently moved back to the parent's house in [place]. Health related social needs details: patient reports feeling down sometimes, recently moved back to the parent's house in [place]. Exam Narrative Exam Narrative: Obese female chronically ill-appearing older than stated age no acute distress resting quietly on her bed head is atraumatic eyes nonicteric noninjected oral mucosas moist neurologic she is awake alert oriented no focal deficits psychiatric appropriate mood and affect cardiovascular regular rate and rhythm respirations even and unlabored abdomen obese moves all extremities skin with no rashes or lesions Psych Mental Status: mental status grossly normal Speech and Movement: speech and movement normal Mood: congruent mood Affect: normal affect DS: Data Vitals/I&O Vitals and I&O: Vital Signs Temperature 36.4 C L 01/09/25 07:12 Temperature Source Temporal Artery Scan 01/09/25 07:12 Pulse 89 01/09/25 07:12 Pulse Rhythm Regular 01/07/25 15:50 Pulse 89 01/07/25 15:10 Respiratory Rate 17 01/09/25 07:12 Respiratory Effort Normal, Non-Labored 01/07/25 15:50 Respiratory Depth Normal 01/07/25 15:50 Respiratory Pattern Normal 01/07/25 15:50 Blood Pressure 118/74 01/09/25 07:12 Blood Pressure Mean 88 01/09/25 07:12 Blood Pressure Position Sitting 01/07/25 11:13 Pulse Oximetry 99 01/09/25 07:12 Oxygen Delivery Method Room Air 01/09/25 07:12 Oxygen Flow Rate 0 01/09/25 07:12 Pain Level 7 01/09/25 07:12 Comment 4-6 legs and head 01/08/25 19:48 Intake & Output 01/08/25 01/08/25 01/09/25 11:59 23:59 11:59 Intake Total 904.1231 / 1508.5231 604.4 / 1508.5231 Output Total 700 / 1700 1000 / 1700 1700 / 1700 Balance 204.1231 / -191.4769 -395.6 / -191.4769 -1700 / -1700 Intake: IV 204.1231 / 558.5231 354.4 / 558.5231 Oral 700 / 950 250 / 950 Output: Urine 700 / 1700 1000 / 1700 1700 / 1700 Other: Urine Color Yellow Yellow Yellow Urine Appearance Clear Clear Clear Urine Odor Strong Normal Normal Comment Unable to measure as the hat in toilet had urine and a lot of toilet paper in it. Stool Size Small Small Stool Characteristics Soft Soft Mucoid Data Completed and Pending Labs on day of discharge: Labs from last 24 hours 01/09/25 06:25 Sodium 137 Potassium 3.8 Chloride 108 H Carbon Dioxide 19.5 L Anion Gap 9.5 BUN 9 Creatinine 0.7 Est GFR (CKD-EPI 2020) 109.98 Glucose 89 Calcium 7.9 L Total Bilirubin 0.3 AST 34 ALT 33 Alkaline Phosphatase 90 Total Protein 5.9 L Albumin 2.5 L Triglycerides 227 H Total Cholesterol 200 LDL Cholesterol, Calc 110 H HDL Cholesterol 45 PFSH All Active Problems (Updated 01/09/25 @ 13:30 by Yesenia Garg NP) Sinus pause (Acute) Discharge planning issues (Acute) Headache (Acute) Arrhythmia (Acute) Alcohol withdrawal (Acute) Chronic pain (Chronic) Depression (Chronic) On deep vein thrombosis (DVT) prophylaxis (Acute) Alcohol abuse with withdrawal (Acute) Auditory complaints of right ear (Acute) ENT complaint (Acute) Perimenopausal (Acute) Unspecified eustachian tube disorder, right ear (Acute) Medical History (Updated 01/09/25 @ 13:30 by Yesenia Garg NP) Rosacea Chronic insomnia Myofascial pain syndrome Chronic headache disorder Meniere's disease Chronic pain syndrome Alcoholism Mood disorder Iron deficiency anemia Obesity HLD (hyperlipidemia) Folic acid deficiency Surgical History (Updated 11/04/24 @ 09:54 by Patricia Wade RN) History of bariatric surgery Family History Father Neoplasm Squamous Cell Mother Essential hypertension Hemochromatosis Hyperlipidemia Neoplasm Thyroid Meniere's disease Social History Smoking/Tobacco Use Status: Never Smoking risk assessment performed?: Yes Alcohol Intake: current Alcohol Intake frequency: 3 or more drinks per day Alcohol type: hard liquor Drug use: Never Substance use type: does not use Housing: apartment Do you feel safe in your relationship?: Yes Time Spent with Patient Time Spent with Patient: 70-84 minutes4 Time was spent: preparing to see the patient(eg.review tests), obtaining and/or reviewing separately otained hiistory, ordering medications,tests, procedures, referring, communicating with other health critical care paramedic, indepentently interpreting results, counseling the patient and care coordination
[2025-01-09 11:30] VITALS: BP 123/87; PULSE 87; RESP 17; TEMP 36.8; O2SAT 95
[2025-01-09] MEDS: Ibuprofen 400 MG TAB PO (11:36)
--- NOTE | 2025-01-09 13:15 | CMPROGNOTE_ITS ---
Date of service: 01/09/25 Time of Service: 13:15 Care Management Progress Note Progress Note Text Progress Note Text: Maritza was lying in her bed, when CM arrived. Her dad was in the room with her, at this time. She states, she has been accepted to a day treatment program in [place], which will start Sunday. Maritza will see cardiology prior to discharge. CM will continue to follow. Discharge Potential Discharge Needs: PCP F/U Appt Anticipated Barriers to Discharge: Medical Status Patient/Family Education Needs: Review discharge instructions, discuss Ask Me Three Transportation: Private vehicle Plan: Anticipate, Maritza will be discharged home, once medically ready. Maritza will fo llow up with her community providers, [facility] on 01/18/25, and plan of care. Maritza states she has been accepted for a day program treatment and will be sent from the community on Sunday. She will transport via private vehicle by her dad. Social Determinants of Health Screening Social Determinants of health last assessed in clinic: 01/09/25 Will the Patient Participate in the Screening?: Yes Do you worry about having a steady place to live?: no Problems where you live: no known problems In the past 12 months, have you had to go without electric, gas, oil or water in your home?: no 1. Within the past 12 months, we worried whether our food would run out before we got money to buy more.: Never true 2. Within the past 12 months, the food we bought just didn't last and we didn't have money to get more.: Never true Has lack of transportation kept you from medical appointments or from doing things needed for daily living?: no Has anyone in your life made you feel unsafe or unsupported?: no How hard is it for you to pay for the very basics like food, housing, medical care, and heating? Would you say it is:: Not hard at all Do you want help finding or keeping work or a job?: I do not need or want help If for any reason you need help with day-to-day activities such as bathing, preparing meals, shopping, managing finances, etc., do you get the help you need?: I don?t need any help How often do you feel lonely or isolated from those around you?: Sometimes Do you speak a language other than Tunisian at home?: No Does the patient want assistance with any of the above?: No Health Related Social Needs Health related social needs: feeling lonely/isolated (Z60.8) Health related social needs details: patient reports feeling down sometimes, recently moved back to the parent's house in [place].
[2025-01-09] MEDS: Potassium Chloride 20 MEQ TABCR 40 MEQ PO (13:51)
== END 2025-01-09 15:17 | disposition home or self-care (01) ==
LOC: ER 11:30 → MS 15:55
PROVIDERS: Family Medicine; Nurse Practitioner Acute Care; Admitting Provider Hospitalist; Emergency Provider Student in an Organized Health Care Education/Training Program; PCP Family Medicine; Responsible Provider Nurse Practitioner Acute Care; Visit Provider Hospitalist
DX: F10.139 Alcohol abuse with withdrawal, unspecified (principal); Z68.41 Body mass index [BMI] 40.0-44.9, adult; I45.5 Other specified heart block; R51.9 Headache, unspecified; D50.9 Iron deficiency anemia, unspecified; D53.8 Other specified nutritional anemias; M79.18 Myalgia, other site; Z98.84 Bariatric surgery status; E78.5 Hyperlipidemia, unspecified; F32.A Depression, unspecified; L71.9 Rosacea, unspecified; Z79.899 Other long term (current) drug therapy; Z79.82 Long term (current) use of aspirin; E66.01 Morbid (severe) obesity due to excess calories
CPT/HCPCS: 00123; 36415; 80048; 80053; 80061; 80076; 80307; 81025; 82805; 83690; 93005; 96365; 96366; 96367; 96372; 96375; 96376; 99291; J1650; 80320; 81003; 83735; 84100; 85025; 85610; 85730; 93010; 99223; 99233; 99239; G0378; J0131; J0780; J2405; J2470; J2560; J3411

== ENCOUNTER 2025-01-09 14:47 | Outpatient (CLI) | payer MEDICAID, SELFPAY | END 2025-01-09 14:48 | disposition home or self-care (01) | PROVIDERS: PCP Family Medicine; Referring Provider Nurse Practitioner Acute Care; Visit Provider Nurse Practitioner Acute Care | DX: R55 Syncope and collapse (principal) | CPT/HCPCS: 93270 ==

== ENCOUNTER 2025-01-11 17:11 | Emergency (ER) | payer MEDICAID, SELFPAY ==
--- NOTE | 2025-01-11 17:15 | RT.EKG_ITS ---
APPROVED REPORT Exam: Resting ECG Reason for Exam: chest pain Patient Location: E HR:90 bpm ECG Measurements Heart Rate 90 AXIS NJ 188 P 55 QRSd 95 QRS 23 QT 373 T 54 QTc 458 Conclusion Sinus rhythm...normal P axis, V-rate 60- 99 Probable left atrial enlargement...P >50mS, <-0.10mV V1 Sinus Rhythm. When compared to prior 01/07/25 dereased heart rate is noted. WD
--- NOTE | 2025-01-11 17:30 | DI.RAD_ITS ---
Exam(s) XR PORTABLE CHEST AP EXAM: XR PORTABLE CHEST AP CLINICAL HISTORY: Chest pain TECHNIQUE: 2D digital imaging was performed. COMPARISON: No exams were available for comparison FINDINGS: Multiple monitoring leads overlie the chest. Moderate device is noted of the the upper chest in the midline. LUNGS: Clear. No pleural abnormality seen. HEART: Normal size. AORTA: Normal diameter. BONES: Unremarkable for age. Soft tissues: Unremarkable. IMPRESSION: No acute findings. DATA REPOSITORY: RADIATION DOSE DELIVERED:
[2025-01-11 17:32] VITALS: BP 109/60; PULSE 90; RESP 18; O2SAT 99
--- NOTE | 2025-01-11 18:01 | W.ED.GENAD ---
Discharge Plan Disposition Patient Disposition: Home Condition: Stable Discharge Details Clinical Impression: Chest pain, Costochondritis Primary Care Provider: John Lyn ED Provider: Lory Portillo Home Meds and New Rx's Prescriptions: Continued methocarbamol 750 mg tablet 750 mg PO TID prazosin 2 mg capsule 2 mg PO QHS Rx Instructions: for interrupted sleep and nightmares thiamine HCl (vitamin B1) 100 mg tablet 100 mg PO DAILY acetazolamide 250 mg tablet 250 mg PO BID acetylcysteine 600 mg capsule 1,200 mg PO BID albuterol sulfate 90 mcg/actuation HFA aerosol inhaler 1 - 2 puff inhalation .Q4-6H PRN citalopram 40 mg tablet 40 mg PO DAILY fluticasone propionate 50 mcg/actuation spray,suspension 2 spray intranasal DAILY Rx Instructions: administer into each nostril Headache Relief ([id number]) 250-250-65 mg tablet 2 tab PO DAILY PRN hydroxyzine pamoate 50 mg capsule 100 mg PO BID PRN magnesium oxide 400 mg magnesium tablet 400 mg PO DAILY melatonin 10 mg tablet 10 mg PO HS topiramate 50 mg tablet 50 mg PO BID Patient Comments: TAKE ONE TABLET BY MOUTH TWICE A DAY aripiprazole 10 mg tablet 10 mg PO DAILY Patient Comments: TAKE ONE TABLET BY MOUTH EVERY DAY DIRECTED FOR MOOD gabapentin 600 mg tablet 1,200 mg PO TID Patient Comments: TAKE TWO TABLETS BY MOUTH THREE TIMES A DAY quetiapine 50 mg tablet 50 mg PO QPM Patient Comments: TAKE 3 TABLETS BY MOUTH EVERY NIGHT AT BEDTIME FOR 14 DAYS, THEN 2 TABLETS EVERY NIGHT AT BEDTIME FOR 14 DAYS, REMAIN ON 1 TABLET EVERY NIGH Discharge Instructions Instructions: Costochondritis, Chest Pain, Adult ED Additional Instructions: At this time there is no evidence for heart attack no evidence for pneumonia or a blood clot in your lung. I do believe that this is musculoskeletal in origin. However that being said if you continue to have chest pain please follow-up with your primary care provider to discuss outpatient testing such as a stress test or an echocardiogram. Please take Tylenol or Ibuprofen with food every 4-6 hours as needed for pain and swelling. You may alternate ice and heat to see if this helps. You were given a GI cocktail here which has Maalox and lidocaine in it which will cause you to feel numb. Follow up with primary care provider in 3-5 days. Return to ED sooner if any worsening or concerns. Thank you for allowing us to care for you today Referrals: John Lyn [Primary Care Provider, Medicine] - 5 days Discharge Data Discharge Date/Time-TO BE ENTERED AT DEPARTURE: 01/11/25 21:21 HPI General Mode of arrival: ambulatory. Date/Time Provider Initiated Documentation: 01/11/25 17:14. Limitations to Documentation: no limitations. Information obtained by: patient, RN notes reviewed and old records reviewed. HPI Narrative: 44-year-old female presents to the ER with a chief complaint of midsternal sharp chest pain that began approximately an hour ago. She describes it as nonradiating, reported to the nurse dizziness with shortness of breath after working outside for approximately 30 minutes. Patient reports to me that she was at rest when this started. She was recently admitted and discharged yesterday for alcohol detox. She usually drinks about a pint a day and has not had any alcohol for approximately a week. She does vape denies any other drugs or smoking. Past medical history includes alcoholism, iron deficiency anemia, obesity, hyperlipidemia M?ni?re's disease myofascial pain syndrome. History of bariatric surgery. Related Data Home Medications ?Medication ?Instructions ?Recorded ?Confirmed acetazolamide 250 mg tablet 250 mg PO BID 11/04/24 01/07/25 acetylcysteine 600 mg capsule 1,200 mg PO BID 11/04/24 01/07/25 albuterol sulfate 90 mcg/actuation 1 - 2 puff inhalation .Q4-6H PRN 11/04/24 01/07/25 aerosol inhaler hjkoeee-lkxcepwsghuru-gkcaqrjx 250 2 tab PO DAILY PRN 11/04/24 01/07/25 mg-250 mg-65 mg tablet (Headache Relief (RDW-[id number])) citalopram 40 mg tablet 40 mg PO DAILY 11/04/24 01/07/25 fluticasone propionate 50 2 spray intranasal DAILY 11/04/24 01/07/25 mcg/actuation nasal spray,suspension hydroxyzine pamoate 50 mg capsule 100 mg PO BID PRN 11/04/24 01/07/25 magnesium oxide 400 mg PO DAILY 11/04/24 01/07/25 melatonin 10 mg tablet 10 mg PO HS 11/04/24 01/07/25 methocarbamol 750 mg tablet 750 mg PO TID 11/04/24 01/07/25 prazosin 2 mg capsule 2 mg PO QHS 11/04/24 01/07/25 thiamine HCl (vitamin B1) 100 mg 100 mg PO DAILY 11/04/24 01/07/25 tablet aripiprazole 10 mg tablet 10 mg PO DAILY 01/08/25 01/08/25 gabapentin 600 mg tablet 1,200 mg PO TID 01/08/25 01/08/25 quetiapine 50 mg tablet 50 mg PO QPM 01/08/25 01/08/25 topiramate 50 mg tablet 50 mg PO BID 01/08/25 01/08/25 Allergies Allergy/AdvReac Type Severity Reaction Status Date / Time amitriptyline Allergy Severe Numbness Verified 01/07/25 15:24 of Tongue clonazepam Allergy Unknown Stomach Verified 01/07/25 15:24 Upset diazepam Allergy Unknown Abd.Pain Verified 01/07/25 15:24 hydrochlorothiazide Allergy Unknown Dizziness, Verified 01/07/25 15:24 Hypotension hydroxyzine Allergy Unknown Fatigue Verified 01/07/25 15:24 paroxetine Allergy Unknown Insomnia, Verified 01/07/25 15:24 Lightheadedness propranolol Allergy Unknown Dizziness Verified 01/07/25 15:24 venlafaxine HCl (From Allergy Unknown Agitation Verified 01/07/25 15:24 Effexor) bupropion Allergy Anxiety Verified 01/07/25 15:24 gabapentin Allergy Unknown Verified 01/07/25 15:24 lamotrigine (From Lamictal) Allergy Other (See Verified 01/07/25 15:24 Comment) olanzapine (From Zyprexa) Allergy Unknown Verified 01/07/25 15:24 alprazolam (From Xanax) AdvReac Unknown anxiety Verified 01/07/25 15:24 naltrexone AdvReac Unknown diarrhea, Verified 01/07/25 15:24 nausea prednisone AdvReac Unknown heart Verified 01/07/25 15:24 racing General Stated Complaint: Chest Pain OMAR: 3 Review of Systems All systems reviewed & are unremarkable except as noted in HPI and below Cardiovascular Cardiovascular: Reports chest pain, Reports chest pain at rest, Reports chest pain with activity (Increased pain with movement) and Denies dyspnea Respiratory Respiratory: Denies dyspnea Exam Narrative Exam Narrative: Constitutional: Alert and oriented x3. Appears stated age. Normal body habitus. Head: Normocephalic, no trauma. Eyes: Pupils PERRL, Red reflex noted, EOM's intact. Eyelids symmetrical without lesions, discharge, or swelling. ENT: Bilateral TM's WNL, External ear normal to inspection, no mastoid TTP, swelling, or erythema, Nasal turbinates WNL, no nasal discharge. Normal dentition, Posterior pharynx WNL, no exudate. Chest: RRR, Normal S1, S2, distal pulses intact. Resp: Lungs clear to auscultation bilaterally, no wheezes, rales, or rhonchi. Abdomen: Soft, non-distended, Normoactive bowel sounds all 4 quads. Musculoskeletal: Normal gait, Moves all 4 extremities without difficulty. Skin: No suspicious rashes or lesions. Capillary refill less than 2 sec. Neurologic: Cranial nerves II-XII intact. Alert and oriented x 3. Motor: No deficits noted. Sensory: Intact bilaterally all 4 extremities. Hematologic/Lymphatic: No ecchymosis, no lymphadenopathy. Course Vital Signs Vital signs: Vital Signs Pulse 90 01/11/25 17:32 Respiratory Rate 18 01/11/25 17:32 Blood Pressure 109/60 01/11/25 17:32 Pulse Oximetry 99 01/11/25 17:32 Pulse 90 01/11/25 17:32 Respiratory Rate 18 01/11/25 17:32 Blood Pressure 109/60 01/11/25 17:32 Pulse Oximetry 99 01/11/25 17:32 Oxygen Delivery Method Room Air 01/11/25 17:32 Oxygen Flow Rate 0 01/11/25 17:32 Medical Decision Making 44-year-old female presents to the ER with a chief complaint of midsternal sharp chest pain that began approximately an hour ago. She describes it as nonradiating, reported to the nurse dizziness with shortness of breath after working outside for approximately 30 minutes. Patient reports to me that she was at rest when this started. She was recently admitted and discharged yesterday for alcohol detox. She usually drinks about a pint a day and has not had any alcohol for approximately a week. She does vape denies any other drugs or smoking. Past medical history includes alcoholism, iron deficiency anemia, obesity, hyperlipidemia M?ni?re's disease myofascial pain syndrome. History of bariatric surgery. Workup is largely unremarkable elevated D-dimer greater than 2000 CT chest with contrast shows no evidence of acute pulmonary embolism. No evidence of pulmonary infiltrate or fluid collection. There is a 3.5 mm nodule in the inferior right upper lobe. However patient is at a low risk. I will ask her to follow-up with her PCP regarding this. Patient reevaluation she reports that the aspirin helped her chest pain however it is returning slightly. Will give Toradol and a GI cocktail. Discussed home care and follow-up care and strict return instructions. Patient and family verbalized understanding. Patient tolerating p.o. without difficulty appears much improved and is ambulatory upon discharge. This text was generated using SIMIation system, please disregard any oddities of phrase or misspellings. Medical Records Medical records reviewed: Yes I reviewed the patient's medical records. Imaging Data Radiologic Study: Imaging: X-Ray Radiologist's impression: TECHNIQUE: Imaging protocol: Radiologic exam of the chest. Views: 1 view. COMPARISON: No relevant prior studies available. FINDINGS: Tubes, catheters and devices: Cardiac leads superimposed over the chest. Lungs: No alveolar infiltrate. Pleural spaces: No pleural fluid collection. No pneumothorax. Heart/Mediastinum: Normal heart size. Bones/joints: Unremarkable for patient age. IMPRESSION: No active pulmonary disease Lab Data Lab results reviewed: Yes I reviewed the patient's lab results. Labs: Laboratory Tests Range/Units 01/11/25 01/11/25 01/11/25 18:36 19:52 20:42 WBC (4.4-10.8) 10^3/uL 5.85 RBC (3.93-5.22) 10^6/uL 4.32 Hgb (11.2-15.7) g/dL 12.2 Hct (36.0-46.0) % 39.3 MCV (80-95) fL 91 MCH (27.0-33.0) pg 28.2 MCHC (32.0-36.0) % 31.0 L RDW (11.7-14.6) % 14.6 Plt Count (130-400) 10^3/uL 192 MPV (8.0-11.0) fL 10.0 Immature Gran % % 0.3 Neutrophils % % 59.3 Lymphocytes % % 28.7 Monocytes % % 9.7 Eosinophils % % 1.5 Basophils % % 0.5 Nucleated RBC % (0.0-0.3) % 0.0 Absolute Neutrophils (1.2-6.7) 10^3/uL 3.46 Absolute Lymphocytes (1.2-3.4) 10^3/uL 1.68 Absolute Monocytes (0.1-0.8) 10^3/uL 0.57 Absolute Eosinophils (0.0-0.7) 10^3/uL 0.09 Absolute Basophils (0.0-0.2) 10^3/uL 0.03 D-Dimer (<500) ng/mlFEU 1194 H Sodium (136-145) mmol/L 141 Potassium (3.5-5.1) mmol/L 3.6 Chloride (98-107) mmol/L 109 H Carbon Dioxide (21.0-32.0) mmol/L 21.3 Anion Gap (3-11) mmol/L 10.7 BUN (7-18) mg/dL 11 Creatinine (0.55-1.02) mg/dL 0.6 Est GFR (CKD-EPI 2020) (mL/min/1.73m2) 114.15 Glucose (74-106) mg/dL 84 Calcium (8.5-10.1) mg/dL 8.3 L Magnesium (1.8-2.4) mg/dL 2.1 Total Bilirubin (0.2-1.0) mg/dL 0.3 AST (15-37) U/L 45 H ALT (14-59) U/L 52 Alkaline Phosphatase (46-116) U/L 96 Troponin I (<or=51) ng/L 5 5 Cancelled Total Protein (6.4-8.2) g/dL 6.7 Albumin (3.4-5.0) g/dL 3.2 L Lipase (<78) U/L 30 Quality:SDOH Health Related Social Needs: Health related social needs lonely/isolated Health related social needs details patient reports feeling down sometimes, recently moved back to the parent's house in [place]. PFSH All Active Problems Costochondritis (Acute) Chest pain (Acute) Sinus pause (Acute) Headache (Acute) Arrhythmia (Acute) Alcohol withdrawal (Acute) Chronic pain (Chronic) Depression (Chronic) Alcohol abuse with withdrawal (Acute) Auditory complaints of right ear (Acute) ENT complaint (Acute) Perimenopausal (Acute) Unspecified eustachian tube disorder, right ear (Acute) Medical History Rosacea Chronic insomnia Myofascial pain syndrome Chronic headache disorder Meniere's disease Chronic pain syndrome Alcoholism Mood disorder Iron deficiency anemia Obesity HLD (hyperlipidemia) Folic acid deficiency Surgical History History of bariatric surgery Family History Father Neoplasm Squamous Cell Mother Essential hypertension Hemochromatosis Hyperlipidemia Neoplasm Thyroid Meniere's disease Social History Smoking/Tobacco Use Status: Never Smoking risk assessment performed?: Yes Alcohol Intake: current Alcohol Intake frequency: 3 or more drinks per day Alcohol type: hard liquor Drug use: Never Substance use type: does not use Housing: apartment Do you feel safe in your relationship?: Yes
[2025-01-11 18:54] LABS: Abs Immature Grans 0.02 10^3/uL (0.0-0.06); Absolute Basophil Count 0.03 10^3/uL (0.0-0.2); Absolute Eosinophil Count 0.09 10^3/uL (0.0-0.7); Absolute Lymphocyte Count 1.68 10^3/uL (1.2-3.4); Absolute Monocyte Count 0.57 10^3/uL (0.1-0.8); Absolute Neutrophil Count 3.46 10^3/uL (1.2-6.7); Basophils % 0.5 %; Eosinophils % 1.5 %; HCT 39.3 % (36.0-46.0); HGB 12.2 g/dL (11.2-15.7); Immature Grans % 0.3 %; Lymphocytes % 28.7 %; MCH 28.2 pg (27.0-33.0); MCV 91 fL (80-95); Monocytes % 9.7 %; Neutrophils % 59.3 %; Platelet Count 192 10^3/uL (130-400); RBC 4.32 10^6/uL (3.93-5.22); RDW 14.6 % (11.7-14.6); RDW-SD 48.8 fL; WBC 5.85 10^3/uL (4.4-10.8)
--- NOTE | 2025-01-11 19:06 | DI.[facility]AD_ITS ---
PROCEDURE INFORMATION: Exam: XR Chest Exam date and time: 01/11/2025 6:13 PM Age: 44 years old Clinical indication: Other: Chest pain; Patient has hard monitor (started Sunday (01/09/25)) TECHNIQUE: Imaging protocol: Radiologic exam of the chest. Views: 1 view. COMPARISON: No relevant prior studies available. FINDINGS: Tubes, catheters and devices: Cardiac leads superimposed over the chest. Lungs: No alveolar infiltrate. Pleural spaces: No pleural fluid collection. No pneumothorax. Heart/Mediastinum: Normal heart size. Bones/joints: Unremarkable for patient age. IMPRESSION: No active pulmonary disease. Dictated and Authenticated by: Justin Marcano MD. Orderin Bandar Henley MD
--- NOTE | 2025-01-11 19:15 | DI.CT_ITS ---
Exam(s) CT CHEST PE CTA EXAM: CT CHEST PE CTA CLINICAL HISTORY: Chest pain, elevated Dimer. TECHNIQUE: Imaging Protocol: Axial CT angiography was performed with multi- slice acquisition and multi-planar reconstructions as well as axial, coronal and sagittal MIP reconstructions. Computer aided detection (CAD) was utilized. CONTRAST MATERIAL: Intravenous: Omnipaque 350 Contrast volume:100 ml COMPARISON: CR,XR XR PORTABLE CHEST AP from 01/11/2025 FINDINGS: Pulmonary Arteries: No evidence of filling defect to suggest pulmonary emboli. Mediastinum and Ella: No dominant adenopathy or fluid collection. Pulmonary parenchyma: No consolidation or dominant measurable mass. Expiratory changes. 4 millimeter nodule right upper lobe. No follow-up recommended. Pleura: No effusion or pneumothorax. Heart: The heart is not dilated. No coronary artery calcifications are seen. Aorta: Thoracic aorta non-dilated. No dissection. Upper abdomen: No acute findings. Bones: Unremarkable for age. Tubes, Catheters, and Lines: None Soft tissues: Unremarkable. IMPRESSION: No evidence of pulmonary embolism or other acute abnormality. The preliminary [facility] report was reviewed. RADIATION DOSE DELIVERED: 130.5mGy.cm Total DLP DATA REPOSITORY: All CT scans at this facility are submitted to the National Radiology Data Registry (NRDR) Dose Index Registry (DIR) with the [employer] (ACR). RADIATION OPTIMIZATION: All CT scans at this facility use at least one of these dose optimization techniques: automated exposure control; mA and/or kV adjustment per patient size (includes targeted exams where dose is matched to clinical indication); or iterative reconstruction.
[2025-01-11 19:17] VITALS: RESP 18
[2025-01-11 19:19] LABS: ALT 52 U/L (14-59); AST 45 U/L (15-37); Albumin 3.2 g/dL (3.4-5.0); Alkaline Phosphatase 96 U/L (46-116); Anion Gap 10.7 mmol/L (3-11); BUN 11 mg/dL (7-18); Bilirubin, Total 0.3 mg/dL (0.2-1.0); CO2 21.3 mmol/L (21.0-32.0); CREATININE 0.6 mg/dL (0.55-1.02); Calcium 8.3 mg/dL (8.5-10.1); Chloride 109 mmol/L (98-107); Estimated GFR 114.15 (mL/min/1.73m2); Glucose 84 mg/dL (74-106); Lipase 30 U/L (<78); Magnesium 2.1 mg/dL (1.8-2.4); Potassium 3.6 mmol/L (3.5-5.1); Sodium 141 mmol/L (136-145); Total Protein 6.7 g/dL (6.4-8.2); Troponin I 5 ng/L (<or=51)
[2025-01-11 19:23] LABS: D-Dimer 1194 ng/mlFEU (<500)
[2025-01-11] MEDS: Aspirin 81 MG CHEW 324 MG CH (19:30)
[2025-01-11] MEDS: Normal Saline - Diluent 50 ML VIAL IJ (20:06)
[2025-01-11] MEDS: Omnipaque 350 MG/ML 100 ML BTL IJ (20:06)
[2025-01-11 20:23] LABS: Troponin I 5 ng/L (<or=51)
--- NOTE | 2025-01-11 20:31 | DI.VRAD_ITS ---
PROCEDURE INFORMATION: Exam: CTA Chest With Contrast Exam date and time: 01/11/2025 8:01 PM Age: 44 years old Clinical indication: Chest pain, elevated d-dimer TECHNIQUE: Imaging protocol: Computed tomographic angiography of the chest with contrast. Exam focused on the arteries. 3D rendering (Not supervised by radiologist): MIP and/or 3D reconstructed images were created by the technologist. Contrast material: 350; Contrast volume: 100 ml; Contrast route: INTRAVENOUS (IV); COMPARISON: CR XR PORTABLE CHEST AP 01/11/2025 6:13 PM FINDINGS: Pulmonary arteries: No evidence of acute pulmonary embolism. Aorta: Normal caliber thoracic aorta without dissection or aneurysm. Lungs: No acute alveolar or ground glass infiltrate. 3.5 mm nodule within the inferior right upper lobe (image 55, series 12). Lingular linear parenchymal scarring or subsegmental collapse / atelectasis. Pleural spaces: No pleural fluid collection. No pneumothorax. Heart: No right ventricular strain. No pericardial effusion. Lymph nodes: No enlarged lymph nodes. Stomach: Prior gastric sleeve surgery. Bones/joints: Unremarkable for patient age. Soft tissues: Unremarkable. IMPRESSION: 1. No evidence of acute pulmonary embolism. 2. No acute pulmonary infiltrate or pleural fluid collection. 3. 3.5 mm nodule within the inferior right upper lobe (image 55, series 12). For patients at low risk (minimal or absent history of smoking and of other known risk factors), no routine follow-up is indicated. For patients at high risk (history of smoking or of other known risk factors), consider optional CT Chest at 12 months. (Reference: Saurabh). REFERENCES: Saurabh H, et al. Guidelines for Management of Incidental Pulmonary Nodules Detected on CT Images: From the Fleischner Society 2017. Radiology. 2017;284(1):228-243. Dictated and Authenticated by: Justin Marcano MD. Orderin Bandar Henley MD
[2025-01-11] MEDS: Lidocaine 2% Viscous 15 ML CUP PO (21:17)
[2025-01-11] MEDS: Ketorolac 15 MG/ML VIAL IVP (21:17)
[2025-01-11] MEDS: Mylanta Suspension 30 ML CUP PO (21:17)
[2025-01-11 21:21] VITALS: BP 158/95; PULSE 80; RESP 16; O2SAT 100
== END 2025-01-11 21:21 | disposition home or self-care (01) ==
PROVIDERS: Emergency Provider Registered Nurse Emergency; PCP Family Medicine
DX: R07.9 Chest pain, unspecified (principal); M94.0 Chondrocostal junction syndrome [Tietze]; E78.5 Hyperlipidemia, unspecified
CPT/HCPCS: 71275; 80053; 83690; 93005; 96374; 99285; 71045; 83735; 84484; 85025; 85379; 93010; J1885; J3490

== ENCOUNTER 2025-03-28 16:38 | Emergency (ER) | payer MEDICAID, SELFPAY ==
[2025-03-28 16:39] VITALS: BP 121/82; PULSE 97; RESP 17; TEMP 36.4; O2SAT 95
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
== END 2025-03-28 17:26 | disposition home or self-care (01) ==
PROVIDERS: Emergency Provider Physician Assistant; PCP Family Medicine
DX: B36.9 Superficial mycosis, unspecified (principal)
CPT/HCPCS: 99283 ×2

== ENCOUNTER 2025-05-23 19:29 | Emergency (ER) | payer MEDICAID, SELFPAY ==
[2025-05-23 19:36] VITALS: BP 119/86; PULSE 101; RESP 20; TEMP 37.1; O2SAT 96
--- NOTE | 2025-05-23 20:15 | DI.RAD_ITS ---
Exam(s) XR CHEST 2V PA LATERAL EXAM: XR CHEST 2V PA LATERAL CLINICAL HISTORY: right chest pain and cough. TECHNIQUE: 2D digital imaging was performed. COMPARISON: CR,XR XR PORTABLE CHEST AP from 01/11/2025 FINDINGS: 2 views: Heart size is normal. The mediastinum is not widened. Lungs are clear. No infiltrates nor pleural effusions. Improvement when compared to the 01/11/2025 chest x-ray IMPRESSION: No acute pulmonary findings. Preliminary V rad report was reviewed Final report called by myself to ER physician 05/24/2025 at 3:15 p.m. DATA REPOSITORY: RADIATION DOSE DELIVERED:
--- NOTE | 2025-05-23 21:13 | DI.VRAD_ITS ---
PROCEDURE INFORMATION: Exam: XR Chest Exam date and time: 05/23/2025 8:54 PM Age: 44 years old Clinical indication: Chest wall pain and right-sided; Right sided chest pain and cough TECHNIQUE: Imaging protocol: Radiologic exam of the chest. Views: 2 views. COMPARISON: CT CHEST PE CTA 11/01/2025 20:01 FINDINGS: Lungs: There are diffuse interstitial infiltrates present. This may represent cardiogenic versus noncardiogenic edema. An acute inflammatory process and/or infectious process/pneumonia are not excluded. Pleural spaces: There is no evidence of pneumothorax. There are no pleural effusions present. Heart/Mediastinum: The cardiac structures are normal. The mediastinal contour is normal. Vasculature: The aorta is normal. Bones/joints: The skeletal structures and soft tissues show no evidence of fracture or other acute processes. Soft tissues: The soft tissues of the extrathoracic region are unremarkable. IMPRESSION: There are diffuse interstitial infiltrates present. This may represent cardiogenic versus noncardiogenic edema. An acute inflammatory process and/or infectious process/pneumonia are not excluded. Dictated and Authenticated by: Kenneth Tyler MD. Orderin Steffen Echeverria MD
[2025-05-23] MEDS: Ketorolac 10 MG TAB PO (21:39)
[2025-05-23] MEDS: Albuterol HFA 8 GM 60 PUFF INH IH (21:40)
[2025-05-23] MEDS: Doxycycline Hyclate 100 MG, 2 CAPS/BTL PO (21:41)
[2025-05-23 21:43] VITALS: BP 123/74; PULSE 75; RESP 18; O2SAT 99
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
== END 2025-05-23 21:46 | disposition home or self-care (01) ==
PROVIDERS: Emergency Provider Physician Assistant; PCP Family Medicine
DX: J18.9 Pneumonia, unspecified organism (principal)
CPT/HCPCS: 99284; 99283; 71046

== ENCOUNTER → 2025-07-03 01:11 | Outpatient (CLI) | payer MEDICAID, SELFPAY ==
--- NOTE | 2025-07-03 08:15 | DI.RAD_ITS ---
Exam(s) XR CHEST 2V PA LATERAL EXAM: XR CHEST 2V PA LATERAL CLINICAL HISTORY: F/U PNEUMONIA,J18.9 TECHNIQUE: 2D digital imaging was performed. Two views. COMPARISON: CR,XR XR PORTABLE CHEST AP from 01/11/2025 CR,XR XR CHEST 2V PA LATERAL from 05/23/2025 FINDINGS: HEART: Normal size. Aorta: Not dilated. PULMONARY VASCULATURE: Normal. MEDIASTINUM: Unremarkable. LUNGS: Clear. PLEURAL SPACE: No pleural effusion or pneumothorax. BONE:Unremarkable for age. SOFT TISSUES: Unremarkable. IMPRESSION: No acute abnormality. DATA REPOSITORY: RADIATION DOSE DELIVERED:
== END ==
LOC: DI 01:11
PROVIDERS: PCP Family Medicine; Visit Provider Family Medicine
DX: J18.9 Pneumonia, unspecified organism (principal)
CPT/HCPCS: 71046